=== PATIENT | female | born 1975 | race Caucasian/White ===

== ENCOUNTER 2018-11-30 12:54 | Emergency (ER) | payer OTHER, SELFPAY ==
[2018-11-30 13:09] VITALS: BP 106/49; PULSE 93; RESP 16; TEMP 36.5; O2SAT 96
--- NOTE | 2018-11-30 13:22 | DI.RAD_ITS ---
SYMPTOMS/DIAGNOSIS: LATERAL PAIN AND SWELLING S/P FALL RIGHT ANKLE: Soft tissue swelling is demonstrated over the lateral malleolus. There is no evidence of a fracture or dislocation.
--- NOTE | 2018-11-30 13:25 | ED.GENADUL_ITS ---
Discharge Plan Disposition Patient Disposition: HOME Condition: Improving Discharge Details Chief Complaint: Orthopedic Clinical Impression: Right ankle sprain Primary Care Provider: Geovanna Spencer V ED Provider: Ken Palacios Home Meds and New Rx's Prescriptions: No Action aspirin 325 MG tablet 325 mg PO DAILY RF: 0 eletriptan [Relpax] 20 MG tablet 20 mg PO ONCE RF: 0 cyclobenzaprine 5 MG tablet 5 mg PO TID RF: 0 ibuprofen 800 MG tablet 800 mg PO RF: 0 Discharge Instructions Instructions: Ankle Sprain (ED) Additional Instructions: Nonweightbearing with use of crutches 3 to 5 days time, then begin crutch walking, then walking with boot, then wean from boot entirely over approximately 2 weeks. Elevate, ice to reduce pain and swelling. Return for any other acute concerns. Tylenol and/or ibuprofen as needed for discomfort. Medical Decision Making 43-year-old female who slipped while climbing into a truck, falling backwards on her ankle and rolling it. She did not hurt her self in any other way. She arrives with a tender and swollen right lateral malleolus. Referred for x-ray which does not reveal underlying fracture. Consistent with acute right ankle sprain. She is significantly swollen and tender. Will place an equalizer walking boot with crutches. She understands outpatient plan to wean from crutch walking, subsequent wean from the boot. She will return for worsening or any other acute concern. HPI General Mode of arrival: ambulatory . Date/Time Provider Initiated Documentation: 11/30/18 13:12 . Limitations to Documentation: no limitations . Information obtained by: patient . History of Present Illness 43 year old F presents to the emergency department with the chief complaint of Right ankle pain after fall, described as mild and moderate, Quality is described as dull and constant, and is localized to the right and lower extremity. Patient reports no radiation. Patient started experiencing this hour(s) and it has been constant. No relieving factors improve symptom(s), No exacerbating factors reported . Patient notes other (No other injury, no numbness or to going). Patient did receive the following treatments prior to arrival, other (Tylenol) Related Data Home Medications Medication Instructions Recorded Confirmed aspirin 325 mg PO DAILY tab-cap 02/13/16 11/30/18 cyclobenzaprine 5 mg PO TID tab-cap 02/13/16 11/30/18 eletriptan [Relpax] 20 mg PO ONCE tab-cap 02/13/16 11/30/18 ibuprofen 800 mg PO 03/18/16 Allergies Allergy/AdvReac Type Severity Reaction Status Date / Time clarithromycin Allergy Unknown Unverified 11/30/18 13:12 promethazine Allergy Unknown Unverified 11/30/18 13:12 General Stated Complaint: Orthopedic MAC: 4 Review of Systems Review of Systems No head/neck/chest/back/abdominal injury. No numbness or tingling. 6 systems reviewed and otherwise no PFSH Social History Smoking/Tobacco Use Status: Current every day Tobacco Type: cigarettes Alcohol Intake: never Substance use type: does not use Exam Narrative Exam Narrative: GEN: awake, alert, oriented 3. Pleasant, well groomed, interactive. HEAD: Normocephalic, atraumatic ENT: Mucous membranes moist, oropharynx unremarkable, External ear exam unremarkable EYES: PERRL, EOMI NECK: Full ROM, no GODFREY, no menigismus CHEST/RESP: Nontender, clear to auscultation bilateral, no wheeze/rhonchi/rales CARDIOVASCULAR: RRR, no murmur, rub mary. 2+ Rad pulse bilateral ABDOMEN: Soft, nontender, no mass. +Bowel sounds EXT: Right lateral malleoli or tenderness, swelling. No significant tenderness or laxity of the knee. No significant tenderness or laxity of the hip. The right ankle motor is limited by pain. 2+ DP bilateral lower extremity. Sensation intact throughout Neuro: Grossly normal neurologic exam, conversant, interactive. Psych: Speech fluent, thoughts congruent, affect normal Course Vital Signs Temperature 36.5 C 11/30/18 13:09 Pulse 93 H 11/30/18 13:09 Respiratory Rate 16 11/30/18 13:09 Blood Pressure 106/49 L 11/30/18 13:09 Pulse Oximetry 96 11/30/18 13:09 Temperature 36.5 C 11/30/18 13:09 Temperature Source Skin 11/30/18 13:09 Pulse 93 H 11/30/18 13:09 Respiratory Rate 16 11/30/18 13:09 Respiratory Effort Non-Labored 11/30/18 13:09 Blood Pressure 106/49 L 11/30/18 13:09 Blood Pressure Position Sitting 11/30/18 13:09 Pulse Oximetry 96 11/30/18 13:09 Oxygen Delivery Method Room Air 11/30/18 13:09 Oxygen Flow Rate 0 11/30/18 13:09 Pain Level 10 11/30/18 13:09
[2018-11-30 14:37] VITALS: BP 106/49; PULSE 93; RESP 16; TEMP 36.5; O2SAT 96
[2018-11-30] MEDS: Ibuprofen 800 MG TAB (14:38)
== END 2018-11-30 14:39 | disposition home or self-care (01) ==
PROVIDERS: Emergency Provider Emergency Medicine; PCP Family Medicine
DX: S93.401A Sprain of unspecified ligament of right ankle, initial encounter (principal); V58.4XXA Person boarding or alighting a pick-up truck or van injured in noncollision transport accident, initial encounter; X50.9XXA Other and unspecified overexertion or strenuous movements or postures, initial encounter
CPT/HCPCS: 99283; 73610; E0114; L4361

== ENCOUNTER 2019-05-18 12:31 | Emergency (ER) | payer OTHER, SELFPAY ==
[2019-05-18] VITALS (17 sets, daily range): BP systolic 96–119; BP diastolic 55–69; PULSE 68–96; RESP 10–21; TEMP 36.1–36.6; O2SAT 98–100
--- NOTE | 2019-05-18 13:01 | ED.GENADUL_ITS ---
Discharge Plan Discharge Details Chief Complaint: Chest Pain Primary Care Provider: Geovanna Spencer V ED Provider: Jarod Thomas Home Meds and New Rx's Prescriptions: No Action eletriptan [Relpax] 20 MG tablet 20 mg PO ONCE RF: 0 Medical Decision Making 43-year-old female with an episode of chest pain tachypnea and carpopedal spasms differential diagnosis anxiety reaction versus acute coronary syndrome versus pulmonary embolus patient is low risk by Wells PERC negative. some increased stress through the holidays. Patient smoker down to 1 pack every 3 days discussed a quit date patient still pre-contemplative will follow-up with primary care. Due to smoking age and acuity of chest pain chest pain work-up troponin x2 chest x-ray basic labs EKG monitoring in emergency department observation. HPI 43-year-old female past medical history of tubal ligation and ulcerative colitis not currently on any treatment no hospitalizations for her colitis presents with an acute episode of sharp midsternal chest pain with shortness of breath tachypnea anxiety and clenched tingling hands. No loss of consciousness no recent illness fever chills nausea vomiting or diarrhea.. Patient given aspirin and nitroglycerin by EMS patient symptom-free on arrival in emergency department. Chest pain was sharp midsternal nonradiating. Improved after aspirin nitroglycerin and time. General Date/Time Provider Initiated Documentation: 05/18/19 12:44 . Related Data Home Medications Medication Instructions Recorded Confirmed eletriptan [Relpax] 20 mg PO ONCE tab-cap 02/13/16 05/18/19 Allergies Allergy/AdvReac Type Severity Reaction Status Date / Time clarithromycin AdvReac Intermediate rash / Unverified 05/18/19 12:40 puffiness in face promethazine AdvReac Intermediate rash / Unverified 05/18/19 12:41 puffiness in face General Stated Complaint: Chest Pain MAC: 2 Review of Systems All systems reviewed & are unremarkable except as noted in HPI and below PFSH Social History Smoking/Tobacco Use Status: Current every day Tobacco Type: cigarettes Alcohol Intake: current Alcohol Intake frequency: holidays/special occasions only Drug use: Never Substance use type: does not use Details: smokes 1 pack per 3 days Do you feel safe at home: Yes Do you feel safe in your relationship?: Yes Exam Narrative Exam Narrative: Pulse oximetry reviewed by me and is normal [] Constitutional: Pt is in no acute distress. pt is well appearing. oriented to person, place, and time. Eyes: conjunctivae are normal. Pupils are equal, round, and reactive to light. No scleral icterus. extraocular muscles are intact Ears/Nose/Mouth/Throat: mucus membranes are moist. Musculoskeletal: neck is supple. normal range of motion in all extremities. Cardiovascular: Normal rate and rhythm. No lower extremity edema [] Respiratory: effort is normal . pt exhibits no stridor or respiratory distress. [Regular rate and rhythm lungs clear to auscultation bilaterally] GastrointestinaI: abdomen soft, +BS, nontender, -rebound, -guarding. Neurological: alert and oriented to person, place, and time. he has normal strength, no tremor. Skin: Skin is warm and dry. he is not diaphoretic. Distal perfusion in tact, warm extremities, cap refill ? 2 seconds. Hem/Lymph/Imm: No cervical LAD, no goiter, no conjunctival pallor Psych: normal mood and affect. behavior is normal Triage and nurse notes reviewed.[] Course Vital Signs Vital signs: Vital Signs Temperature 36.1 C L 05/18/19 12:27 Pulse 78 05/18/19 12:27 Respiratory Rate 10 L 05/18/19 12:27 Blood Pressure 113/64 05/18/19 12:27 Pulse Oximetry 100 05/18/19 12:27 Temperature 36.1 C L 05/18/19 12:27 Temperature Source Skin 05/18/19 12:27 Pulse 78 05/18/19 12:27 Respiratory Rate 18 05/18/19 12:46 Respiratory Effort 05/18/19 12:46 Respiratory Depth Normal 05/18/19 12:46 Respiratory Pattern Normal 05/18/19 12:46 Blood Pressure 113/64 05/18/19 12:27 Pulse Oximetry 100 05/18/19 12:27 Oxygen Delivery Method Room Air 05/18/19 12:27 Oxygen Flow Rate 0 05/18/19 12:27 Pain Level 0 05/18/19 12:27
[2019-05-18 13:16] LABS: Abs Immature Grans 0.01 k/cumm (0.0-0.09); Absolute Basophil Count 0.03 k/cumm (0.0-0.2); Absolute Eosinophil Count 0.03 k/cumm (0.0-0.7); Absolute Lymphocyte Count 1.29 k/cumm (1.2-3.4); Absolute Monocyte Count 0.29 k/cumm (0.11-0.7); Absolute Neutrophil Count 3.26 k/cumm (1.2-6.7); Basophils % 0.6; Eosinophils % 0.6; HCT 38.1 % (36.0-46.0); Immature Grans % 0.2; Lymphocytes % 26.3; Mean Corp. HGB Concentration 31.5 g/dL (32.0-36.0); Mean Corpuscular Hemoglobin 25.4 pg (27.0-33.0); Mean Corpuscular Volume 80.5 fL (80-95); Mean Platelet Volume 10.9 fL (8.0-11.0); Monocytes % 5.9; Neutrophils % 66.4; Platelet Count 214 x1000/uL (130-400); RBC 4.73 m/cumm (4.00-5.20); RBC Distribution Width 16.3 % (11.7-14.6); White Blood Cell Count 4.91 k/cumm (4.4-10.8)
--- NOTE | 2019-05-18 13:25 | DI.RAD_ITS ---
EXAM: XR CHEST 2V PA LATERAL XR CHEST 2V PA LATERAL CLINICAL HISTORY: CP CP TECHNIQUE: 2D digital imaging was performed. COMPARISON: No exams were available for comparison FINDINGS: The heart is not enlarged. The lungs are clear and well expanded. No pleural effusion seen. Mediastin al contours appear intact. IMPRESSION: Normal chest
[2019-05-18 13:27] LABS: ALT 13 U/L (14-59); AST 16 U/L (15-37); Albumin 3.9 g/dL (3.4-5.0); Alkaline Phosphatase 63 U/L (46-116); Anion Gap 12.1 mmol/L (3-11); BUN 7 mg/dL (7-18); Bilirubin, Total 0.3 mg/dL (0.2-1.0); CO2 22.9 mmol/L (21.0-32.0); CREATININE 0.77 mg/dL (0.55-1.02); Calcium 8.9 mg/dL (8.5-10.1); Chloride 105 mmol/L (98-107); Glucose 92 mg/dL (74-106); Magnesium 1.6 mg/dL (1.8-2.4); Potassium 3.6 mmol/L (3.5-5.1); Sodium 140 mmol/L (136-145); Total Protein 7.3 g/dL (6.4-8.2)
[2019-05-18 13:34] LABS: Troponin I < 0.05 ng/Ml (<0.06)
--- NOTE | 2019-05-18 14:01 | W.ED.FU ---
4:02 PM Ms. Milian is resting comfortably no chest pain no shortness of breath troponin negative x2 EKG unremarkable regular rhythm at 83 normal axis normal intervals no STEMI no ST depressions no ischemia. Patient low side heart score and gestalt possible anxiety reaction no evidence of infection of the patient follow-up with her primary care doctor and discuss strict return instructions including a repeat chest pain shortness of breath loss consciousness or other concern..
[2019-05-18 15:50] LABS: Troponin I < 0.05 ng/Ml (<0.06)
== END 2019-05-18 16:10 | disposition home or self-care (01) ==
PROVIDERS: Emergency Provider Emergency Medicine; PCP Family Medicine
DX: R07.9 Chest pain, unspecified (principal); R06.02 Shortness of breath; F41.9 Anxiety disorder, unspecified; R06.82 Tachypnea, not elsewhere classified
CPT/HCPCS: 80053; 93005; 99284; 71046; 83735; 84484; 85025; 93010

== ENCOUNTER 2019-05-23 09:25 | Outpatient (REF) | payer OTHER, SELFPAY ==
[2019-05-23 15:44] LABS: Calculated LDL 157 mg/dL; Cholesterol 218 mg/dL (<200); HDL Cholesterol 45 mg/dL (40-60); Triglyceride 80 mg/dL (<150)
== END 2019-05-23 09:45 ==
LOC: NCHCN 09:25
PROVIDERS: PCP Family Medicine; Visit Provider Physician Assistant Medical
DX: Z00.00 Encounter for general adult medical examination without abnormal findings (principal); Z13.220 Encounter for screening for lipoid disorders
CPT/HCPCS: 80061

== ENCOUNTER 2019-06-01 01:01 | Outpatient (CLI) | payer OTHER, SELFPAY ==
--- NOTE | 2019-06-01 08:41 | ETT_ITS ---
APPROVED REPORT Exam: Exercise Treadmill Patient Location: Out-Patient Room/Bed: Stress Nurse: Delma Ray RN BMI: 22.46 Baseline Rhythm: Sinus Rhythm Indications: Patient reports for the past 6 weeks she has been experiencing brief (1-2 minutes) episo marcy of mid sternal and left lateral chest pain and heaviness, not associated with activity, that are getting more frequent over time. Patient presented to the ER on 05/18/19 with midsternal chest pressu re associated with SOB, dizziness, numbness of left hand and pain in left arm. This episode lasted lo nger and was stronger in intensity than any of the other episodes. Medical History Medical History: GERD Cardiac Medications: None, Allergies: larithromycin, Promethazine Cardiac Risk Factors: FHX of CAD, Smoking Previous Cardiac Procedures: None Pretest Chest Pain Characteristics: None Exercise History: Physically active Physical Disabilities: None Lung Sounds: Clear to auscultation Heart Sounds: Regular Stress Test Details Test: Exercise stress testing was performed using a Devyn protocol. Rest Stress HR Max Heart Rate (APMHR): 178 bpm Resting HR Supine: 87 bpm Target HR (85% APMHR): 151 bpm Resting HR Standin bpm Max HR Achieved: 156 bpm % of APMHR: 87 HR response to stress: Normal HR response to stress BP Resting BP Supine: 104/60 mmHg Resting BP Standin/64 mmHg Max BP: 144/60 mmHg BP response to stress: Normal blood pressure response to stress. ECG Resting ECG: Sinus Rhythm ST Change: Normal Ectopy: none Stress ECG: Sinus Tachycardia ST Change: Normal Arrhythmia: None Recovery ECG: Sinus Rhythm Recovery ST Change: Upsloping ST depression Lead(s): V5, V6 Recovery ST Deviation: 1 mm Recovery Arrhythmia: None Clinical Reason for Termination: Fatigue Stress Symptoms: Patient had brief episode of left chest sharpness at 7 minutes 10 seconds of exerc ise. Exercise duration: 9 min42 sec Highest Stage Achieved: Stage 3: 3.4 mph at 14% grade. Exercise capacity: 11.31 METs Functional Capacity: Average Capacity Stress ECG Conclusion 1. She exercised for 9 minutes and 42 seconds (11.3 METS) 2. The rate-pressure product was 22,000 which is below desired level for a maximal stress test. This is likely reflective of her lack of hypertension with exercise. 3. There were [address] depressions in the lateral leads during recovery which dissipated aft er 2 minutes. 4. The Evans Score (4) estimates an annual cardiovascular mortality of 1% and a five year survival of 94%. Using the Evans Score there is an intermediate probability of angiographic coronary disease. Protocol Used: Devyn Protocol Stress Test Summary STAGE Time (mins) Speed (mph) Grade (%) HR BP SYMPTOMS METS Supine 87 104/60 Standing 89 106/64 1 3 1.7 10 121 110/62 4.6 2 6 2.5 12 130 120/64 7 3 9 3.4 14 150 142/80 10.2 4 12 4.2 16 12.9 5 15 5.0 18 17.2 1 min recovery 140 144/60 3 min recovery 105 124/50 6 min recovery 95 102/60
== END 2019-06-01 01:21 ==
PROVIDERS: PCP Family Medicine; Visit Provider Physician Assistant Medical
DX: R07.9 Chest pain, unspecified (principal); R06.02 Shortness of breath; R42 Dizziness and giddiness; K21.9 Gastro-esophageal reflux disease without esophagitis; Z82.49 Family history of ischemic heart disease and other diseases of the circulatory system
CPT/HCPCS: 93017

== ENCOUNTER 2020-01-10 12:58 | Outpatient (REF) | payer OTHER, SELFPAY ==
[2020-01-10 21:49] LABS: Abs Immature Grans 0.02 10^3/uL (0.0-0.06); Absolute Basophil Count 0.04 10^3/uL (0.0-0.2); Absolute Eosinophil Count 0.04 10^3/uL (0.0-0.7); Absolute Lymphocyte Count 1.24 10^3/uL (1.2-3.4); Absolute Monocyte Count 0.32 10^3/uL (0.1-0.8); Absolute Neutrophil Count 3.89 10^3/uL (1.2-6.7); Basophils % 0.7; Eosinophils % 0.7; HCT 35.3 % (36.0-46.0); HGB 10.6 g/dL (11.2-15.7); Immature Grans % 0.4; Lymphocytes % 22.3; MCH 24.6 pg (27.0-33.0); MCV 81.9 fL (80-95); MPV 11.6 fL (8.0-11.0); Monocytes % 5.8; Neutrophils % 70.1; Nucleated RBC 0 %; Platelet Count 241 10^3/uL (130-400); RBC 4.31 10^6/uL (3.93-5.22); RDW 16.3 % (11.7-14.6); RDW-SD 49.4 fL; WBC 5.55 10^3/uL (4.4-10.8)
[2020-01-10 22:09] LABS: ALT 16 U/L (14-59); AST 17 U/L (15-37); Albumin 3.8 g/dL (3.4-5.0); Alkaline Phosphatase 65 U/L (46-116); BUN 7 mg/dL (7-18); Bilirubin, Total 0.2 mg/dL (0.2-1.0); CREATININE 0.69 mg/dL (0.55-1.02); Chloride 104 mmol/L (98-107); Glucose 81 mg/dL (74-106); Potassium 4.4 mmol/L (3.5-5.1); Sodium 139 mmol/L (136-145); Total Protein 6.8 g/dL (6.4-8.2)
[2020-01-10 22:27] LABS: ESR 15 mm/hr (0-20)
[2020-01-15 15:16] LABS: IgA 330 mg/dL (85-499); Interpretation (See Note); Tissue Transglutaminase IgA <1.2 U/mL (<4.0)
== END 2020-01-10 13:18 ==
LOC: NCHCN 12:58
PROVIDERS: PCP Family Medicine; Visit Provider Physician Assistant Medical
DX: R19.7 Diarrhea, unspecified (principal)
CPT/HCPCS: 80053; 82784; 83516; 85652; 84443; 85025

== ENCOUNTER 2020-01-11 15:13 | Outpatient (REF) | payer OTHER, SELFPAY ==
[2020-01-12 11:34] LABS: Campylobacter PCR Negative (Negative); Salmonella PCR Negative (Negative); Shiga Toxin PCR Negative (Negative); Shigella/Enteroinvasive Ecoli Negative (Negative)
[2020-01-16 14:57] LABS: Helicobacter pylori Ag, Feces Negative (Negative)
== END 2020-01-11 15:33 ==
LOC: NCHCN 15:13
PROVIDERS: PCP Family Medicine; Visit Provider Physician Assistant Medical
DX: R19.7 Diarrhea, unspecified (principal)
CPT/HCPCS: 87338; 87505; 83630

== ENCOUNTER 2020-06-12 19:02 | Outpatient (REF) | payer OTHER, SELFPAY ==
[2020-06-13 16:48] LABS: COVID-19 RT-PCR UVMMC Result Negative (Negative)
== END 2020-06-12 19:22 ==
LOC: NCHCN 19:02
PROVIDERS: PCP Family Medicine; Visit Provider Nurse Practitioner Family
DX: R05 Cough (principal)
CPT/HCPCS: U0003

== ENCOUNTER 2020-07-10 18:25 | Outpatient (REF) | payer OTHER, SELFPAY ==
--- NOTE | 2020-07-10 17:15 | PAPFT_PTH ---
PATIENT: Loyda Milian LOC: [facility]#:[id number] AGE/SX: 44/F ROOM: RE07/10/[address]: Tristen Briseno : 1975 BED: DIS: 07/10/2020 SPEC #: [id number] RECD: 07/11/20 12:48 STATUS: ASTON REQ #: [id number] JN: 07/10/20 17:[address]: Tristen Briseno DEPT: [facility] Cytology RECD BY: Fanny Foster ENTERED: 07/11/20 12:49 SP TYPE: PAPFT OTHR DR: Geovanna Spencer V Tissues: 1 - CX/ENDOCX FOR PAP SMEARS Procedures: PAP THIN PREP/UVM Screening HPV DNA PROBE Comments: [id number]
[2020-07-12 16:24] LABS: Chlamydia Result Negative (Negative); GC Result Negative (Negative)
== END 2020-07-10 18:26 | disposition home or self-care (01) ==
LOC: NCHCN 18:25
PROVIDERS: PCP Family Medicine; Visit Provider Physician Assistant Medical
DX: Z12.4 Encounter for screening for malignant neoplasm of cervix (principal); Z11.51 Encounter for screening for human papillomavirus (HPV)
CPT/HCPCS: 87491; 87591; 88142; 87480; 87510; 87624; 87660

== ENCOUNTER 2020-12-02 21:27 | Emergency (ER) | payer OTHER, SELFPAY ==
--- NOTE | 2020-12-02 21:50 | ED.GENADUL_ITS ---
Discharge Plan Disposition Patient Disposition: HOME Condition: Good Discharge Details Clinical Impression: Flap laceration of skin Primary Care Provider: Geovanna Spencer V ED Provider: Lyndsey Beyer Home Meds and New Rx's Prescriptions: Continued eletriptan [Relpax] 20 MG tablet 20 mg PO ONCE RF: 0 amitriptyline 10 mg tablet 10 mg DAILY RF: 0 pantoprazole 40 mg tablet,delayed release (DR/EC) 40 mg DAILY RF: 0 Discharge Instructions Instructions: Laceration (ED), Skin Adhesive Care (ED) Additional Instructions: Keep wound clean, dry, covered. Monitor for signs infection sitting redness warmth or drainage, increased pain, fever/chills. If you develop these or other new/worsening symptoms please seek care urgently once again. Otherwise, please keep a Band-Aid on the wound. Please allow the adhesive to come off naturally. Please do not put any ointment over this as it may cause a breakdown prematurely. As we discussed, the flap may not be viable and eventually may fall off. However, you should have good skin healing underneath this. Please follow-up with primary care in 1 week for reevaluation. If you develop any new or worsening symptoms please seek care urgently once again. Tetanus was updated today. Referrals: Geovanna Spencer MD [Primary Care Provider] - Discharge Data Discharge Date/Time-TO BE ENTERED AT DEPARTURE: 12/02/20 22:28 Medical Decision Making Patient is a pleasant [id number] female presenting today with chief complaint of right thumb injury. She reports that prior to arrival she was cutting vegetables and accidentally cut her finger. States that she has redressed the wound multiple times and continues to have some bleeding. Is concerned that this is been persistent. Unknown tetanus status. Denies other injuries from the incident. On exam, patient has a flap laceration appears quite superficial on the radial side of the thumb over the distal phalanx. No active bleeding. The flap is quite thin and likely not viable. I did discuss this with the patient and potential course associated with this. We discussed care of the wound. This will catch. Tissue is too thin for stitches. To protect and help with bleeding, we discussed risks/benefits and expected procedural steps associated with cleaning closure with adhesive. She voices understanding and wishes to proceed. Wound was irrigated. It was explored to base in a bloodless field with no FB or debris noted. Tourniquet was used for evaluation. Deep structures intact. Thin l hung of adhesive was applied, wound edges reapproximate well. Patient and I discussed wound care and care of adhesive in depth. Return precautions discussed, in particular signs of infection. All of her quesitons and concerns were addressed, she is in agreement with this plan. HPI General Mode of arrival: ambulatory . Date/Time Provider Initiated Documentation: 12/02/20 21:50 . Limitations to Documentation: no limitations . Information obtained by: patient and RN notes reviewed . History of Present Illness 45 year old F presents to the emergency department with the chief comp laint of right thumb laceration, described as mild, with intensity rated at 2. Quality is described as burning, and is localized to the right and upper extremity. Patient reports no radiation. Patient started experiencing this hour(s) and it has been constant. No relieving factors improve symptom(s), No exacerbating factors reported . Patient notes no other symptoms.. Patient did receive the following treatments prior to arrival, none Related Data Home Medications Medication Instructions Recorded Confirmed eletriptan [Relpax] 20 mg PO ONCE tab-cap 02/13/16 12/02/20 amitriptyline 10 mg DAILY 12/02/20 12/02/20 pantoprazole 40 mg DAILY 12/02/20 12/02/20 Allergies Allergy/AdvReac Type Severity Reaction Status Date / Time clarithromycin AdvReac Intermediate rash / Unverified 12/02/20 22:25 puffiness in face promethazine AdvReac Intermediate rash / Unverified 12/02/20 22:25 puffiness in face General MAC: 2 Review of Systems Constitutional Constitutional: Reports as per HPI, Denies chills and Denies fever(s) Musculoskeletal Musculoskeletal: Reports as per HPI Integumentary/Breasts Skin/Breast: Reports as per HPI Neurologic Neurologic: Reports as per HPI, Denies sensory deficit and Denies paresthesias [facility] Social History Smoking/Tobacco Use Status: Current every day Tobacco Type: cigarettes Smoking risk assessment performed?: Yes Alcohol Intake: current Alcohol Intake frequency: holidays/special occasions only Drug use: Never Substance use type: does not use Details: smokes 1 pack per 3 days Do you feel safe at home: Yes Do you feel safe in your relationship?: Yes Exam Const General: cooperative, healthy appearing, comfortable, no acute distress and well developed Nutritional Appearance: average body habitus and well nourished Orientation: alert and awake Resp Effort & Inspection: normal respiratory effort, able to speak in complete sentences and no respiratory distress Cardio Rate: regular rate Rhythm: regular rhythm Skin Trauma: laceration Neuro General: patient alert and patient awake Cognition: normal cognition Speech: speech normal Gait: normal gait Sensory Exam: no sensory deficits noted Extrem Hand/finger images: 1. Patient has a superficial flap laceration approximately 1 cm in diameter. No active bleeding. The flap is able to be lifted up, base is clean with no foreign body or debris noted. Concerned for viability of the flap. Full ROM of finger, ligamentously intact. Psych Appearance: grossly normal and well kempt Mental Status: mental status grossly normal Speech and Movement: speech and movement normal
[2020-12-02 21:59] VITALS: BP 116/58; PULSE 84; RESP 16; TEMP 36.7; O2SAT 99
== END 2020-12-02 22:28 | disposition home or self-care (01) ==
PROVIDERS: Emergency Provider Physician Assistant; PCP Family Medicine
DX: S61.011A Laceration without foreign body of right thumb without damage to nail, initial encounter (principal); W26.0XXA Contact with knife, initial encounter
CPT/HCPCS: 12001

== ENCOUNTER 2021-01-08 16:46 | Outpatient (REF) | payer OTHER, SELFPAY ==
[2021-01-10 15:39] LABS: COVID-19 RT-PCR UVMMC Result Negative (Negative)
== END 2021-01-08 16:47 | disposition home or self-care (01) ==
LOC: LBN 16:46
PROVIDERS: PCP Family Medicine; Visit Provider Family Medicine
DX: Z20.822 Contact with and (suspected) exposure to COVID-19 (principal); J06.9 Acute upper respiratory infection, unspecified
CPT/HCPCS: U0003

== ENCOUNTER 2021-01-13 12:25 | Outpatient (REF) | payer OTHER, SELFPAY ==
[2021-01-15 13:57] LABS: COVID-19 RT-PCR UVMMC Result Negative (Negative)
== END 2021-01-13 12:26 | disposition home or self-care (01) ==
LOC: NCHCN 12:25
PROVIDERS: PCP Family Medicine; Visit Provider Nurse Practitioner Family
DX: Z20.822 Contact with and (suspected) exposure to COVID-19 (principal); R05 Cough
CPT/HCPCS: U0003

== ENCOUNTER 2021-02-19 14:02 | Outpatient (REF) | payer OTHER, SELFPAY | END 2021-02-19 14:03 | disposition home or self-care (01) | LOC: NCHCN 14:02 | PROVIDERS: PCP Family Medicine; Visit Provider Nurse Practitioner Family | DX: N39.0 Urinary tract infection, site not specified (principal) | CPT/HCPCS: 87086 ==

== ENCOUNTER 2021-03-03 15:45 | Outpatient (REF) | payer OTHER, SELFPAY ==
[2021-03-03 20:13] LABS: ESR 6 mm/hr (0-20)
[2021-03-03 20:14] LABS: Abs Immature Grans 0.01 10^3/uL (0.0-0.06); Absolute Basophil Count 0.07 10^3/uL (0.0-0.2); Absolute Eosinophil Count 0.11 10^3/uL (0.0-0.7); Absolute Monocyte Count 0.27 10^3/uL (0.1-0.8); Absolute Neutrophil Count 4.45 10^3/uL (1.2-6.7); Eosinophils % 1.6; HCT 45.5 % (36.0-46.0); HGB 15.2 g/dL (11.2-15.7); Immature Grans % 0.1; MCH 31.1 pg (27.0-33.0); MCHC 33.4 % (32.0-36.0); MCV 93.2 fL (80-95); MPV 11.6 fL (8.0-11.0); Monocytes % 3.9; Neutrophils % 63.4; Nucleated RBC 0 %; Platelet Count 179 10^3/uL (130-400); RBC 4.88 10^6/uL (3.93-5.22); RDW 12.3 % (11.7-14.6); RDW-SD 42.5 fL; WBC 7.01 10^3/uL (4.4-10.8)
[2021-03-03 20:33] LABS: ALT 17 U/L (14-59); AST 14 U/L (15-37); Alkaline Phosphatase 72 U/L (46-116); Anion Gap 5.5 mmol/L (3-11); BUN 7 mg/dL (7-18); Bilirubin, Total 0.3 mg/dL (0.2-1.0); C-Reactive Protein 0.07 mg/dL (0.0-0.3); CO2 30.5 mmol/L (21.0-32.0); CREATININE 0.8 mg/dL (0.55-1.02); Calcium 9.3 mg/dL (8.5-10.1); Chloride 106 mmol/L (98-107); Glucose 87 mg/dL (74-106); Potassium 4.5 mmol/L (3.5-5.1); Sodium 142 mmol/L (136-145); Total Protein 6.9 g/dL (6.4-8.2)
== END 2021-03-03 15:46 | disposition home or self-care (01) ==
LOC: NCHCN 15:45
PROVIDERS: PCP Family Medicine; Visit Provider Nurse Practitioner Family
DX: R19.7 Diarrhea, unspecified (principal)
CPT/HCPCS: 80053; 85652; 85025; 86140

== ENCOUNTER 2021-03-04 15:09 | Outpatient (REF) | payer OTHER, SELFPAY ==
[2021-03-04 20:28] LABS: C Diff PCR Negative (Negative)
[2021-03-05 23:42] LABS: Campylobacter PCR Negative (Negative); Salmonella PCR Negative (Negative); Shiga Toxin PCR Negative (Negative); Shigella/Enteroinvasive Ecoli Negative (Negative)
== END 2021-03-04 15:10 | disposition home or self-care (01) ==
LOC: NCHCN 15:09
PROVIDERS: PCP Family Medicine; Visit Provider Nurse Practitioner Family
DX: R19.7 Diarrhea, unspecified (principal)
CPT/HCPCS: 87329; 87493; 87505; 82272; 83630; 87177

== ENCOUNTER 2021-03-05 10:14 | Outpatient (CLI) | payer OTHER, SELFPAY ==
[2021-03-05] MEDS: Normal Saline - Diluent 50 ML VIAL IV (13:38)
[2021-03-05] MEDS: Omnipaque 350 MG/ML 100 ML BTL IJ (13:38)
[2021-03-05] MEDS: Normal Saline Flush 10 ML SYR IVP (13:39)
[2021-03-05] MEDS: Breeza Beverage 473 ML BTL PO (13:40)
[2021-03-05] MEDS: Omnipaque 350 MG/ML 50 ML BTL PO (13:41)
--- NOTE | 2021-03-05 13:41 | DI.CT_ITS ---
Exam(s) CT ABDOMEN PELVIS W EXAM: CT ABDOMEN PELVIS W CLINICAL HISTORY: ABD PAIN, R10.9 TECHNIQUE: Imaging Protocol: Axial computed tomography images with coronal and sagittal reformatted images were created and reviewed CONTRAST MATERIAL: Intravenous: Omnipaque 350 Contrast volume:84 mL Oral: Yes COMPARISON: CT ABD PELVIS WITH CONTRAST from 03/03/2012 FINDINGS: ABDOMEN: Lung Bases: Dependent atelectasis. Liver: Normal density. There are few tiny nonspecific hypodensities in the liver. They are too small for further characterization. Portal, Superior Mesenteric, and Splenic Veins: Unremarkable. Gallbladder and Biliary Tract: No radiodense calculus or dilation. Pancreas: Normal density, no abnormal calcifications or inflammatory process. Spleen: Normal. Adrenals: No masses seen. Kidneys: Normal size, contour and axis. No radiodense stones or obstructive uropathy. No masses seen. Abdominal Aorta: Abdominal portion non-dilated. Atherosclerosis. Bowel: No obstruction or bowel wall thickening. Appendix is unremarkable. Peritoneal Cavity: No ascites, collection or mesenteric inflammatory response. No free air. Lymph Nodes: Within normal limits. Bones: Within normal limits for the patient's age. Soft Tissues: Unremarkable. PELVIS: Bladder: Symmetric distention, no gross wall thickening. Reproductive Organs: There is a calcified uterine fibroid. Lymph Nodes: Within normal limits. Bones: Within normal limits for the patient's age. IMPRESSION: No acute abdominal or pelvic process. RADIATION DOSE DELIVERED: 791.26mGy.cm Total DLP DATA REPOSITORY: All CT scans at this facility are submitted to the National Radiology Data Registry (NRDR) Dose Index Registry (DIR) with the [employer] (ACR). RADIATION OPTIMIZATION: All CT scans at this facility use at least one of these dose optimization te chniques: automated exposure control; mA and/or kV adjustment per patient size (includes targeted exa ms where dose is matched to clinical indication); or iterative reconstruction.
== END 2021-03-05 10:34 ==
PROVIDERS: PCP Family Medicine; Visit Provider Nurse Practitioner Family
DX: R10.9 Unspecified abdominal pain (principal)
CPT/HCPCS: 74177; J3490; Q9967

== ENCOUNTER 2021-03-20 01:46 | Outpatient (CLI) | payer OTHER, SELFPAY ==
--- NOTE | 2021-03-20 | DI.MAMMO_ITS ---
Exam(s) MAMMO SCREENING EXAM: MAMMO SCREENING CLINICAL HISTORY: SCREENING, PREVENTATIVE CARE, Z00.00. TECHNIQUE: Bilateral full field digital CC and MLO mammographic images were obtained with 3D tomosyn thesis and utilizing computer aided detection (CAD). COMPARISON: Prior baseline mammogram of October 2016 Significant family history. Her mother was diagnosed with breast cancer in her 60s. FINDINGS: The fibroglandular tissue pattern is moderately dense, this decreasing the sensitivity of the mammogr am for finding in underlying lesions. In the left breast there is well-defined noncalcified 1.5 by 1.3 cm nodule located 5 cm in from the n ipple on the MLO and CC views, slightly lateral of center. No malignant-appearing microcalcification groups is region or elsewhere in either breast. No new sig nificant focal findings in the opposite-right breast. There is no significant architectural distortion nor skin thickening-retraction. IMPRESSION: There is a 15 x 13 millimeter noncalcified well-defined nodule in the left breast as described above. Ultrasound is recommended to determine if this is solid or cystic. BI-RADS Category 0 - Assessment Incomplete: Need additional imaging evaluation Breast Density - Category C - Heterogeneously dense Breast density Category C or D implies that the patient has dense breast tissue. Dense breast tissue can make it harder to find cancer on a mammogram. Dense breast tissue is also associated with an incr eased risk of breast cancer. This information about the result of the mammogram report was provided to the patient to raise their awareness. Use this report when you speak with the patient about their risks for breast cancer, which includes their family history. At that time, you may recommend additional screening tests (Ultrasoun d or MRI) as these tests may add significant information. A negative radiographic report should not delay biopsy if a dominant or clinically suspicious mass is present. Up to ten percent of cancers are not identified on mammography. A negative report may reinforce clinical impression. Adenosis and dense breasts may obscure an underlying neoplasm. False positive reports average 6 to 10%. Patient will receive a letter notifying them of these results.
== END 2021-03-20 02:06 ==
PROVIDERS: PCP Family Medicine; Visit Provider Physician Assistant Medical
DX: Z12.31 Encounter for screening mammogram for malignant neoplasm of breast (principal); N63.32 Unspecified lump in axillary tail of the left breast
CPT/HCPCS: 77063; 77067

== ENCOUNTER 2021-07-08 17:04 | Outpatient (REF) | payer OTHER, SELFPAY ==
[2021-07-08 19:34] LABS: COMMENT (LAB VIEW ONLY) 77.95 mg/dL; Microalb ug/mg Crea 28.5 ug/mg Cr
[2021-07-09 09:39] LABS: Bacteria Negative HPF (Negative); C & S Indicated? No; Casts Negative LPF (Negative); Crystals Negative HPF (Negative); Epithelial Cells Few HPF (Negative); Mucus Negative (Negative); RBC 0-2 HPF (0-2); WBC Negative HPF (0-5)
[2021-07-10 13:06] LABS: COVID-19 RT-PCR UVMMC Result Negative (Negative)
== END 2021-07-08 17:05 | disposition home or self-care (01) ==
LOC: NCHCN 17:04
PROVIDERS: Visit Provider Nurse Practitioner Family
DX: N39.0 Urinary tract infection, site not specified (principal); M79.18 Myalgia, other site; R39.89 Other symptoms and signs involving the genitourinary system; Z20.822 Contact with and (suspected) exposure to COVID-19
CPT/HCPCS: U0003; 81015; 82043; 82570; 87086

== ENCOUNTER 2021-07-10 18:36 | Outpatient (REF) | payer OTHER, SELFPAY ==
[2021-07-10 14:57] LABS: Abs Immature Grans 0.03 10^3/uL (0.0-0.06); Absolute Basophil Count 0.04 10^3/uL (0.0-0.2); Absolute Eosinophil Count 0.14 10^3/uL (0.0-0.7); Absolute Lymphocyte Count 1.53 10^3/uL (1.2-3.4); Absolute Monocyte Count 0.39 10^3/uL (0.1-0.8); Absolute Neutrophil Count 4.88 10^3/uL (1.2-6.7); Basophils % 0.6; HCT 44.6 % (36.0-46.0); HGB 14.4 g/dL (11.2-15.7); Immature Grans % 0.4; Lymphocytes % 21.8; MCH 30.5 pg (27.0-33.0); MCHC 32.3 % (32.0-36.0); MCV 94.5 fL (80-95); MPV 11.4 fL (8.0-11.0); Monocytes % 5.6; Neutrophils % 69.6; Nucleated RBC 0 %; Platelet Count 183 10^3/uL (130-400); RBC 4.72 10^6/uL (3.93-5.22); RDW 12.1 % (11.7-14.6); RDW-SD 42.6 fL; WBC 7.01 10^3/uL (4.4-10.8)
[2021-07-10 20:40] LABS: ALT 19 U/L (14-59); AST 17 U/L (15-37); Albumin 3.9 g/dL (3.4-5.0); Alkaline Phosphatase 65 U/L (46-116); Anion Gap 8.9 mmol/L (3-11); BUN 7 mg/dL (7-18); Bilirubin, Total 0.3 mg/dL (0.2-1.0); CO2 24.1 mmol/L (21.0-32.0); CREATININE 0.7 mg/dL (0.55-1.02); Chloride 103 mmol/L (98-107); Glucose 71 mg/dL (74-106); Potassium 3.9 mmol/L (3.5-5.1); Sodium 136 mmol/L (136-145); Total Protein 6.6 g/dL (6.4-8.2)
== END 2021-07-10 18:37 | disposition home or self-care (01) ==
LOC: NCHCN 18:36
PROVIDERS: PCP Nurse Practitioner Family; Visit Provider Nurse Practitioner Family
DX: M54.59 Other low back pain (principal)
CPT/HCPCS: 80053; 85025

== ENCOUNTER 2022-11-24 16:54 | Outpatient (REF) | payer OTHER, SELFPAY ==
--- NOTE | 2022-11-24 14:50 | ENDOMET_PTH ---
PATIENT: Loyda Milian LOC: [facility] U#:[id number] AGE/SX: 47/F ROOM: RE11/24/[address]: Nita Payne MD : 1975 BED: DIS: 11/24/2022 SPEC #: [id number] RECD: 11/24/22 17:36 STATUS: ASTON REAstrid #: [id number] JN: 11/24/22 14:[address]: Nita Payne DEPT: Surgical Specimen RECD BY: Fanny Foster ENTERED: 11/24/22 17:37 SP TYPE: Endomet OTHR DR: Gladys Villaseñor Tissues: 1 - ENDOMETRIUM BX/HERMAN Procedures: GROSS AND MICRO LEVEL 4 Comments: [id number]
== END 2022-11-24 16:55 | disposition home or self-care (01) ==
LOC: LBN 16:54
PROVIDERS: PCP Nurse Practitioner Family; Visit Provider Obstetrics & Gynecology
DX: N95.0 Postmenopausal bleeding (principal)
CPT/HCPCS: 88305

== ENCOUNTER 2022-12-11 15:28 | Outpatient (REF) | payer OTHER, SELFPAY ==
[2022-12-11 20:04] LABS: TSH (W/Ref FT4) 1.12 uIU/mL (0.36-3.74)
[2022-12-11 21:54] LABS: Hemoglobin A1C 5.1 % (<5.7)
== END 2022-12-11 15:29 | disposition home or self-care (01) ==
LOC: NCHCN 15:28
PROVIDERS: PCP Nurse Practitioner Family; Visit Provider Nurse Practitioner Family
DX: Z00.00 Encounter for general adult medical examination without abnormal findings (principal); Z13.1 Encounter for screening for diabetes mellitus; Z13.29 Encounter for screening for other suspected endocrine disorder
CPT/HCPCS: 83036; 84443

== ENCOUNTER 2022-12-16 07:40 | Day surgery (SDC) | payer OTHER, SELFPAY ==
[2022-12-16] VITALS (9 sets, daily range): BP systolic 111–133; BP diastolic 57–81; PULSE 65–102; RESP 13–18; TEMP 36.2–36.7; O2SAT 99–100; BMI 26.2
--- NOTE | 2022-12-16 08:07 | W.ANESPRE ---
General Info Date of Service Date Performed: 12/16/22 Height: 5 ft 5 in Weight: 71.3 kg Body Mass Index (BMI): 26.2 Surgical Procedure: Operation Date: 12/16/22 08:40 Proposed Procedure Side Surgeon p Dilation & Curettage with Hysteroscopy, Novasure Ablation Nita Payne MD Meds Allergies and Home Medications Allergies Allergy/AdvReac Type Severity Reaction Status Date / Time latex Allergy Skin Rash Verified 12/16/22 07:54 clarithromycin AdvReac Intermediate rash / Unverified 12/16/22 07:54 puffiness in face promethazine AdvReac Intermediate rash / Unverified 12/16/22 07:54 puffiness in face Home Medication Medication Instructions Recorded amitriptyline 10 mg tablet 25 mg PO HS 11/03/22 pantoprazole 40 mg tablet,delayed 40 mg PO HS 11/03/22 release medroxyprogesterone 10 mg tablet 20 mg PO TID #60 tabs 11/18/22 Current Visit Medications: Current Medications Generic Name Dose Route Start Last Admin Trade Name Markq PRN Reason Stop Dose Admin Ringer's Solution 1,000 mls @ 125 mls/hr 12/16/22 06:00 IV 01/14/23 23:59 INFUSION YOLI IV Miscellaneous Supplies 1 each 12/16/22 06:00 Iv Access IV 01/14/23 23:59 DIRECTED YOLI Sodium Chloride 0 ml 12/16/22 06:00 Normal Saline Flush 10 Ml Syr IV 01/14/23 23:59 PRN PRN Sodium Chloride 0 ml 12/16/22 06:00 Normal Saline 10 Ml Vial IJ 01/14/23 23:59 DIRECTED PRN Sterile Water 0 ml 12/16/22 06:00 Water,Injection,Sterile 10 Ml Vial IJ 01/14/23 23:59 DIRECTED PRN PFSH Active Problems Active Problems: Problem Status Onset Code Postmenopausal bleeding N95.0 Medical History Medical History Dysphonia Intermittent palpitations Laryngopharyngeal reflux (LPR) Surgical History Surgical History (Updated 12/16/22 @ 07:53 by Leatha Moore) H/O tubal ligation History of shoulder surgery Tobacco Smoking/Tobacco Use Status: Current every day Tobacco Type: cigarettes Alcohol Alcohol Intake: current Alcohol intake frequency: holidays/special occasions only Substance Use Substance use: Never Substance use type: does not use Prental History History 2 Para 2 Hx # Term Pregnancies 2 Multiple births Hx # Pregnancies Ectopic pregnancies AB induced Hx Number of Living Children 2 AB spontaneous Vital Signs and Lab Results Vital Signs Most Recent Vital Signs in EMR: Most Recent Vital Signs Temp Pulse Resp BP Pulse Ox 36.2 C L 102 H 18 111/58 L 100 12/16/22 07:45 12/16/22 07:45 12/16/22 07:45 12/16/22 07:45 12/16/22 07:45 Lab Results Blood Type / Crossmatch: No Data to Display Complete Blood Count: No Data to Display Complete Metabolic Panel: Hemoglobin A1c 5.1 % (<5.7) 12/11/22 15:00 Liver Function Panel: No Data to Display Coagulation Panel: No Data to Display Cardiac Panel: No Data to Display Arterial Blood Gas: No Data to Display Venous Blood Gas: No Data to Display Pancreas Panel: No Data to Display Thyroid Panel: Thyroid Stimulating Hormone (TSH) 1.12 uIU/mL (0.36-3.74) 12/11/22 15:00 Infectious Disease: No Data to Display Blood Cultures: No Data to Display Toxicology Panel: No Data to Display Panel: No Data to Display Imaging and Studies Imaging and Studies Study information below may be from another EMR and interpreted by another provider. Please see original notes in EMR for more complete details. EKG Summary: 12/20: sinus, LAE Stress Test Summary: 06/19: 11 METS, 1 mm upsloping depressions in the lateral leads during recovery which dissipated after 2 min. Evans score of 4, intermediate probability of angiographic CAD. Anesthesia Assessment and Plan Anesthesia History Personal History: No History of Anesthesia Complications Family History: No Family History of Anesthesia Complications Exercise Tolerance Exercise Tolerance: Metabolic Equivalents>4 Cardiac & Pulmonary Exam Cardiac Exam: Normal S1/S2 Heart Sounds Pulmonary Exam: Clear Bilateral Breath Sounds Implantable Cardiac Device Does patient have a Pacemaker or an ICD?: No Airway Exam Known Difficult Airway: No Mallampati Class: 3 Mouth Opening: Narrow (< 3cm) Thyromental Distance: Less than 3 cm Neck Range of Motion: Full ROM Neck Circumference: Normal Teeth Condition: Normal Dentition and Removable Dentures/Plates Upper ASA Classification ASA Score: ASA 2 Emergency Case?: No NPO Status NPO Status: NPO Clears >2 hours, Solids >8 hours Status Status: Not Relevant due to Medical History Anesthesia Plan Resuscitation Status: Full Code Anesthesia Technique: General Anesthesia Airway Planned: Endotracheal Tube Monitors Used: Standard Monitors Preoperative Comments:: 47 yo female for d/c, hysteroscopy. Sig PMHx: palpitations, Laryngopharyngeal reflux (pantoprazole, sleeps elevated), smoker, anemia, migraine, depression. Preop note from PCP due to heart palpitations was to reduce smoking as caffeine over the weekend and follow up on Wednesday. she did this with good effect and decrease in symptoms.
[2022-12-16] MEDS: Lactated Ringers 1,000 ML 125 ML IV (08:18)
--- NOTE | 2022-12-16 10:35 | ENDOMET_PTH ---
PATIENT: Loyda Milian LOC: [facility] U#:[id number] AGE/SX: 47/F ROOM: RE12/16/[address]: Nita Payne MD : [id number] BED: DIS: 12/16/2022 SPEC #: [id number] RECD: 12/16/22 12:57 STATUS: ASTON REQ #: [id number] JN: 12/16/22 10:[address]: Nita Payne DEPT: Surgical Specimen RECD BY: Skylar Gilmore ENTERED: 12/16/22 12:58 SP TYPE: Endomet OTHR DR: Gladys Villaseñor Tissues: 1 - ENDOMETRIUM BX/HERMAN Procedures: GROSS AND MICRO LEVEL 4 Comments: [id number]
[2022-12-16] MEDS: Silver Nitrate Stick 1 EACH (10:56)
--- NOTE | 2022-12-16 11:28 | ROE_ITS ---
Date of service: 12/16/22 Time of Service: 10:30 Operative Note Operative Note DATE OF PROCEDURE: 12/16/22 PRE-OP DIAGNOSIS: Abnormal Uterine bleeding POST-OP DIAGNOSIS: same PROCEDURE: Hysteroscopy, D&C, endometrial ablation with novasure SURGEON: Nita Payne Refer to Anesthesia Record PATHOLOGY: other (Endometrial curettings) COMPLICATIONS: None Patient was transported to: PACU Patient's condition: stable Indications: Daily bleeding for almost 2 months despite progesterone treatment. Benign endometrial biopsy. Findings: Normal appearing external genitalia, vagina and cervix. Endometrium denuded with a very small lump noted on the upper right side. Post-ablation the endometrial was fairly well charred with a small amount of pin k tissue in the right cornual area. Procedure Description: After informed consent was signed the patient was taken to the operating room and given General room air anesthesia.? SCDs were placed on her legs.? She was prepped and draped in the dorsal lithotomy position in the [facility].? A time out was performed. Her bladder was drained of urine if not done just prior to arrival to the room.? Exam under anesthesia revealed normal external genitalia, vagina normal for age and a normal sized uterus. A speculum was placed into the vagina to reveal the cervix.? The anterior lip of the cervix was grasped with a single tooth tenaculum.? The cervical length was measured with a large dilator. The cervix was then dilated until a uterine sound could be inserted to measure the total length. The?cavity length was then calculated at 6cm. The hysteroscope was assembled and the uterine cavity was visualized. No obvious abnormalities were noted. A sharp curettage was performed. The novasure device was opened and the cavity length set. It was inserted into the endometrial cavity and the width was measured at 4.7cm. First attempts at the cavity assessment repeatedly failed, though with no evidence of air escaping from around the cervical os. After checking connections and the seal a second Novasure device was opened. The cavity assessment was performed and passed. The device was then deployed for the appropriate amount of time. The device was removed and the wand inspected and appeared thoroughly charred. The hysteroscope was again inserted into the endometrial cavity and there was only a small area of pink in the right uterine cornua. The device was removed from the endometrial cavity. The tenaculum was removed from the cervix with good hemostasis with silver nitrate.? The speculum was removed from the vagina. The patient was placed back into the supine position.? She was moved to the stretcher and taken to the recovery room in stable condition.
--- NOTE | 2022-12-16 11:33 | W.ANESPOSTOP ---
Postoperative Evaluation Date, Time and Location Date Performed: 12/16/22 Time Performed: 11:33 Patient Location: PACU Vital Signs Most Recent Imported Vital Signs: Most Recent Vital Signs Temp Pulse Resp BP Pulse Ox 36.5 C 84 13 111/81 99 12/16/22 11:25 12/16/22 11:25 12/16/22 11:25 12/16/22 11:25 12/16/22 11:25 Pain Score Most Recent Pain Score: Most Recent Pain Score Pain Level 2 12/16/22 11:25 Assessment Mental Status: Arousable with meaningful communication Airway and Respiratory Function: Patent airway with normal (patient baseline) respiratory exam Cardiovascular Function: Hemodynamically Stable Hydration Status: Adequately Hydrated Nausea & Vomiting: No Nausea or Vomiting Pain: Pt. Denies Any Pain Peripheral Nerve Block: Patient did not receive a nerve block
[2022-12-16] MEDS: HYDROmorphone 2 MG/ML SYR IVP ×3 (11:39→11:59)
[2022-12-16] MEDS: Normal Saline 10 ML VIAL IJ (11:39)
--- NOTE | 2022-12-16 11:50 | W.PM.DSUDISC ---
Date of service: 12/16/22 Time of Service: 11:50 Discharge Plan Disposition Patient Disposition: Home Condition: Good Discharge Details Attending Provider: Nita Payne Primary Care Provider: Gladys Villaseñor Home Meds and New Rx's Prescriptions: No Action pantoprazole 40 mg tablet,delayed release (DR/EC) 40 mg PO HS medroxyprogesterone 10 mg tablet 20 mg PO TID Qty: 60 0RF Rx Instructions: Slowly decrease by one pill each day, waiting 2-3 days at the new dose and only decreasing further if no increased bleeding. amitriptyline 10 mg tablet 25 mg PO HS Discharge Instructions Activity:: Activity as Tolerated Diet:: As Tolerated Discharge Orders Discharge Orders: Discharge Order (Routine); Ordered 12/16/22 Ordered By: Nita Payne
== END 2022-12-16 13:30 | disposition home or self-care (01) ==
PROVIDERS: PCP Nurse Practitioner Family; Visit Provider Obstetrics & Gynecology
PROC: 0UDB8ZZ Extraction of Endometrium, Via Natural or Artificial Opening Endoscopic (ICD-10-PCS; CPT 58558; principal; 2022-12-16 08:30)
DX: N93.8 Other specified abnormal uterine and vaginal bleeding (principal)
CPT/HCPCS: 58563; 88305; J1100; J1170; J1885; J2001; J2405; J2704

== ENCOUNTER 2023-03-23 12:19 | Outpatient (REF) | payer OTHER, SELFPAY ==
[2023-03-23 16:08] LABS: Abs Immature Grans 0.02 10^3/uL (0.0-0.06); Absolute Basophil Count 0.04 10^3/uL (0.0-0.2); Absolute Eosinophil Count 0.07 10^3/uL (0.0-0.7); Absolute Lymphocyte Count 1.94 10^3/uL (1.2-3.4); Absolute Monocyte Count 0.42 10^3/uL (0.1-0.8); Absolute Neutrophil Count 5.44 10^3/uL (1.2-6.7); Basophils % 0.5; Eosinophils % 0.9; HCT 44.9 % (36.0-46.0); Immature Grans % 0.3; Lymphocytes % 24.5; MCH 30.2 pg (27.0-33.0); MCHC 33.4 % (32.0-36.0); MCV 90 fL (80-95); MPV 11.4 fL (8.0-11.0); Monocytes % 5.3; Neutrophils % 68.5; Platelet Count 211 10^3/uL (130-400); RBC 4.97 10^6/uL (3.93-5.22); RDW 13.3 % (11.7-14.6); RDW-SD 44.5 fL; WBC 7.93 10^3/uL (4.4-10.8)
[2023-03-23 16:13] LABS: Bilirubin Negative (Negative); Blood Trace-intact (Negative); Clarity Clear (Clear); Glucose Negative (Negative); Ketones Negative (Negative); Leukocyte Esterase Negative (Negative); Nitrite Negative (Negative); Urobilinogen 0.2 mg/dL (Up to 0.2)
[2023-03-23 16:21] LABS: RBC 0-2 HPF (0-2); WBC Negative HPF (0-5)
[2023-03-23 16:22] LABS: Bacteria Negative HPF (Negative); C & S Indicated? No; Crystals Negative HPF (Negative); Epithelial Cells Rare HPF (Negative); Mucus Trace (Negative)
[2023-03-23 16:31] LABS: ALT 18 U/L (14-59); AST 16 U/L (15-37); Albumin 3.9 g/dL (3.4-5.0); Alkaline Phosphatase 93 U/L (46-116); Anion Gap 8.7 mmol/L (3-11); BUN 10 mg/dL (7-18); Bilirubin, Total 0.2 mg/dL (0.2-1.0); CO2 26.3 mmol/L (21.0-32.0); CREATININE 0.7 mg/dL (0.55-1.02); Calcium 9.8 mg/dL (8.5-10.1); Chloride 105 mmol/L (98-107); Estimated GFR 107.95 (mL/min/1.73m2); Glucose 89 mg/dL (74-106); Potassium 4.1 mmol/L (3.5-5.1); Sodium 140 mmol/L (136-145); Total Protein 7.4 g/dL (6.4-8.2)
== END 2023-03-23 12:20 | disposition home or self-care (01) ==
LOC: NCHCN 12:19
PROVIDERS: PCP Nurse Practitioner Family; Visit Provider Physician Assistant Medical
DX: R10.9 Unspecified abdominal pain (principal)
CPT/HCPCS: 80053; 81003; 81015; 85025

== ENCOUNTER → 2023-06-04 14:57 | Outpatient (CLI) | payer OTHER, SELFPAY ==
--- NOTE | 2023-06-04 14:29 | DI.RAD_ITS ---
Exam(s) XR LUMBAR SPINE COMPLETE EXAM: XR LUMBAR SPINE COMPLETE CLINICAL HISTORY: Low back pain, M54.50. TECHNIQUE: 2D digital imaging was performed. Five views. COMPARISON: US US PELVIS TRANSVAGINAL from 11/02/2022 FINDINGS: BONES: No fracture or destructive lesion. Vertebral body heights are maintained. Minimal endplate os teophytes. Minimal facet hypertrophy identified. At L5-S1 DISKS: Intervertebral disc spaces are maintained. ALIGNMENT: Lumbar spinal alignment is within normal limits. No spondylolysis or spondylolisthesis. SOFT TISSUE: Calcified uterine fibroid. IMPRESSION: Minimal degenerative changes. DATA REPOSITORY: RADIATION DOSE DELIVERED:
== END ==
PROVIDERS: PCP Nurse Practitioner Family; Visit Provider Physician Assistant Medical
DX: M54.50 Low back pain, unspecified (principal)
CPT/HCPCS: 72110

== ENCOUNTER 2024-06-02 17:27 | Outpatient (REF) | payer OTHER, SELFPAY ==
--- OUTSIDE RECORDS SUMMARY | 2024-06-02 17:29 | XMS_ITS | Encounter Summary ---
Author Organization [facility] Address [address] [place] [address] Care Team Providers Care Payment Collector Name Role Phone Jeanette Reza NP Primary Care Provider [phone] Encounter Details Date Type Department Care Team (Late st Contact Info) Description 11/25/2022 Lab Requisition [facility] Pathology & Laboratory Medicine - [facility] [address] [place] [address] Nita Payne MD [address] [place] [id number] Encounter for other general examination Social History Tobacco Use Types Packs/Day Years Used Date Smoking Tobacco: Never Assessed Comments Unknown Sex and Gender Information Value Date Recorded Sex Assigned at Not on file Legal Sex Female 18:20 EST Gender Identity Not on file Sexual Orientation Not on file documented as of this encounter Plan of Treatment Not on file documented as of this encounter Procedures Procedure Name Priority Date/Time Associated Diagnosis Comments SURGICAL PATHOLOGY Today 11/24/2022 14 :50 EDT Encounter for other general examination documented in this encounter Results * SURGICAL PATHOLOGY (11/24/2022 14:50 EDT) Note to Patient The following pathology results have been interpreted by your pathologist and may be available to you before your health provider has had the opportunity to review them. Please allow time for your provider to receive these results and explore management options, if applicable. 11/27/2022 16:11 EDT [facility] Final Diagnosis A. ENDOMETRIUM, BIOPSY: - Inactive endometrium with pseudodecidualized stroma consistent with exogenous hormone effect. - Focal stromal breakdown. 11/27/2022 16:11 [facility] Attestation By the signature below, the attending physician certifies that they have 1) personally conducted a gross and/or microscopic examination of the described specimen(s), and/or personally interpreted the results of laboratory testing of the described specimen(s), and 2) personally rendered or confirmed the above diagnosis. 11/27/2022 16:11 [facility] at 1611 Clinical History Postmenopausal bleeding 11/27/2022 16:11 [facility] Gross Description A. Received in formalin labelled with proper patient identification (initials G, K) and endometrial is an aggregate of brown soft to rubbery tissues and admixed blood clot (1.6 x 1.1 x 0.2 cm). Entirely submitted in A1. Maria Ines Walker 11/25/2022 10:38 11/27/2022 16:11 T [facility] Performing Lab [facility] 11/27/2022 16:11 [facility] Scanned Images 11/27/2022 16:11 [facility] Tissue ENTIRE ENDOMETRIUM / Unknown 11/24/2022 14:50 EDT 11/25/2022 8:27 EDT us Nita Payne MD PATHOLOGY ORDERABLES Final R esult [facility] [address] [place] [address] documented in this encounter Visit Diagnoses Diagnosis Encounter for other general examination documented in this encounter Care Teams Payment Collector Relationship Specialty Start Date End Date Jeanette Reza NP [facility] [address] [place], [place] [address] PCP - General 02/13/16 documented as of this encounter
--- OUTSIDE RECORDS SUMMARY | 2024-06-02 17:29 | XMS_ITS | Encounter Summary ---
Author Organization [facility] Address [address] [place] [address] Care Team Providers Care Case Repairer Name Role Phone Jeanette Reza NP Primary Care Provider [phone] Encounter Details Date Type Department Care Team (Late st Contact Info) Description 01/14/2021 Lab Requisition [facility] Pathology & Laboratory Medicine - [address] [id number] Outr Resulting Lab, Provider Social History Tobacco Use Types Packs/Day Years [...] Procedure Name Priority Date/Time Associated Diagnosis Comments ZZCOVID-19 TEST [facility] PCR Today 01/13/2021 11:30 EDT COVID-19 TESTING Routine 01/13/2021 11:3 0 EDT documented in this encounter Results * COVID-19 TEST [facility] PCR (01/13/2021 11:30 EDT) Swab ENTIRE NASOPHARYNX / Unknown 01/13/2021 11:30 EDT 01/14/2021 15:41 EDT us Provider Outr Resulting Lab MICROBIOLOGY - GENER AL ORDERABLES Final Result [facility] [address] [place] [address] * COVID-19 TESTING (01/13/2021 11:30 EDT) COVID-19 rt-PCR Result Negative Negative 01/15/2021 13:51 EDT [facility] Comment: This test has not been FDA cleared or approved. This test has been authorized by FDA under an EUA for use by authorized laboratories. This test has been authorized only for detection of nucleic acid from 2019-nCoV, not for any other viruses or pathogens. This test is only authorized for the duration of the declaration that circumstances exist justifying the authorization of emergency use of in vitro diagnostic tests for detection and/or diagnosis of 2019-nCoV under section 564(b)(1) of Act, 21 U.S.C ?? 360bbb-3(b) (1), unless the authorization is terminated or revoked sooner. Negative results do not preclude 2019-nCoV infection and should not be used as the sole basis for treatment or other patient management decisions. Negative results must be combined with clinical observations, patient history, and epidemiological information. This test was developed and its performance characteristics determined by [facility]. It has not been cleared or approved by the US Food and Drug Administration. FDA does not require this test to go through premarket FDA review. This test is used for clinical purposes. It should not be regarded as investigational or for research. This laboratory is certified under the Clinical Laboratory Improvement Amendments (CLIA) as qualified to perform high complexity clinical laboratory testing. This test is based on the [facility] COVID-19 Emergency Use Authorization (EUA) assay, with minor modification as defined by the FDA Performed on the [employer] 7 Pro RT-PCR System. Performing Lab [facility] 01/15/2021 13:51 EDT [facility] Swab 01/13/2021 11:3 0 EDT 01/14/2021 15:41 EDT us Provider Outr Resulting Lab MICROBIOLOGY - GENER AL ORDERABLES Final Result [facility] [address] [place] [address] documented in this encounter Visit Diagnoses Not on filedocumented in this encounter Care Teams Case Repairer Relationship Specialty Start Date End Date Jeanette Reza, BENEFITS ADMINISTRATOR [facility] [address] [place] [address] PCP - General 02/13/16 documented as of this encounter
--- OUTSIDE RECORDS SUMMARY | 2024-06-02 17:29 | XMS_ITS | Encounter Summary ---
Author Organization [facility] Address [address] [place] [address] Care Team Providers Care Windsmith Name Role Phone Jeanette Reza NP Primary Care Provider [phone] Encounter Details Date Type Department Care Team (Late st Contact Info) Description 01/11/2020 Lab Requisition [facility] Pathology & Laboratory Medicine - [address] [address] Outr Resulting Lab, Provider Social History Tobacco [...] Procedure Name Priority Date/Time Associated Diagnosis Comments FECAL BACTERIAL PATHOGENS BY PCR Routine 01/11/2020 9:00 EDT documented in this encounter Results * FECAL BACTERIAL PATHOGENS BY PCR (01/11/2020 9:00 EDT) Salmonella PCR Negative Negative 01/12/2020 11:27 EDT [facility] Shigella/Enteroin vasive E. coli Negative Negative 01/12/2020 11:27 EDT [facility] HN LAB CAMPYLOBACTER PCR Negative Negative 01/12/2020 11:27 EDT [facility] Shiga Toxin PCR Negative Negative 0 11:27 EDT [facility] Feces SPECIMEN FROM RECTUM / Unknown 01/11/2020 9:00 EDT 01/11/2020 16:38 EDT us Provider Outr Resulting Lab MICROBIOLOGY - GENER AL ORDERABLES Final Result [facility] [address] [place] [address] documented in this encounter Visit Diagnoses Not on filedocumented in this encounter Care Teams Windsmith Relationship Specialty Start Date End Date Jeanette Reza NP [facility] [address] [place] [id number] PCP - General 02/13/16 documented as of this encounter
--- OUTSIDE RECORDS SUMMARY | 2024-06-02 17:29 | XMS_ITS | Encounter Summary ---
Author Organization [facility] Address [address] [place] [address] Care Team Providers Care Mechanical Striper Name Role Phone Jeanette Reza NP Primary Care Provider [phone] Encounter Details Date Type Department Care Team (Late st Contact Info) Description 01/09/2021 Lab Requisition [facility] Pathology & Laboratory Medicine - [address] [id number] Outr Resulting Lab, Provider Social History Tobacco [...] Comments ZZCOVID-19 TEST [facility] PCR Today 01/08/2021 16:30 EDT COVID-19 TESTING Routine 01/08/2021 16:3 0 EDT documented in this encounter Results * COVID-19 TEST [facility] PCR (01/08/2021 16:30 EDT) Swab ENTIRE NASOPHARYNX / Unknown 01/08/2021 16:30 EDT 01/09/2021 15:55 EDT us Provider Outr Resulting Lab MICROBIOLOGY - GENER AL ORDERABLES Final Result [facility] [address] [place] [address] * COVID-19 TESTING (01/08/2021 16:30 EDT) COVID-19 rt-PCR Result Negative Negative 01/10/2021 15:34 EDT [facility] Comment: This test has not [...] clinical observations, patient history, and epidemiological information. Testing was performed using the ann marie SARS-CoV-2 assay ([employer] on the [place] 6800 System Performing Lab [place] [address] [facility] 01/10/2021 15:34 EDT [facility] Swab 01/08/2021 16:3 0 EDT 01/09/2021 15:55 EDT us Provider Outr Resulting Lab MICROBIOLOGY - GENER AL ORDERABLES Final Result [facility] [address] [place] [address] documented in this encounter Visit Diagnoses Not on filedocumented in this encounter Care Teams Mechanical Striper Relationship Specialty Start Date End Date Jeanette Reza NP [facility] [address] [place] [address] PCP - General 02/13/16 documented as of this encounter
--- OUTSIDE RECORDS SUMMARY | 2024-06-02 17:29 | XMS_ITS | Encounter Summary ---
Author Organization [facility] Address [address] [place] [address] Care Team Providers Care Hand Braille Transcriber Name Role Phone Jeanette Reza NP Primary Care Provider [phone] Encounter Details Date Type Department Care Team (Late st Contact Info) Description 07/11/2020 Lab Requisition [facility] [place] Pathology & Laboratory Medicine - [address] [address] Outr Resulting Lab, Provider Social History Tobacco [...] Procedure Name Priority Date/Time Associated Diagnosis Comments CHLAMYDIA/N. GONORRHOEAE AMPLIFIED NUCLEIC ACID Routine 07/10/2020 17:30 EST documented in this encounter Results * CHLAMYDIA/N. GONORRHOEAE AMPLIFIED RNA (07/10/2020 17:30 EST) Neisseria gonorrhoeae Result Negative Negative 07/12/2020 16:19 EST [facility] Chlamydia trachomatis Result Negative Negative 07/12/2020 16:19 EST [facility] Swab ENTIRE WALL OF CERVIX / Unknown 07/10/2020 17:30 EST 07/11/2020 17:18 EST us Provider Outr Resulting Lab MICROBIOLOGY - GENER AL ORDERABLES Final Result [facility] [address] [place] [address] documented in this encounter Visit Diagnoses Not on filedocumented in this encounter Care Teams Hand Braille Transcriber Relationship Specialty Start Date End Date Jeanette Reza, [facility] [address] [place], [place] [id number] PCP - General 02/13/16 documented as of this encounter
--- OUTSIDE RECORDS SUMMARY | 2024-06-02 17:29 | XMS_ITS | Encounter Summary ---
Author Organization [facility] Address [address] [place] [address] Care Team Providers Care Car Mechanic Name Role Phone Jeanette Reza NP Primary Care Provider [phone] Encounter Details Date Type Department Care Team (Late st Contact Info) Description 10/10/2021 Lab Requisition [facility] Pathology & Laboratory Medicine - [facility] [address], [place] [address] Outr Resulting Lab, Provider Social History Tobacco [...] Procedure Name Priority Date/Time Associated Diagnosis Comments MEASLES IGG AB Routine 10/10/2021 14:40 EDT RUBELLA IGG ANTIBODY Routine 10/10/2021 14:40 EDT HEPATITIS B SURFACE ANTIBODY Routine 10/10/2021 14:40 EDT VARICELLA IGG ANTIBODY Routine 10/10/2021 14:40 EDT MUMPS ANTIBODY IGG Routine 10/10/2021 14 :40 EDT documented in this encounter Results * HEPATITIS B SURFACE ANTIBODY (10/10/2021 14:40 EDT) Hep B Surface Ab, Quantitative <3.1 See Note mIU/mL 10/13/2021 11:25 EDT [facility] Comment: Reference Range for Hep B Surface Ab, Quant: Positive: >= 10.0 mIU/mL Negative: ??< 10.0 mIU/mL Patient is presumed to not be immune to infection with Hepatitis B Virus. Hep B Surface Ab, Qualitative Negative See Note 10/13/2021 11:25 EDT [facility] Comment: Reference Range for Hep B Surface Ab, Qual: Unvaccinated: ??Negative Vaccinated: ??Positive Blood VENOUS BLOOD / Unknown 10/10/2021 14:40 EDT 10/10/2021 20:56 EDT us Provider Outr Resulting Lab CHEMISTRY & BLOOD GA S ORDERABLES Final Result Performing Organization Address [facility] Co de Phone Number [facility] [address] [place] [address] * MEASLES IGG AB (10/10/2021 14:40 EDT) Measles IgG Ab Positive See Note 10/13/2021 10:59 EDT [facility] Comment:Presence of detectab le measles virus IgG antibodies. Blood VENOUS BLOOD / Unknown 10/10/2021 14:40 EDT 10/10/2021 20:56 EDT us Provider Outr Resulting Lab IMMUNOLOGY AND SEROL OGY ORDERABLES Final Result [facility] [address] [place] [address] * VARICELLA IGG ANTIBODY (10/10/2021 14:40 EDT) Varicella IgG Ab Positive See Note 10/13/2021 10:57 EDT [facility] Comment:Presence of detectab le Varicella Zoster virus IgG antibodies. Blood VENOUS BLOOD / Unknown 10/10/2021 14:40 EDT 10/10/2021 20:56 EDT us Provider Outr Resulting Lab IMMUNOLOGY AND SEROL OGY ORDERABLES Final Result Performing Organization Address City/[facility]/ZIP Co de Phone Number [facility] [address] [place] [address] * MUMPS ANTIBODY IGG (10/10/2021 14:40 EDT) Mumps Antibody IgG Positive See Note 10/13/2021 11:03 EDT [facility] Comment:Presence of detectab le mumps virus IgG antibodies. Blood VENOUS BLOOD / Unknown 10/10/2021 14:40 EDT 10/10/2021 20:56 EDT us Provider Outr Resulting Lab IMMUNOLOGY AND SEROL OGY ORDERABLES Final Result Performing Organization Address [facility] Co de Phone Number [facility] [address] [place] [address] * RUBELLA IGG ANTIBODY (10/10/2021 14:40 EDT) Rubella IgG Ab Negative See Note 10/13/2021 11:04 EDT [facility] Comment:Sample is considered negative for IgG antibodies to Rubella virus. A negative result presumes that immunity has not been acquired. If exposure to Rubella virus is suspected despite a negative finding, a second specimen should be collected and tested for Rubella IgG Ab one or two weeks later. Blood VENOUS BLOOD / Unknown 10/10/2021 14:40 EDT 10/10/2021 20:56 EDT us Provider Outr Resulting Lab CHEMISTRY & BLOOD GA S ORDERABLES Final Result Performing Organization Address City/[facility]/ZIP Co de Phone Number [facility] [address] [place] [address] documented in this encounter Visit Diagnoses Not on filedocumented in this encounter Care Teams Car Mechanic Relationship Specialty Start Date End Date Jeanette Reza NP [facility] [address] [place] [address] PCP - General 02/13/16 documented as of this encounter
--- OUTSIDE RECORDS SUMMARY | 2024-06-02 17:29 | XMS_ITS | Encounter Summary ---
Author Organization [facility] Address [address] [place] [address] Care Team Providers Care House Nurse Name Role Phone Jeanette Reza NP Primary Care Provider [phone] Encounter Details Date Type Department Care Team (Late st Contact Info) Description 10/11/2021 Lab Requisition [facility] Pathology & Laboratory Medicine - [facility] [address], [place] [address] Outr Resulting Lab, Provider Social History Tobacco [...] Procedure Name Priority Date/Time Associated Diagnosis Comments QUANTIFERON MITOGEN (PERFORMABLE) Today 10/10/2021 14:40 EDT QUANTIFERON TB2 (PERFORMABLE) Today 10/10/2021 14:40 EDT QUANTIFERON TB1 (PERFORMABLE) Today 10/10/2021 14:40 EDT QUANTIFERON NIL (PERFORMABLE) Today 10/10/2021 14:40 EDT QUANTIFERON INTERPRETATION (PERFORMABLE) Today 10/10/2021 14:40 EDT QUANTIFERON TB GOLD PLUS Routine 10/10/2021 14:40 EDT documented in this encounter Results * QUANTIFERON INTERPRETATION (PERFORMABLE) (10/10/2021 14:40 EDT) Quantiferon Interpretation Negative Negative 10/13/2021 13:37 EDT [facility] Comment:No interferon-gamma response to M. tuberculosis antigens was detected. ??Infection with M. tuberculosis is unlikely. A single negative result does not exclude infection with M. tuberculosis. ??In patients at high risk for M. tuberculosis infection, a second test should be considered. TB1 Ag minus Nil 0.00 IU/ml 10/14/19 13:37 EDT [facility] TB2 Ag minus Nil 0.01 IU/mL 10/14/19 13:37 EDT [facility] Blood VENOUS BLOOD / Unknown 10/10/2021 14:40 EDT 10/13/2021 13:07 EDT Narrative [facility] - 10/13/2021 13:37 EDT Results were obtained with the [employer] QuantiFERON-TB Gold Plus CLIA. New platform in use 02/05/2021 us Provider Outr Resulting Lab IMMUNOLOGY AND SEROL OGY ORDERABLES Final Result Performing Organization Address [facility] Co de Phone Number [facility] [address] [place] [address] * QUANTIFERON MITOGEN (PERFORMABLE) (10/10/2021 14:40 EDT) Blood VENOUS BLOOD / Unknown 10/10/2021 14:40 EDT 10/11/2021 21:59 EDT us Provider Outr Resulting Lab IMMUNOLOGY AND SEROL OGY ORDERABLES Final Result Performing Organization Address City/[facility]/ZIP Co de Phone Number [facility] [address] [place] [address] * QUANTIFERON TB2 (PERFORMABLE) (10/10/2021 14:40 EDT) Blood VENOUS BLOOD / Unknown 10/10/2021 14:40 EDT 10/11/2021 21:59 EDT us Provider Outr Resulting Lab IMMUNOLOGY AND SEROL OGY ORDERABLES Final Result Performing Organization Address City/[facility] Co de Phone Number [facility] [address] [place] [address] * QUANTIFERON TB1 (PERFORMABLE) (10/10/2021 14:40 EDT) Blood VENOUS BLOOD / Unknown 10/10/2021 14:40 EDT 10/11/2021 21:59 EDT us Provider Outr Resulting Lab IMMUNOLOGY AND SEROL OGY ORDERABLES Final Result Performing Organization Address [facility] Co de Phone Number [facility] [address] [place] [address] * QUANTIFERON NIL (PERFORMABLE) (10/10/2021 14:40 EDT) Blood VENOUS BLOOD / Unknown 10/10/2021 14:40 EDT 10/11/2021 21:59 EDT us Provider Outr Resulting Lab IMMUNOLOGY AND SEROL OGY ORDERABLES Final Result Performing Organization Address [facility] Co de Phone Number [facility] [address] [place] [address] documented in this encounter Visit Diagnoses Not on filedocumented in this encounter Care Teams House Nurse Relationship Specialty Start Date End Date Jeanette Reza NP [facility] [address] [place] [address] PCP - General 02/13/16 documented as of this encounter
--- OUTSIDE RECORDS SUMMARY | 2024-06-02 17:29 | XMS_ITS | Encounter Summary ---
Author Organization [facility] Address [address] [place] [address] Care Team Providers Care Proposal Manager Name Role Phone Jeanette Reza NP Primary Care Provider [phone] Encounter Details Date Type Department Care Team (Late st Contact Info) Description 12/16/2022 Lab Requisition [facility] Pathology & Laboratory Medicine - [facility] [address] [place] [address] Nita Payne MD [address] [place] [phone] Encounter for other general examination Social [...] Date/Time Associated Diagnosis Comments SURGICAL PATHOLOGY Today 12/16/2022 10 :35 EDT Encounter for other general examination documented in this encounter Results * SURGICAL PATHOLOGY (12/16/2022 10:35 EDT) Note to Patient The following pathology results have been interpreted by your pathologist and may be available to you before your health provider has had the opportunity to review them. Please allow time for your provider to receive these results and explore management options, if applicable. 12/21/2022 15:07 EDT [facility] Final Diagnosis A. ENDOMETRIUM, CURETTAGE: - Features suggestive of endometrial polyp. - Fragments and strips of inactive endometrium. 12/21/2022 15:07 [facility] Attestation By the signature below, the attending physician certifies that they have 1) personally conducted a gross and/or microscopic examination of the described specimen(s), and/or personally interpreted the results of laboratory testing of the described specimen(s), and 2) personally rendered or confirmed the above diagnosis. 12/21/2022 15:07 [facility] at 1507 Clinical History Abnormal uterine bleeding 12/21/2022 15:07 [facility] Gross Description A. Received in formalin labelled with proper patient identification (initials G, K) and endometrial curettings is an aggregate of mucus, clotted blood in almaguer-pink soft tissue fragments which measure 0.4 x 0.4 x 0.3 cm and is submitted in toto in A1. CINDY FRITZ(ASCP) 12/17/2022 12:11 12/21/2022 15:07 [facility] Performing Lab [facility] 12/21/2022 15:07 [facility] Scanned Images 12/21/2022 15:07 [facility] Tissue ENTIRE ENDOMETRIUM / Unknown 12/16/2022 10:35 EDT 12/16/2022 17:46 EDT us Nita Payne MD PATHOLOGY ORDERABLES Final R esult [facility] [address] [place] [address] documented in this encounter Visit Diagnoses Diagnosis Encounter for other general examination documented in this encounter Care Teams Proposal Manager Relationship Specialty Start Date End Date Jeanette Reza NP [facility] [address] [place] [address] PCP - General 02/13/16 documented as of this encounter
--- OUTSIDE RECORDS SUMMARY | 2024-06-02 17:29 | XMS_ITS | Encounter Summary ---
Author Organization [facility] Address [address] [place] [address] Care Team Providers Care Flight Operations Dispatch Clerk Name Role Phone Jeanette Reza NP Primary Care Provider [phone] Encounter Details Date Type Department Care Team (Late st Contact Info) Description 07/15/2020 Lab Requisition [facility] Pathology & Laboratory Medicine - [facility] [address] [place] [address] Tristen Briseno, MIKE [address] [place] [address] Encounter for other general examination Social History [...] Procedure Name Priority Date/Time Associated Diagnosis Comments PAP TEST Today 07/10/2020 17:15 EST Encounter for other general examination HPV DNA DETECTION WITH GENOTYPING, PCR Today 07/10/2020 17:15 EST Encounter for other general examination documented in this encounter Results * HUMAN PAPILLOMAVIRUS (HPV) DETECTION-HIGH RISK TYPES (07/10/2020 17:15 EST) HPV other High Risk types, PCR Negative Negative 07/25/2020 7:45 EST [facility] Comment:No E6 or E7 mRNA is detected from HPV types 16,18,31,33,35,39,45,51,52,56,58,59,66, and 68 by pitch worker mediated amplification. Papanicolaou smear specimen (specimen) CERVIX UTERI STRUCTURE / Unknown 07/10/2020 17:15 EST 07/19/2020 13:04 EST us Tristen Briseno PA-C MICROBIOLOGY - GENERAL O RDERABLES Final Result [facility] [address] [place] [address] * PAP TEST (07/10/2020 17:15 EST) Specimens A. Cervix and/or Endocervix , ThinPrep Imaging System with Manual Evaluation 07/25/2020 7:45 [facility] Specimen Adequacy Satisfactory for Evaluation - transformation zone component present 07/25/2020 7:45 [facility] General Categorization Negative for intraepithelial lesion or malignancy 07/25/2020 7:45 [facility] Attestation . 07/25/2020 7:45 [facility] at 0745 Clinical History See below 07/25/19 7:45 [facility] HPV The result for the Human Papillomavirus (HPV) Detection-High Risk Types is Negative. No E6 or E7 mRNA is detected from HPV types 16,18,31,33,35,39 ,45,51,52,56,58,5 9,66, and 68 by pitch worker mediated amplification.Mariama ting was performed on specimen [id number] and was resulted on 07/25/2020 0710 EST by [place], LAB INSTRUMENT RESULTS IN 07/25/2020 7:45 [facility] Performing Lab [facility] 07/25/2020 7:45 [facility] Scanned Images 07/25/2020 7:45 [facility] Papanicolaou smear specimen (specimen) CERVIX UTERI STRUCTURE / Unknown 07/10/2020 17:15 EST 07/15/2020 15:11 EST us Tristen Briseno PA-C PATHOLOGY ORDERABLES Fin al Result [facility] [address] [place] [address] documented in this encounter Visit Diagnoses Diagnosis Encounter for other general examination documented in this encounter Care Teams Flight Operations Dispatch Clerk Relationship Specialty Start Date End Date Jeanette Reza NP [facility] [address] [place] [address] PCP - General 02/13/16 documented as of this encounter
--- OUTSIDE RECORDS SUMMARY | 2024-06-02 17:29 | XMS_ITS | Referral Summary ---
Author Organization [facility] Address [address] [place] [address] Care Team Providers Care Machine Sweeper Brush Maker Name Role Phone Jeanette Reza CELL REPAIRER Primary Care Provider [phone] Social History Tobacco Use Types Packs/Day Years Used Date Smoking Tobacco: Never Assessed Comments Unknown Sex and Gender Information Value Date Recorded Sex Assigned at Not on file Legal Sex Female 18:20 EST Gender Identity Not on file Sexual Orientation Not on file Plan of Treatment Not on file Insurance [employer] Care Teams Machine Sweeper Brush Maker Relationship Specialty Start Date End Date Jeanette Reza CELL REPAIRER [facility] [address] [place] [address] PCP - General 02/13/16
--- OUTSIDE RECORDS SUMMARY | 2024-06-02 17:29 | XMS_ITS | Encounter Summary ---
Author Organization [facility] Address [address] [place] [address] Care Team Providers Care Supervisor Plating And Point Assembly Name Role Phone Jeanette Reza NP Primary Care Provider [phone] Encounter Details Date Type Department Care Team (Late st Contact Info) Description 03/05/2021 Lab Requisition [facility] Pathology & Laboratory Medicine - [facility] [address] [place], [place] [address] Outr Resulting Lab, Provider Social History Tobacco [...] Procedure Name Priority Date/Time Associated Diagnosis Comments GIARDIA AND CRYPTOSPORIDIUM ANTIGENS Routine 03/04/2021 7:50 EDT OVA/PARASITE EXAM Routine 03/04/2021 7:5 0 EDT documented in this encounter Results * GIARDIA AND CRYPTOSPORIDIUM ANTIGENS (03/04/2021 7:50 EDT) Giardia and Cryptosporidium Cryptosporidium Antigen Neg and Giardia Antigen Neg Cryptosporidium Antigen Neg and Giardia Antigen Neg 9:30 EDT [facility] Feces SPECIMEN FROM RECTUM / Unknown Stool Collect / Unknown 03/04/2021 7:50 EDT 03/05/2021 18:26 EDT us Provider Outr Resulting Lab MICROBIOLOGY - GENER AL ORDERABLES Final Result Performing Organization Address [facility] Co de Phone Number [facility] [address] [place] [address] * OVA/PARASITE EXAM (03/04/2021 7:50 EDT) Parasite No ova and parasites seen. 03/06/2021 12:52 EDT [facility] Feces SPECIMEN FROM RECTUM / Unknown Stool Collect / Unknown 03/04/2021 7:50 EDT 03/05/2021 18:26 EDT Narrative [facility] - 03/06/2021 12:52 EDT (If Cryptosporidium, Cyclospora, or Microsporidium are suspected, specific tests must be requested.) Single negative specimen does not rule out the possibility of a parasitic infection. us Provider Outr Resulting Lab MICROBIOLOGY - GENER AL ORDERABLES Final Result Performing Organization Address [facility] Co de Phone Number [facility] [address] [place] [address] documented in this encounter Visit Diagnoses Not on filedocumented in this encounter Care Teams Supervisor Plating And Point Assembly Relationship Specialty Start Date End Date Jeanette Reza NP [facility] [address] [place] [address] PCP - General 02/13/16 documented as of this encounter
--- OUTSIDE RECORDS SUMMARY | 2024-06-02 17:29 | XMS_ITS | Encounter Summary ---
Author Organization [facility] Address [address] [place] [address] Care Team Providers Care Principal Network Engineer Name Role Phone Jeanette Reza NP Primary Care Provider [phone] Encounter Details Date Type Department Care Team (Late st Contact Info) Description 06/12/2020 Lab Requisition [facility] Pathology & Laboratory Medicine - [address] [address] Outr Resulting Lab, Provider Social History Tobacco [...] Comments ZZCOVID-19 TEST [facility] PCR Today 06/12/2020 13:45 EST COVID-19 TESTING Routine 06/12/2020 13:4 5 EST documented in this encounter Results * COVID-19 TEST [facility] PCR (06/12/2020 13:45 EST) Swab ENTIRE NASOPHARYNX / Unknown 06/12/2020 13:45 EST 06/12/2020 20:46 EST us Provider Outr Resulting Lab MICROBIOLOGY - GENER AL ORDERABLES Final Result [facility] [address] [place] [address] * COVID-19 TESTING (06/12/2020 13:45 EST) COVID-19 rt-PCR Result Negative Negative 06/13/2020 16:43 EST [facility] Comment: Negative results do not preclude 2019-nCoV infection and should not be used as the sole basis for treatment or other patient management decisions. Negative results must be combined with clinical observations, patient history, and epidemiological information. This test was developed and its performance characteristics determined by [facility]. It has not been cleared or approved [...] testing. This test is based on the [facility] COVID-19 Emergency Use Authorization (EUA) assay, with minor modification as defined by the FDA Performed on the [employer] Flex. Performing Lab [facility] 06/13/2020 16:43 EST [facility] Swab 06/12/2020 13:4 5 EST 06/12/2020 20:46 EST us Provider Outr Resulting Lab MICROBIOLOGY - GENER AL ORDERABLES Final Result [facility] [address] [place] [address] documented in this encounter Visit Diagnoses Not on filedocumented in this encounter Care Teams Principal Network Engineer Relationship Specialty Start Date End Date Jeanette Reza NP [facility] [address] [place] [address] PCP - General 02/13/16 documented as of this encounter
--- OUTSIDE RECORDS SUMMARY | 2024-06-02 17:29 | XMS_ITS | Encounter Summary ---
Author Organization [facility] Address [address] [place] [address] Care Team Providers Care Scientific Diver Name Role Phone Jeanette Reza NP Primary Care Provider [phone] Encounter Details Date Type Department Care Team (Late st Contact Info) Description 07/09/2021 Lab Requisition [facility] Pathology & Laboratory Medicine - [facility] [address] [place] [address] Outr Resulting Lab, Provider Social History Tobacco [...] Priority Date/Time Associated Diagnosis Comments ZZCOVID-19 TEST [facility] PCR Today 07/08/2021 16:30 EST COVID-19 TESTING Routine 07/08/2021 16:3 0 EST documented in this encounter Results * COVID-19 TEST [facility] PCR (07/08/2021 16:30 EST) Swab 07/08/2021 16:3 0 EST 07/09/2021 20:20 EST us Provider Outr Resulting Lab MICROBIOLOGY - GENER AL ORDERABLES Final Result [facility] [address] [place] [address] * COVID-19 TESTING (07/08/2021 16:30 EST) COVID-19 rt-PCR Result Negative Negative 07/10/2021 13:01 EST [facility] Comment: This test has not [...] using the ann marie SARS-CoV-2 assay ([employer] on the [place] 6800 System Performing Lab [place] [address] [facility] 07/10/2021 13:01 EST [facility] Swab 07/08/2021 16:3 0 EST 07/09/2021 20:20 EST us Provider Outr Resulting Lab MICROBIOLOGY - GENER AL ORDERABLES Final Result [facility] [address] [place] [address] documented in this encounter Visit Diagnoses Not on filedocumented in this encounter Care Teams Scientific Diver Relationship Specialty Start Date End Date Jeanette Reza NP [facility] [address] [place], [place] [address] PCP - General 02/13/16 documented as of this encounter
--- OUTSIDE RECORDS SUMMARY | 2024-06-02 17:29 | XMS_ITS | Encounter Summary ---
Author Organization [facility] Address [address] [place] [address] Care Team Providers Care Snowsport Instructor Name Role Phone Jeanette Reza NP Primary Care Provider [phone] Encounter Details Date Type Department Care Team (Late st Contact Info) Description 01/11/2020 Lab Requisition [facility] Pathology & Laboratory Medicine - [address] [address] Outr Resulting Lab, Provider Social History Tobacco [...] Procedure Name Priority Date/Time Associated Diagnosis Comments H. PYLORI ANTIGEN Routine 01/11/2020 9:00 EDT documented in this encounter Results * H. PYLORI ANTIGEN (01/11/2020 9:00 EDT) H. Pylori Negative Negative 01/16/2020 14:21 EDT [facility] Feces SPECIMEN FROM RECTUM / Unknown 01/11/2020 9:00 EDT 01/11/2020 17:18 EDT Narrative [facility] - 01/16/2020 14:21 EDT Results were obtained with the [employer] [place] HpSA Plus MAGDA. us Provider Outr Resulting Lab MICROBIOLOGY - GENER AL ORDERABLES Final Result [facility] [address] [place] [address] documented in this encounter Visit Diagnoses Not on filedocumented in this encounter Care Teams Snowsport Instructor Relationship Specialty Start Date End Date Jeanette Reza, ARASH [facility] [address] [place], [place] [id number] PCP - General 02/13/16 documented as of this encounter
--- OUTSIDE RECORDS SUMMARY | 2024-06-02 17:29 | XMS_ITS | Encounter Summary ---
Author Organization [facility] Address [address] [place] [address] Care Team Providers Care Mobile Home Mechanic Name Role Phone Jeanette Reza NP Primary Care Provider [phone] Encounter Details Date Type Department Care Team (Late st Contact Info) Description 03/05/2021 Lab Requisition [facility] Pathology & Laboratory Medicine - [address] [address] Outr Resulting Lab, Provider Social History Tobacco [...] Comments FECAL BACTERIAL PATHOGENS BY PCR Routine 03/04/2021 7:50 EDT documented in this encounter Results * FECAL BACTERIAL PATHOGENS BY PCR (03/04/2021 7:50 EDT) Salmonella PCR Negative Negative 03/05/2021 23:37 EDT [facility] Shigella/Enteroin vasive E. coli Negative Negative 03/05/2021 23:37 EDT [facility] HN LAB CAMPYLOBACTER PCR Negative Negative 03/05/2021 23:37 EDT [facility] Shiga Toxin PCR Negative Negative 23:37 EDT [facility] Feces SPECIMEN FROM RECTUM / Unknown Stool Collect / Unknown 03/04/2021 7:50 EDT 03/05/2021 18:26 EDT us Provider Outr Resulting Lab MICROBIOLOGY - GENER AL ORDERABLES Final Result [facility] [address] [place] [address] documented in this encounter Visit Diagnoses Not on filedocumented in this encounter Care Teams Mobile Home Mechanic Relationship Specialty Start Date End Date Jeanette Reza NP [facility] [address] [place] [address] PCP - General 02/13/16 documented as of this encounter
--- OUTSIDE RECORDS SUMMARY | 2024-06-02 17:29 | XMS_ITS | Clinical Summary ---
Author Organization [facility] Address [address] [place] [address] Care Team Providers Care Transmission Tester Name Role Phone Jeanette Reza ASSISTANCE SPECIALIST Primary Care Provider [phone] Social History Tobacco Use Types Packs/Day Years Used Date Smoking Tobacco: Never Assessed Comments Unknown Sex and Gender Information Value Date Recorded Sex Assigned at Not on file Legal Sex Female 18:20 EST Gender Identity Not on file Sexual Orientation Not on file Plan of Treatment Health Maintenance Due Date Last Done Comments Hepatitis C Screen 1975 Hepatitis B Vaccine (1 of 3 - 19+ 3-dose series) 10/19 COVID-19 Vaccine (2023- season) 2024 Insurance [employer] Care Teams Transmission Tester Relationship Specialty Start Date End Date Jeanette Reza NP [facility] [address] [place] [address] PCP - General 02/13/16
--- OUTSIDE RECORDS SUMMARY | 2024-06-02 17:30 | XMS_ITS | Encounter Summary ---
Author Organization [facility] [place] [address] Care Team Providers Care Power House Control Room Operator Name Role Phone Tristen Briseno Primary Care Provider [phone] Reason for Visit * (Routine) - Closed Specialty Diagnoses / Procedures Referred By Anthony le Referred To Contact Radiology Diagnoses Breast nodule Procedures Request for 2nd read Mammo Tristen Briseno PA [address] [place] [address] Referral ID Status Reason Start Date Expiration Date Visits Re quested Visits Authorized [id number] Closed 04/02/2021 04/02/2022 1 1 Encounter Details Date Type Department Care Team (Late st Contact Info) Description 04/02/2021 2:05 PM EDT Ancillary Procedure Radiology Library at [facility] [place] [address] Tristen Briseno PA [address] [place], [place] [id number] Breast nodule Social History Tobacco Use Types Packs/Day Years Used Date Smoking Tobacco: Every Day Comments:smokes less than 1/ 2 pack Alcohol Use Standard Drinks/Week Comments No 0 (1 standard drink = 0.6 oz pur e alcohol) Sex and Gender Information Value Date Recorded Sex Assigned at Female 04/08/2021 11:52 AM EST Gender Identity Not on file Sexual Orientation Not on file documented as of this encounter Plan of Treatment Upcoming Encounters Date Type Department Care Team (Late st Contact Info) Description 08/15/2024 1:30 PM EDT Appointment Mammography/[place] [address] Tristen Briseno PA [address] [place] [address] documented as of this encounter Procedures Procedure Name Priority Date/Time Associated Diagnosis Comments REQUEST FOR 2ND READ MAMMO Routine 04/02/2021 1:49 PM EDT Breast nodule documented in this encounter Results * Request for 2nd read Mammo (04/02/2021 1:49 PM EDT) Anatomical Region Laterality Modality SO Impressions 04/02/2021 3:13 PM EDT Right breast: No mammographic evidence of malignancy. Left breast: 1.3 cm well-circumscribed mass at the 2:00 radian, 5 cm from the nipple corresponding to a well-circumscribed homogeneous hypoechoic parallel oval mass with macrolobulation and posterior enhancement on ultrasound. This mass was likely present in 2017. Advise redirected ultrasound to confirm sonographically benign features. RECOMMENDATION: As ultrasound is back strip machine operator dependent, recommend repeat targeted ultrasound of the left breast prior to further intervention. Our facility will coordinate this follow-up with the patient. BI-RADS Category 0: Incomplete-Need Additional Imaging Evaluation and/or Prior Mammograms for Comparison Please note: The interpretation of the [facility] Breast Imaging Radiologist subspecialist may differ from the original radiologists interpretation. This is usually not due to a deficiency of the original interpreting radiologist, rather due to the greater skill level afforded by sub-specialization in the field and/or reasonable variations in interpretations. If you have a concern regarding the D-H interpretation you may contact the [facility] Breast Illuminator Office at . I have personally reviewed the image(s) and the resident's interpretation and agree with the findings, Maria Ines Mirza MD at 04/02/2021 3:13 PM Thank you for letting us participate in the care of this patient. ??If you are a health care provider and have any questions regarding this report, please contact the number below. ??For patients who have questions please contact the health assurance services manager health care that requested your imaging first. ? Electronically signed by: Maria Ines Mirza MD, [facility] ([phone]), at 04/02/2021 3:13 PM Narrative 04/02/2021 3:13 PM EDT INTERPRETATION OF OUTSIDE BREAST IMAGING I have been asked to consult on this patient by Dr. Briseno because he/she believes a review of this study may change or alter the care of this patient. STUDIES FROM: [facility] DATES: 03/20/2021 and 03/27/2021 TYPE OF EXAM: Mammogram and left ultrasound CLINICAL HISTORY: Left breast oval nodule 2 o'clock;CAT 4; Pt [place] [facility] Sending [facility]; Date of exam [id number]; I believe a reinterpretation of this exam may alter care of Patient. Yes; Left breast oval nodule 2 o'clock;CAT 4; Pt would like treatment at [facility]. ?? COMPARISONS: Mammogram and ultrasound 11/17/2016 TECHNIQUE: CC and MLO views were obtained of each breast. 2-D and 3- D tomosynthesis images were obtained. Computer aided detection was used. Targeted ultrasound at the 2:00 radian, 5 cm from the nipple of the left breast. Please note: Breast ultrasound is back strip machine operator dependent. Complete assessment of the breast tissue is not possible through static images or cine loops. Because breast ultrasound is a dynamic process the interpretive value of outside images is limited. FINDINGS: Right breast: There are no suspicious masses, suspicious microcalcifications, or areas of architectural distortion. Left breast: In the left deep central slightly lateral breast there is a 1.3 cm well-circumscribed round mass. No areas of suspicious architectural distortion or microcalcifications. This was present on the prior examination dated 11/17/2016 though may have slightly increased in superior to inferior dimension and this was more obscured on the study from this time. Targeted ultrasound of the left breast at the 2:00 radian, 5 cm from the nipple shows a well-circumscribed, homogeneous, parallel, oval mass with macrolobulation and posterior enhancement. Procedure Note Maria Ines Mirza MD - 04/02/2021 INTERPRETATION OF OUTSIDE BREAST IMAGING I have been asked to consult on this patient by Dr. Briseno becausehe/she believes a review of this study may change or alter the care of thispatient. STUDIES FROM: [facility] DATES: 03/20/2021 and 03/27/2021 TYPE OF EXAM: Mammogram and left ultrasound CLINICAL HISTORY: Left breast oval nodule 2 o'clock;CAT 4; Pt [place] [facility] Sending [facility]; Date of exam [id number]; Ibelieve a reinterpretation of this exam may alter care of Patient. Yes; Left breastoval nodule 2 o'clock;CAT 4; Pt would like treatment at [facility]. COMPARISONS: Mammogram and ultrasound 11/17/2016 TECHNIQUE: CC and MLO views were obtained of each breast. 2-D and 3- D tomosynthesisimages were obtained. Computer aided detection was used. Targeted ultrasound at the 2:00 radian, 5 cm from the nipple of the leftbreast. Please note: Breast ultrasound is back strip machine operator dependent. Complete assessmentof the breast tissue is not possible through static images or cine loops.Because breast ultrasound is a dynamic process the interpretive value of outsideimages is limited. FINDINGS: Right breast: There are no suspicious masses, suspiciousmicrocalcifications, or areas of architectural distortion. Left breast: In the left deep central slightly lateral breast there is a1.3 cm well-circumscribed round mass. No areas of suspicious architecturaldistortion or microcalcifications. This was present on the prior examination dated 11/17/2016 though may have slightly increased in superior to inferiordimension and this was more obscured on the study from this time. Targeted ultrasound of the left breast at the 2:00 radian, 5 cm from thenipple shows a well-circumscribed, homogeneous, parallel, oval mass with macrolobulation and posterior enhancement. IMPRESSION Right breast: No mammographic evidence of malignancy. Left breast: 1.3 cm well-circumscribed mass at the 2:00 radian, 5 cm fromthe nipple corresponding to a well-circumscribed homogeneous hypoechoicparallel oval mass with macrolobulation and posterior enhancement on ultrasound.This mass was likely present in 2017. Advise redirected ultrasound to confirm sonographically benign features. RECOMMENDATION: As ultrasound is back strip machine operator dependent, recommend repeat targeted ultrasoundof the left breast prior to further intervention. Our facility will coordinatethis follow-up with the patient. BI-RADS Category 0: Incomplete-Need Additional Imaging Evaluation and/orPrior Mammograms for Comparison Please note: The interpretation of the [facility] BreastImaging Radiologist subspecialist may differ from the original radiologists interpretation. This is usually not due to a deficiency of the original interpreting radiologist, rather due to the greater skill level affordedby sub-specialization in the field and/or reasonable variations ininterpretations. If you have a concern regarding the [facility] interpretation you may [facility] at . I have personally reviewed the image(s) and the resident's interpretationand agree with the findings, Maria Ines Mirza MD at 04/02/2021 3:13 PM Thank you for letting us participate in the care of this patient. If youare a health care provider and have any questions regarding this report,please contact the number below. For patients who have questions please contactthe health assurance services manager health care that requested your imaging first. Electronically signed by: Maria Ines Mirza MD, [facility]([phone]), at 04/02/2021 3:13 PM Tristen WHITE IMG OUTSIDE INTERP RETATION ORDERABLES documented in this encounter Visit Diagnoses Diagnosis Breast nodule Other (abnormal) findings on radiological examination of breast documented in this encounter Care Teams Power House Control Room Operator Relationship Specialty Start Date End Date Tristen Briseno [address] [place] [address] PCP - General Family Medicine 02/15/20 documented as of this encounter
--- OUTSIDE RECORDS SUMMARY | 2024-06-02 17:30 | XMS_ITS | Encounter Summary ---
Author Organization [facility] [place] [address] Care Team Providers Care Business Area Manager Name Role Phone Tristen Briseno Primary Care Provider [phone] Encounter Details Date Type Department Care Team (Late st Contact Info) Description 11/17/2016 Ancillary Procedure Radiology Library [place] [facility] [place] [address] Tristen Briseno PA [address] [place], [place] [id number] Social History Tobacco Use Types Packs/Day Years Used Date Smoking Tobacco: Every Day Alcohol Use Standard Drinks/Week Comments No 0 [...] 08/15/2024 1:30 PM EDT Appointment Mammography/DXA at [facility] [place] [id number] Tristen Briseno PA [address] [place], [place] [address] documented as of this encounter Procedures Procedure Name Priority Date/Time Associated Diagnosis Comments FILM LIBRARY-STORAGE ONLY US BREAST Routine 11/17/2016 12:00 AM EDT documented in this encounter Results * Film Library Storage Only US Breast (11/17/2016 12:00 AM EDT) Narrative RAD - 03/31/2021 2:49 PM EDT This exam is auto-finalizing. It's purpose is for storage only. Tristen WHITE IMG FILM LIBRARY O RDERABLES [place], [place] documented in this encounter Visit Diagnoses Not on filedocumented in this encounter Care Teams Business Area Manager Relationship Specialty Start Date End Date Tristen Briseno PA [address] [place] [address] PCP - General Family Medicine 01/21/16 01/16/20 documented as of this encounter
--- OUTSIDE RECORDS SUMMARY | 2024-06-02 17:30 | XMS_ITS | Encounter Summary ---
[place] [address] Care Team Providers Care Control Analyst Name Role Phone Tristen Briseno Primary Care Provider [phone]- [phone] Encounter Details Date Type Department Care Team (Late st Contact Info) Description 04/12/2020 Telephone [place] [address] Arcelia Richardson Social History Tobacco Use Types Packs/Day Years [...] on file documented as of this encounter Miscellaneous Notes * Telephone Encounter - Arcelia Richardson - 04/12/2020 11:05 AM EST Called pt to let her know that apt on the was going to have to be a video apt or a phone call or reschedule to later date documented in this encounter Plan of Treatment Upcoming Encounters Date Type Department Care Team (Late st Contact Info) Description 08/15/2024 1:30 PM EDT Appointment Mammography/[place] [address] Tristen Briseno PA [address] [place] [address] documented as of this encounter Visit Diagnoses Not on filedocumented in this encounter Care Teams Control Analyst Relationship Specialty Start Date End Date Tristen Briseno PA [address] [place] [address] PCP - General Family Medicine 02/15/20 documented as of this encounter
--- OUTSIDE RECORDS SUMMARY | 2024-06-02 17:30 | XMS_ITS | Encounter Summary ---
Author Organization [facility] [place] [address] Care Team Providers Care Linter Drier Operator Name Role Phone Tristen Briseno Primary Care Provider +1- [phone] Encounter Details Date Type Department Care Team (Latest Contact Info) Description 04/08/2021 1:11 PM EST - 04/08/2021 11:59 PM EST Hospital [place] [address] Maria Ines Mirza MD [facility] [place] [address] Abnormal finding on mammography Discharge Disposition: Home Social History Tobacco Use Types Packs/Day Years [...] on file documented as of this encounter Medications at Time of Discharge Medication Sig Dispensed Refills Start Date End Date pantoprazole EC (Protonix) 40 mg Tablet, Delayed Release (E.C.) 02/29/2020 sucralfate (Carafate) 1 gram Tablet 4 times daily. 02/20/2020 ferrous gluconate (Fergon) 324 mg (37.5 mg iron) Tablet Take 324 mg by mouth daily. dicyclomine (BENTYL) 10 mg capsule Take 10 mg by mouth 4 times daily (before meals and nightly). documented as of this encounter Plan of Treatment Upcoming Encounters Date Type Department Care Team (Late st Contact Info) Description 08/15/2024 1:30 PM EDT Appointment Mammography/[place] [address] Tristen Briseno PA [address] [place] [address] documented as of this encounter Procedures Procedure Name Priority Date/Time Associated Diagnosis Comments MAMMO BREAST US LIMITED LEFT Routine 04/08/2021 1:44 PM EST Abnormal finding on mammography documented in this encounter Results * US Breast Limited Left (04/08/2021 1:44 PM EST) Anatomical Region Laterality Modality Breast Left Mammography Impressions 04/08/2021 1:46 PM EST Personally performed ultrasound confirms sonographically benign appearing mass in the same location and the same size as the stable mammographic mass identified in 2017. Recommend resuming annual screening. BI-RADS Category 2: Benign Findings * ??Regular screening mammograms starting between age 40 and 50 reduces the risk of from breast cancer. * ??All screening tests have both risks and benefits. These risks and benefits should be assessed for each individual patient through discussion with their provider to determine their preferred breast cancer screening schedule. * ??Women should report any breast changes to a health care provider right away. * ??Some women, because of their family history, a genetic tendency, or other factors, should be screened with annual breast MRI as well as with mammograms. (The number of women who fall into this category is very small). Patients and health care providers should discuss each patients history to decide if earlier screening and/or breast MRI are appropriate. * ??Screening should continue as long as a woman is in good health and is expected to live 10 years or longer. * ??Screening mammography may not detect 10-15% of breast cancers. Thank you for letting us participate in the care of this patient. ??If you are a health care provider and have any questions regarding this report, please contact the number below. ??For patients who have questions please contact the health director of primary care that requested your imaging first. ? Electronically signed by: Maria Ines Mirza MD, [facility] ([phone]), at 04/08/2021 1:46 PM Narrative 04/08/2021 1:46 PM EST EXAMINATION: US ??BREAST LIMITED LEFT CLINICAL HISTORY: ABNORMAL FINDING, OUTSIDE INTERP TECHNIQUE: I personally performed high-resolution ultrasound of the left breast, correlating this finding with the mammographic finding. COMPARISON: This study was compared with prior images. FINDINGS: There is a sonographically benign appearing circumscribed parallel homogeneously hypoechoic mass at the left breast 2:00 radian middle third measuring 1.3 cm in maximal diameter. This corresponds to the stable mammographic finding. Maria Ines Mirza MD IMG MAMMO ORDERABL ES documented in this encounter Visit Diagnoses Diagnosis Abnormal finding on mammography Abnormal mammogram, unspecified documented in this encounter Care Teams Linter Drier Operator Relationship Specialty Start Date End Date Tristen Briseno PA [address] [place] [address] PCP - General Family Medicine 02/15/20 documented as of this encounter
--- OUTSIDE RECORDS SUMMARY | 2024-06-02 17:30 | XMS_ITS | Encounter Summary ---
[place] [address] Care Team Providers Care Pony Cylinder Press Operator Name Role Phone Tristen Briseno Primary Care Provider +1- [phone] Encounter Details Date Type Department Care Team (Late st Contact Info) Description 03/31/2021 Telephone [place] [address] Renetta Bruno Social History Tobacco Use Types Packs/Day Years [...] encounter Miscellaneous Notes * Telephone Encounter - Renetta Bruno - 03/31/2021 11:39 AM EDT Patient Name: Loyda Milian Patient : 1975 Attn: [facility] Image Library From: [facility] - [phone] Fed-Ex# [id number] - Please overnight [] Urgent [x] For Review [] Please Reply [] Please Recycle Pursuant to the Federal Mammography Quality Standards Act-Section 900.12(c), (4), (ii) Comments: Please send all Mammograms, Ultrasounds & Breast MRIs or any scan pertaining to breast cancer. (CD, Films, Electronic Transfer & Reports) to [facility], [place] [address] If Questions call [phone] Notice of Confidentiality: The documents accompanying this FAX transmission cover contain information from [facility] that is confidential and privileged. The information is intended for the use of the individual or entity named on this transmittal sheet. If you are not the intended recipient, be aware that any disclosure, copying, distribution or use of the contents is prohibited. If you have received the FAX in error, please notify us by telephone (collect) immediately to permit us to arrange for the retrieval of the documents at no cost to you. documented in this encounter Plan of Treatment Upcoming Encounters Date Type Department Care Team (Late st Contact Info) Description 08/15/2024 1:30 PM EDT Appointment Mammography/[place] [address] Tristen Briseno PA [address] [place] [address] documented as of this encounter Visit Diagnoses Not on filedocumented in this encounter Care Teams Pony Cylinder Press Operator Relationship Specialty Start Date End Date Tristen Briseno PA [address] [place] [address] PCP - General Family Medicine 02/15/20 documented as of this encounter
--- OUTSIDE RECORDS SUMMARY | 2024-06-02 17:30 | XMS_ITS | Encounter Summary ---
[place] [address] Care Team Providers Care Landscape Maintenance Internship Name Role Phone Tristen Briseno Primary Care Provider +1- [phone] Encounter Details Date Type Department Care Team (Latest Contact Info) Description 09/02/2023 Travel Social History Tobacco Use Types Packs/Day Years [...] 08/15/2024 1:30 PM EDT Appointment Mammography/[place] [address] Tristen Briseno PA [address] [place] [address] documented as of this encounter Visit Diagnoses Not on filedocumented in this encounter Care Teams Landscape Maintenance Internship Relationship Specialty Start Date End Date Tristen Briseno PA [address] [place] [address] PCP - General Family Medicine 02/15/20 documented as of this encounter
--- OUTSIDE RECORDS SUMMARY | 2024-06-02 17:30 | XMS_ITS | Encounter Summary ---
Author Organization [facility] Address [address] [place] [address] Care Team Providers Care Operational Intelligence Analyst Name Role Phone Md ALEJANDRO Dunaway Primary Care Provider Dez wood Encounter Details Date Type Department Care Team (Late st Contact Info) Description 02/07/2016 Results Only [facility] [phone] Roque Alvares, [address] [place] [address] Social History Tobacco Use Types Packs/Day Years [...] Priority Date/Time Associated Diagnosis Comments SURGICAL PATHOLOGY Routine 02/07/2016 10 :13 EDT documented in this encounter Results * SURGICAL PATHOLOGY (02/07/2016 10:13 EDT) Pathology Report: SURGICAL PATHOLOGY REPORT Reports generated via electronic interface contain original data; however they are lacking the format of the original report. Caution should be taken when reading/interpret ing unformatted reports. Name: ? DICKSON MILIAN ? Accession #: ? [id number] ? : ? 1975 (Age: 40) ??F ? Collect Date: ? 02/07/2016 ? Location: ? [facility] ? Receive Date: ? 02/10/2016 ? Provider: ROQUE ALVARES DO Copy to: TERESITA DUMAS REMELT PAN TANK OPERATOR ? Final Pathologic Diagnosis: SKIN OF NOSE, RIGHT, SHAVE BIOPSY: - Fibrous papule (angiofibroma). ?? Microscopic Description: Sections are of a dome-shaped papule. ??The epidermis has diminished rete architecture but is otherwise unremarkable. ??The collagen bundles within the superficial dermis are thick and associated with spindle and stellate fibrocytes. ??There are thin-walled dilated vessels. ??(Dr. Vee)/ljn Document reviewed and electronically signed by: HEATHER VEE MD Report ??Date: 02/13/2016 14:24 By the signature above, the attending physician certifies that he/she has personally conducted a gross and/or microscopic examination of the described specimens and rendered or confirmed the above diagnosis. Specimen(s) Received: Right nose Clinical History: Cutaneous horn, clinical diagnosis code: D49.2 Gross Description: ? Received in formalin labelled with proper patient identification (initials G, K) and right nose is a shave biopsy of a pink-almaguer pedunculated papule (0.5 x 0.3 x 0.3 cm). The margins are inked blue. The specimen is submitted intact as 1. Rios Devine 02/11/2016 11:32 AM End of Report [facility] 02/07/2016 10:1 3 EDT 02/10/2016 10:13 EDT us Roque Alvares DO PATHOLOGY ORDERABLES Fi nal Result [facility] [address] [place] [id number] documented in this encounter Visit Diagnoses Not on filedocumented in this encounter Care Teams Operational Intelligence Analyst Relationship Specialty Start Date End Date Md Dunaway MD PCP - General 04/23/14 02/12/16 documented as of this encounter
--- OUTSIDE RECORDS SUMMARY | 2024-06-02 17:30 | XMS_ITS | Encounter Summary ---
[place] [address] Care Team Providers Care Electrical Solderer Name Role Phone Tristen Briseno Primary Care Provider +1- [phone] Reason for Referral * Consultation (Routine) - Closed Specialty Diagnoses / Procedures Referred By Contac t Referred To Contact Gastroenterology Diagnoses Chronic diarrhea IBS Bogdan Mitchell [place] [facility] [place] [address] [facility] [address] [place] [phone] Referral ID Status Reason Start Date Expiration Date V isits Requested Visits Authorized [id number] Closed Consult, Test & Treat 03/04/2020 03/04/2021 1 1 Reason for Visit * Reason Comments Establish Care * Consultation (Routine) - Closed Specialty Diagnoses / Procedures Referred By Contrick t Referred To Contact General Surgery Diagnoses Bloody diarrhea Matthew Camilo MD [facility] [place] [address] [facility] [address] [place] [phone] Referral ID Status Reason Start Date Expiration Date V isits Requested Visits Authorized [id number] Closed Consult, Test & Treat 02/15/2020 02/14/2021 1 1 Encounter Details Date Type Department Care Team (Late st Contact Info) Description 03/04/2020 1:00 PM EDT Office [place] [phone] Bogdan Mitchell PA Chronic diarrhea (Primary Dx) Social History Tobacco Use Types Packs/Day Years [...] on file documented as of this encounter Last Filed Vital Signs Vital Sign Reading Time Taken Comments Blood Pressure 119/60 03/04/2020 12:53 PM EDT Pulse 79 03/04/2020 12:53 PM EDT Temperature - - Respiratory Rate 16 03/04/2020 12:53 PM EDT Oxygen Saturation 99% 03/04/2020 12:53 PM EDT Inhaled Oxygen Concentration - - Weight 67.6 kg (149 lb) 03/04/2020 12:53 PM EDT Height 165.1 cm (5' 5) 03/04/2020 12:53 PM EDT Body Mass Index 24.79 03/04/2020 12:53 PM EDT documented in this encounter Progress Notes * Bogdan Mitchell PA - 03/04/2020 1:00 PM EDT Anorectal Surgery Outpatient Consultation ~ Division of Colon and Rectal Surgery ~ [facility] CC: No chief complaint on file. Referring Provider: Matthew Camilo Primary Care Provider: CINDY Sepulveda HPI: Loyda Milian is a 44 y.o. female from [place], [place]. She recently underwent EGD and colonoscopy02/15/2020 [facility] [place] [facility] [place] chronic diarrhea 3 mm rectal polyp - hyperplastic polyp. Normal terminalileum. An area of congestion with nodular features was noted in the rectum. Biopsy of this was readas normal. She is referred here for additional exam. She is an active smoker and is interested in quitting Shehas not had an abnormal pap. Denies MARTIN. She makes multiple trips to the commode. She has thin pencil like stools as well as watery diarrhea. She has an incomplete emptying sensation with fragmentation. She describes years of issues with loose stools. Has tried limiting dietary factors, gluten, lactose, fibrous foods. No significant change. She is quite frustrated by this. Past Medical History: Diagnosis Date ??? Skull fracture with hemmorhage Past surgical history: Past Surgical History: Procedure Laterality Date ??? PRO COLONOSCOPY, DIAGNOSTIC 03/30/2012 COLONOSCOPY, DIAGNOSTIC performed by MIGUELINA DEXTER at [facility] ENDOSCOPY ??? PRO COLONOSCOPY, DIAGNOSTIC N/A 02/15/2020 COLONOSCOPY, DIAGNOSTIC performed by Matthew Camilo MD [facility] ??? PRO COLONOSCOPY, REMV LESN, SNARE 03/30/2012 COLONOSCOPY, POLYPECTOMY, REMOVAL LESION BY SNARE performed by MIGUELINA DEXTER at [facility] ENDOSCOPY ??? PRO UPPER GI ENDOSCOPY, DIAGNOSTIC N/A 02/15/2020 EGD, UPPER GI ENDOSCOPY performed by Matthew Camilo MD [facility] Allergies: Latex, Biaxin [clarithromycin], and Promethazine Medications: reviewed in the electronic medical record. Current Outpatient Medications on File Prior to Visit Medication Sig Dispense Refill ??? ferrous gluconate (Fergon) 324 mg (37.5 mg iron) Tablet Take 324 mg by mouth daily. ??? dicyclomine (BENTYL) 10 mg capsule Take 10 mg by mouth 4 times daily (before meals and nightly). No current facility-administered medications on file prior to visit. Social history: reports that she has been smoking. She does not have any smokeless tobacco history on file. She reports that she does not drink alcohol or use drugs. Family medical history: The patient denies a family history of colorectal cancer, colorectal polyps, diverticular disease and ulcerative colitis. Fhx + Crohns Review of Systems: Physical Exam: Blood pressure 119/60, pulse 79, resp. rate 16, height 165.1 cm (5' 5), weight 67.6kg (149 lb), last menstrual period 02/12/2020, SpO2 99 %. Body mass index is 24.79 kg/m??. General Appearance: Normal, pleasant appearing Female,no acute distress, anicteric well developed and well nourished. Respiratory: excellent chest expansion, symmetric chest rise, clear to auscultation bilaterally, nowheezes noted Cardiac: Regular rate and rhythm, no murmurs noted, normal S1, S2, Abdomen: soft, nontender, nondistended, bs+, no masses palpated. Artistic tattoos.B/L Digital Rectal Exam: The patient was examined in the hndbn-prah-rbngx position with Essence assisting. ?? Gentle eversion of the anoderm revealed normal appearing anoderm ?? Resting tone was adequate ?? Squeeze/augmentation was diminished ?? Puborectalis relaxation was delayed and reduced ?? Anoscopy: Four quadrant anoscopy revealed internal hemorrhoids in the normal anatomic locations.These are grade II. The site of the biopsy appears to to be just proximal to the dentate line and in the left posterior quadrant. There also appears to be a hyper trophic anal papilla here. COREFO: COREFO Responses 03/04/2020 Incontinence Scale 19.44 Social Impact Scale 77.77 Frequency Scale 25 Stool Releated Aspects 66.66 Medication Scale 75 Total COREFO Score 51.92 The COREFO questionnaire is a validated questionnaire with 27 questions to assess colorectal functional outcome. Patients are asked to consider the two week period prior before filling out the questionnaire. Category scores range from zero to 100. A total score is calculated from the categories above, also ranging from zero to 100. A higher score represents an increased level of functional disturbance. Impression: Loyda Milian is an 44 y.o. female with the followin. Chronic diarrhea 2. Internal hemorrhoids, grade II 3. Active tobaccoism She and I discussed that she could benefit from several changes in her diet, mainly increasing fiber intake to 35 g/day, stopping smoking, and adopting an exercise regimen striving for 90 min/week. She is upset that she has been negatively impacted for so long with GI upset and diarrhea. I would like her to start a fiber regimen, and return in 2 months for repeat assessment. We talked about benefiber which may be less likely to cause flatus and bloating, Also suggested erin seeds. Lastly I would like her to have a consult with our gastroenterology team here regarding her diarrhea. She is in agreement. Plan: We have discussed these issues and have come up with the following plan: Start fiber supplement benefiber, Stop smoking Referral to GI Resume a regular exercise program Bogdan Mitchell PA-C, [facility] 03/04/2020 11:53 AM Division of Colon and Rectal Surgery [facility] Pager [phone] w documented in this encounter Plan of Treatment Upcoming Encounters Date Type Department Care Team (Late st Contact Info) Description 08/15/2024 1:30 PM EDT Appointment Mammography/[place] [address] Tristen Briseno PA [address] [place] [address] Scheduled Referrals Name Type Priority Associated Diagnoses Order Schedule Referral to Gastroenterology Outpatient Referral Routine Chronic diarrhea Ordered: 03/04/2020 documented as of this encounter Visit Diagnoses Diagnosis Chronic diarrhea- Primary Diarrhea documented in this encounter Care Teams Electrical Solderer Relationship Specialty Start Date End Date Tristen Briseno PA [address] [place] [address] PCP - General Family Medicine 02/15/20 documented as of this encounter
--- OUTSIDE RECORDS SUMMARY | 2024-06-02 17:30 | XMS_ITS | Encounter Summary ---
Author Organization [facility] Address [address] [place] [address] Care Team Providers Care Edi Specialist Name Role Phone Unavailable Primary Care Provider Unavailabl e Encounter Details Date Type Department Care Team (Late st Contact Info) Description 11/23/2003 Results Only [facility] [address] [place] [address] Chloe Mckeon, [facility] [address] [place] [address] [place] [address] Social History Tobacco Use Types Packs/Day Years [...] Procedure Name Priority Date/Time Associated Diagnosis Comments CYTOPATHOLOGY Routine 11/23/2003 0:00 EDT documented in this encounter Results * CYTOPATHOLOGY (11/23/2003 0:00 EDT) Pathology Report: CYTOPATHOLOGY REPORT Reports generated via electronic interface contain original data; however they are lacking the format of the original report. Caution should be taken when reading/interpreti ng unformatted reports. Name: ? IDCKSON MILIAN ? Accession #: ? [id number] : ? 1975 (Age: 28) ??F ?Collect Date: ? 11/23/2003 Location: ? [facility] ? Receive Date: ? 11/27/2003 Provider: ?CHLOE MCKEON POULTRY GRADER Copy to: ? Specimen/Source: ?ThinPrep Pap Test, Cervix/Endocervix Last Menstrual Period: ? 10/05/03 Other: ? HPVA - HPV testing requested if ASC-US on the current ThinPrep Pap test. ? SPECIMEN ADEQUACY ? Satisfactory for Evaluation - transformation zone component present GENERAL CATEGORIZATION ? Negative for Intraepithelial Lesion or Malignancy ? Document reviewed and electronically signed by: ? Ned Knox, TRACY(ASCP) ? Report Date: ??12/04/2003 11:40 End of Report N[facility] MONSON 11/23/2003 11/27/2003 us Chloe Mckeon POULTRY GRADER PATHOLOGY ORDERABLES Final R esult NAVA MONSON [address] [place] [address] documented in this encounter Visit Diagnoses Not on filedocumented in this encounter
--- OUTSIDE RECORDS SUMMARY | 2024-06-02 17:30 | XMS_ITS | Encounter Summary ---
Author Organization [facility] [place] [address] Care Team Providers Care Head Grease Maker Name Role Phone Tristen Briseno Primary Care Provider +1- [phone] Encounter Details Date Type Department Care Team (Late st Contact Info) Description 03/27/2021 Ancillary Procedure Radiology Library [place] [facility] [place] [address] Tristen Briseno PA [address] [place] [address] Social History Tobacco Use Types Packs/Day Years [...] 08/15/2024 1:30 PM EDT Appointment Mammography/DXA at [facility] [place] [address] Tristen Briseno PA [address] [place] [address] documented as of this encounter Procedures Procedure Name Priority Date/Time Associated Diagnosis Comments FILM LIBRARY-STORAGE ONLY US BREAST Routine 03/27/2021 12:00 AM EDT documented in this encounter Results * Film Library Storage Only US Breast (03/27/2021 12:00 AM EDT) Narrative RAD - 03/31/2021 2:48 PM EDT This exam is auto-finalizing. It's purpose is for storage only. Trisetn WHITE IMKayce FILM LIBRARY O RDERABLES [place], [place] documented in this encounter Visit Diagnoses Not on filedocumented in this encounter Care Teams Head Grease Maker Relationship Specialty Start Date End Date Tristen Briseno PA [address] [place] [address] PCP - General Family Medicine 02/15/20 documented as of this encounter
--- OUTSIDE RECORDS SUMMARY | 2024-06-02 17:30 | XMS_ITS | Encounter Summary ---
[place] [address] Care Team Providers Care Ironworker Wire Fence Erector Name Role Phone Unknown Primary Care Provider Unavailabl e Encounter Details Date Type Department Care Team (Late st Contact Info) Description 01/23/2020 Telephone [place] [phone] Faraz Pereira Social History Tobacco Use Types Packs/Day Years [...] encounter Miscellaneous Notes * Telephone Encounter - Faraz Pereira - 01/23/2020 12:51 PM EDT Loyda Solis Milian [id number] Diagnosis/Indication: R19.7 (ICD-10-CM) - Diarrhea, unspecified K21.9 (ICD-10-CM) - Gastro-esophageal reflux disease without esophagitis 1. Have you ever had a/an Upper Endoscopy & Colonoscopy before? Yes: Date [place]ry 03/30/2012 If yes, did you have any problems with the procedure? No What type of sedation was used: General Anesthesia 2. Do you take any Blood Thinners? No 3. Do you have a Pacemaker or Defibrillator device? No 4. Are you a diabetic? No 5. Do you have any Allergies to Eggs, Latex or Medications? Yes: See chart + Latex 6. Do you take any Oral Iron Supplements (Including multi-vitamins)? Yes (Iron) 7. Do you have a history of three or more abdominal surgeries? No 8. Have you had a problem with sedation or anesthesia? No 9. Do you have a c-pap machine or oxygen tank? Neither 10. Do you take prescription narcotic pain medications, including suboxone or methodone? No 11. Do you have a preference regarding the gender of your provider? No Preference 12. Is there any other information you would like to give us to aid in scheduling? No 13. Say to patient: You must have a responsible democrat who will drive you to your procedure, stay oncampus for the entire duration of your procedure, and drive you home from your procedure? *Please Verify the height and weight, and adjust if height and/or weight have changed* There is no height or weight on file to calculate BMI. *Delete if not needed* Height: 5'5 Weight: 142 BMI: 23.6 Age:44 y.o. documented in this encounter Plan of Treatment Upcoming Encounters Date Type Department Care Team (Late st Contact Info) Description 08/15/2024 1:30 PM EDT Appointment Mammography/[place] [address] Tristen Briseno PA [address] [place] [address] documented as of this encounter Visit Diagnoses Not on filedocumented in this encounter Care Teams Ironworker Wire Fence Erector Relationship Specialty Start Date End Date Unknown None PCP - General 01/17/20 02/14/20 documented as of this encounter
--- OUTSIDE RECORDS SUMMARY | 2024-06-02 17:30 | XMS_ITS | Encounter Summary ---
[place] [address] Care Team Providers Care Integration Specialist Name Role Phone Tristen Briseno Primary Care Provider +1- [phone] Encounter Details Date Type Department Care Team (Latest Contact Info) Description 07/02/2022 Travel Social History Tobacco Use Types Packs/Day [...] 08/15/2024 1:30 PM EDT Appointment Mammography[place] [address] Tristen Briseno PA [address] [place], [place] [id number] documented as of this encounter Visit Diagnoses Not on filedocumented in this encounter Care Teams Integration Specialist Relationship Specialty Start Date End Date Tristen Briseno PA [address] [place] [address] PCP - General Family Medicine 02/15/20 documented as of this encounter
--- OUTSIDE RECORDS SUMMARY | 2024-06-02 17:30 | XMS_ITS | Clinical Summary ---
Author Organization [facility] [place] [address] Care Team Providers Care Dental Patient Coordinator Name Role Phone Tristen Briseno Primary Care Provider +1- [phone] Allergies Active Allergy Reactions Criticality Noted Date Comments Clarithromycin Nausea And Vomiting 03/30/2012 Latex 02/15/2020 Bandages Promethazine 03/30/2012 Medications Medication Sig Dispensed Refills Start Date End Date Status dicyclomine (BENTYL) 10 mg capsule Take 10 mg by mouth 4 times daily (before meals and nightly). Active ferrous gluconate (Fergon) 324 mg (37.5 mg iron) Tablet Take 324 mg by mouth daily. Active pantoprazole EC (Protonix) 40 mg Tablet, Delayed Release (E.C.) 02/29/2020 Active sucralfate (Carafate) 1 gram Tablet 4 times daily. 02/20/2020 Active Active Problems Problem Noted Date Diagnosed Date Smoker 03/29/2012 IBS (irritable bowel syndrome) 03/29/2012 Bloody diarrhea 03/29/2012 Social History Tobacco Use Types Packs/Day Years Used Date Smoking Tobacco: Every Day Comments:smokes less than 1/ 2 pack Alcohol Use Standard Drinks/Week Comments No 0 (1 standard drink = 0.6 oz pur e alcohol) Sex and Gender Information Value Date Recorded Sex Assigned at Female 04/08/2021 11:52 AM EST Gender Identity Not on file Sexual Orientation Not on file Last Filed Vital Signs Vital Sign Reading Time Taken Comments Blood Pressure 119/60 03/04/2020 12:53 PM EDT Pulse 79 03/04/2020 12:53 PM EDT Temperature 36.3 ??C (97.3 ??F) 02/15/2020 11:00 AM E DT Respiratory Rate 16 03/04/2020 12:53 PM EDT Oxygen Saturation 99% 03/04/2020 12:53 PM EDT Inhaled Oxygen Concentration - - Weight 67.6 kg (149 lb) 03/04/2020 12:53 PM EDT Height 165.1 cm (5' 5) 03/04/2020 12:53 PM EDT Body Mass Index 24.79 03/04/2020 12:53 PM EDT Plan of Treatment Upcoming Encounters Date Type Department Care Team (Late st Contact Info) Description 08/15/2024 1:30 PM EDT Appointment Mammography/[place] [address] Tristen Briseno PA [address] [place], [place] [id number] Health Maintenance Due Date Last Done Comments CT Colonography 1975 FIT DNA 1976 FIT 1975 Sigmoidoscopy 1975 HIV screen 1994 Hepatitis C Screening 1994 Lipid Screening 1994 Hepatitis B vaccine (0-59 yrs) (1) 10/20/1995 Pneumococcal Vaccine: At-Ris k 5-64yrs (1 of 2 - PCV) 10/20/1995 Tetanus/Diphtheria/Pertussis Vaccines (1 - Tdap) 10/20/1995 HPV test 2006 PAP Smear 2006 Breast Cancer Share Decision Needed 2016 Covid-19 Vaccine (1 - 2023-2 5 season) 2024 Influenza (Flu) vaccine (1 o f 1 - Influenza standard series) 01/30/2024 Breast Cancer screening 07/08/2024 07/08/2022 Colonoscopy 02/14/2030 02/15/2020, 01/29, 03/30/2012, Additional history exists Colorectal Cancer Screening 02/14/2030 Sigmoidoscopy (10 year) with FIT yearly 02/14/2030 02/15/2020, 02/15/2020, 03/30/2012, Additional history exists Procedures Procedure Name Priority Date/Time Associated Diagnosis Comments MAMMO SCREENING CAD AND JOSE F BILATERAL Routine 07/08/2022 9:27 AM EST Encounter for screening mammogram for breast cancer COLONOSCOPY Routine 02/15/2020 10:00 AM EDT from Last 3 Months or Most Recently Relevant to Health Maintenance Results * Mammo Screening Cad and Jose F Bilateral (07/08/2022 9:27 AM EST) Anatomical Region Laterality Modality Breast Bilateral Mammography Narrative 07/08/2022 9:49 AM EST BILATERAL MAMMOGRAPHY REASON FOR EXAM: Screening TECHNIQUE: CC and MLO views were obtained of each breast using standard 2-D mammography as well as 3-D tomosynthesis. Computer aided detection was used. This is compared with prior images. FINDINGS: There are scattered areas of fibroglandular density. There are no suspicious microcalcifications, masses, or areas of distortion. The pattern is stable. CONCLUSION: No mammographic evidence of malignancy. RECOMMENDATION: Regular screening mammograms starting between age 40 and 50 reduces the risk of from breast cancer. All screening tests have both risks and benefits. These risks and benefits should be assessed for each individual patient through discussion with their provider to determine their preferred breast cancer screening schedule. Women should report any breast changes to a health care provider right away. Some women, because of their family history, a genetic tendency, or other factors, should be screened with annual breast MRI as well as with mammograms. (The number of women who fall into this category is very small). Patients and health care providers should discuss each patient? s history to decide if earlier screening and/or breast MRI are appropriate. Screening should continue as long as a woman is in good health and is expected to live 10 years or longer. Screening mammography may not detect 10-15% of breast cancers. A result letter has been sent to this patient by the [facility]. BIRADS CATEGORY 1: NEGATIVE Electronically signed by: CHLOÉ STILL MD Tristen WHITE IMKayce MAMMO ORDERABL ES * COLONOSCOPY (02/15/2020 10:00 AM EDT) COLONOSCOPY [facility] Endoscopy Procedure Date: 02/15/2020 10:00 AM ? Patient Name: Loyda Milian ? Date of : 1975 ? Age: 44 ? Order #: [id number] ? Instrument Name: [id number] ? Procedure: ? Colonoscopy Indications: ? Chronic diarrhea Patient Profile: ? 44 yo F with diarrhea presents for ? colonoscopy. Providers: ? Matthew Camilo Referring : ?CINDY Francis Medicines: ? Monitored Anesthesia Care Complications: ? No immediate complications. Procedure: ? Pre-Anesthesia Assessment: ? - Prior to the procedure, a History ? and Physical was performed, and ? patient medications, allergies and ? sensitivities were reviewed. The ? patient's tolerance of previous ? anesthesia was reviewed. ? - The risks and benefits of the ? procedure and the sedation options ? and risks were discussed with the ? patient. All questions were answered ? and informed consent was obtained. ? - Patient identification and proposed ? procedure were verified prior to the ? procedure by the physician, the ? nurse, the anesthesiologist and the ? fx artist. The procedure was ? verified in the pre-procedure area in ? the procedure room. ? - Pre-procedure physical examination ? revealed no contraindications to ? sedation. ? - ASA Grade Assessment: II - A ? patient with mild systemic disease. ? - After reviewing the risks and ? benefits, the patient was deemed in ? satisfactory condition to undergo the ? procedure. ? - The anesthesia plan was to use ? monitored anesthesia care (MAC). ? - Immediately prior to administration ? of medications, the patient was ? re-assessed for adequacy to receive ? sedatives. ? - Sedation was administered by an ? anesthesia professional. Anesthesia. ? - The heart rate, respiratory rate, ? oxygen saturations, blood pressure, ? adequacy of pulmonary ventilation, ? and response to care were monitored ? throughout the procedure. ? - The physical status of the patient ? was re-assessed after the procedure. ? The procedure, indications, benefits, ? risks and alternatives were explained ? to the patient. Specifically ? discussed were potential ? complications including, but not ? limited to, bleeding, perforation, ? infection, missing a cancer, and ? adverse medication reactions. The ? patient was placed in the left ? lateral decubitus position, and a ? digital rectal exam was performed. ? The Colonoscope was inserted in the ? anus and under direct visualization, ? advanced to the terminal ileum, with ? identification of the appendiceal ? orifice and IC valve. Careful ? inspection was made as the ? colonoscope was withdrawn. The ? colonoscopy was performed without ? difficulty. The patient tolerated the ? procedure well. The quality of the ? bowel preparation was adequate. ? Findings: ? The perianal and digital rectal examinations were ? normal. ? The terminal ileum appeared normal. ? A 3 mm polyp was found in the rectum. The polyp was ? sessile. The polyp was removed with a cold snare. ? Resection and retrieval were complete. ? Remainder of colon mucosa was normal. Non-targeted ? left and right colon biopsies obtained for ? microscopic colitis. ? A localized area of congested and nodular mucosa was ? found in the rectum. Biopsies were taken with a cold ? forceps for histology. ? Non-bleeding internal hemorrhoids were found during ? retroflexion. The hemorrhoids were large. ? Moderate Sedation: ? MAC Impression: ?- One 3 mm polyp in the rectum, ? removed with a cold snare. Resected ? and retrieved. ? - The examined portion of the ileum ? was normal. ? - Remainder of colon mucosa normal. ? Biopsied for microscopic colitis. ? - Congested and nodular mucosa in the ? rectum. Biopsied. ? - Non-bleeding internal hemorrhoids. Recommendation: ?- Patient has a contact number ? available for emergencies. The signs ? and symptoms of potential delayed ? complications were discussed with the ? patient. Return to normal activities ? tomorrow. Written discharge ? instructions were provided to the ? patient. ? - Await pathology results. ? - Referral to colorectal surgery for ? further evaluation of thickening ? mucosa in the rectum adjacent to ? hemorrhoids. Also follow up pathology ? results of this targeted area. ? - Return to referring physician as ? previously scheduled. ? Procedure Code(s): ?? --- Professional --- ? 69795, Colonoscopy, flexible; with ? removal of tumor(s), polyp(s), or ? other lesion(s) by snare technique ? 11886, 59, Colonoscopy, flexible; ? with biopsy, single or multiple CPT copyright 2019 [employer]. All rights reserved. The codes documented in this report are preliminary and upon ball racker review may be revised to meet current compliance requirements. Matthew Camilo, 02/15/2020 11:10:54 AM Number of Addenda: 0 Note Initiated On: 02/15/2020 10:00 AM PROVATION 02/15/2020 10:0 0 AM EDT Matthew Camilo MD GENERAL SURGICAL ORD ERABLES PROVATION from Last 3 Months or Most Recently Relevant to Health Maintenance Care Teams Dental Patient Coordinator Relationship Specialty Start Date End Date Tristen Briseno PA [address] [place] [address] PCP - General Family Medicine 02/15/20
--- OUTSIDE RECORDS SUMMARY | 2024-06-02 17:30 | XMS_ITS | Encounter Summary ---
Author Organization [facility] Address [address] [place] [address] Care Team Providers Care Power Transformer Assembler Name Role Phone Jeanette Reza NP Primary Care Provider [phone] Encounter Details Date Type Department Care Team (Late st Contact Info) Description 01/11/2020 Lab Requisition [facility] Pathology & Laboratory Medicine - [address] [id number] Outr Resulting Lab, Provider Social History Tobacco [...] Procedure Name Priority Date/Time Associated Diagnosis Comments CELIAC DISEASE PANEL Routine 01/10/2020 12:30 EDT documented in this encounter Results * CELIAC DISEASE PANEL (01/10/2020 12:30 EDT) Tissue Transglutaminase Antibody IGA <1.2 <4.0 U/mL 01/15/2020 15:13 EDT [facility] Comment: A negative result may be due to IgA deficiency and does not rule out celiac disease. ? Negative: ??<4.0 U/mL ? Weak Positive: ??4.0 - 10.0 U/mL ? Positive: ??>10.0 U/mL Results were obtained with the [employer] QUANTA Lite R h-tTG IgA MAGDA assay on the DeRev DSX. IgA 330 85 - 499 mg/dL 01/15/2020 15:13 EDT [facility] Celiac Disease Interpretation Negative Serology. Celiac disease unlikely. Approximately 10% of patients with celiac disease are seronegative. Patients who are already adhering to a gluten-free diet may also be seronegative. If celiac disease is highly clinically suspected, referral to gastroenterology for additional evaluation is recommended. 01/15/2020 15:13 EDT [facility] Blood VENOUS BLOOD / Unknown 01/10/2020 12:30 EDT 01/11/2020 17:26 EDT us Provider Outr Resulting Lab IMMUNOLOGY AND SEROL OGY ORDERABLES Final Result [facility] [address] [place] [address] documented in this encounter Visit Diagnoses Not on filedocumented in this encounter Care Teams Power Transformer Assembler Relationship Specialty Start Date End Date Jeanette Reza NP [facility] [address] [place], [place] [id number] PCP - General 02/13/16 documented as of this encounter
--- OUTSIDE RECORDS SUMMARY | 2024-06-02 17:30 | XMS_ITS | Encounter Summary ---
Author Organization [facility] Address [address] [place] [address] Care Team Providers Care Inside Sales Advisor Name Role Phone Unavailable Primary Care Provider Unavailabl e Encounter Details Date Type Department Care Team (Late st Contact Info) Description 05/22/2002 Results Only [facility] - Maple conversion [address] [place] [address] Chloe Mckeon, [facility] [address] [place] [address] [place] [address] Social History Tobacco Use Types [...] Priority Date/Time Associated Diagnosis Comments CYTOPATHOLOGY Routine 05/22/2002 0:00 EST documented in this encounter Results * CYTOPATHOLOGY (05/22/2002 0:00 EST) Pathology Report: CYTOPATHOLOGY REPORT Reports generated via electronic interface contain original data; however they are lacking the format of the original report. Caution should be taken when reading/interpreti ng unformatted reports. Name: ? DICKSON MILIAN ? Accession #: ? [id number] : ? 1975 (Age: 26) ??F ?Collect Date: ? 05/22/2002 Location: ? [facility] ? Receive Date: ? 05/25/2002 Provider: ?CHLOE MCKEON FOUNDER AND CHIEF EXECUTIVE OFFICER Copy to: ? Specimen/Source: ?ThinPrep Pap Test, Cervix/Endocervix Last Menstrual Period: ? 05/18/02 Hormonal/Contracep tive Status: ? Tubal ligation ? SPECIMEN ADEQUACY ? Satisfactory for Evaluation - transformation zone component present GENERAL CATEGORIZATION ? Negative for Intraepithelial Lesion or Malignancy ? Document reviewed and electronically signed by: ? Jaclyn Bronson, ??SCT(ASCP) ? Report Date: ??05/30/2002 07:02 End of Report [facility] 05/22/2002 05/25/2002 us Chloe Mckeon FOUNDER AND CHIEF EXECUTIVE OFFICER PATHOLOGY ORDERABLES Final R esult N[facility] MONSON [address] [place] [address] documented in this encounter Visit Diagnoses Not on filedocumented in this encounter
--- OUTSIDE RECORDS SUMMARY | 2024-06-02 17:30 | XMS_ITS | Encounter Summary ---
Author Organization [facility] [place] [address] Care Team Providers Care Senior Field Service Engineer Name Role Phone Tristen Briseno Primary Care Provider [phone]- [phone] Encounter Details Date Type Department Care Team (Late st Contact Info) Description 02/15/2020 10:00 AM EDT Anesthesia Event Operating Room [facility] [address] [place] [address] Geovanna Herrera CRNA [address] [place] [address] Anesthesia Record Procedure Summary Procedure Name Responsible Anesthesiologist Anesthesia Start Time Anesthesia Stop Time EGD, UPPER GI ENDOSCOPY (WRVU 2.09) Geovanna Herrera CRNA 02/15/20 1000 02/15/20 1101 Events Date Time Event Comment 02/15/2020 1000 Start 1005 1009 AN Verify 1011 An Start Data 1015 An Induction 1017 Anesthesia Ready 1055 an stop data 1058 Recovery or ICU Handoff Rosita ent care was transferred to the destination unit staff after review of the patient's medical history, current anesthetic/surgical status and plan, according to the Provider Handoff Checklist. 1101 Stop Meds Name Total Propofol 130 mg Propofol INF 290.51 mg lactated ringers infusion 1,000 mL * Agents Name O2 Air N2O O2 Auxiliary Flowmeter 1 * Blood No blood administrations on file. Lines, Drains, and Airways Type Details Placement Removal (RETIRED) Peripheral IV Line - Single Lumen 02/15/20; 0811; median cubital vein (antecubital fossa), left; [id number] catheter system; 20 gauge; distraction; 1; metacarpal vein (top of hand), left; no longer indicated, removed per policy/procedure, site care per policy/procedure, catheter/device intact; 02/15/20; 1114 02/15/20 0811 by Penny Rankin RN 02/15/20 1114 by Rima Carl RN documented in this encounter Social History Tobacco Use Types Packs/Day Years Used Date Smoking Tobacco: Every Day Alcohol Use Standard Drinks/Week Comments No 0 (1 standard drink = 0.6 oz pur e alcohol) Sex and Gender Information Value Date Recorded Sex Assigned at Female 04/08/2021 11:52 AM EST Gender Identity Not on file Sexual Orientation Not on file documented as of this encounter OR Notes * Anesthesia Postprocedure Evaluation - Geovanna Herrera CRNA - 02/15/2020 11:02 AM EDT Department of Anesthesiology Post-procedure Note Patient: Loyda Milian Procedure Summary Date: 02/15/20 Room / Location: [facility] PROCEDURES / [facility] MAIN OR Anesthesia Start: 1000 Anesthesia Stop: 1101 Procedures: EGD, UPPER GI ENDOSCOPY (N/A ) COLONOSCOPY, DIAGNOSTIC (N/A Trunk) Diagnosis: (Diarrhea, unspecified, gastro- esophageal reflux disease without esophagitis) Surgeon: Matthew Camilo MD Responsible Provider: Geovanna Herrera CRNA Anesthesia Type: MAC ASA Status: 2 All Anesthesia Providers: GLADYS Independent: Geovanna Herrera CRNA Vitals Value Taken Time BP Temp Pulse Resp SpO2 Pain Level Patient Location: PACU Level of Consciousness: Conscious but Sleepy Pain Management: PONV: None Cardiovascular Status: At Baseline Respiratory Status: At Baseline Postoperative Fluid Status: Possible Anesthetic Complications: NONE apparent at time of evaluation Final Primary Anesthesia Type: MAC (The anesthetic type performed was the same as planned.) Comments: * Anesthesia Preprocedure Evaluation - Geovanna Herrera CRNA - 02/15/2020 10:04 AM EDT Pre-Anesthesia Evaluation for: Loyda Milian a 44 y.o. female. Procedure(s): EGD, UPPER GI ENDOSCOPY COLONOSCOPY, DIAGNOSTIC Patient Active Problem List Diagnosis ??? Smoker ??? IBS (irritable bowel syndrome) ??? Bloody diarrhea Past Medical History: Diagnosis Date ??? Skull fracture with hemmorhage Past Surgical History: Procedure Laterality Date ??? COLONOSCOPY, DIAGNOSTIC 03/30/2012 COLONOSCOPY, DIAGNOSTIC performed by MIGUELINA DEXTER at [facility] ENDOSCOPY ??? COLONOSCOPY, REMV LESN, SNARE 03/30/2012 COLONOSCOPY, POLYPECTOMY, REMOVAL LESION BY SNARE performed by MIGUELINA DEXTER at [facility] ENDOSCOPY Social History Tobacco Use ??? Smoking status: Current Every Day Smoker Substance Use Topics ??? Alcohol use: No Social History Substance and Sexual Activity Drug Use No Allergies Allergen Reactions ??? Latex Bandages ??? Biaxin [Clarithromycin] Nausea And Vomiting ??? Promethazine Medications: MAR and/or home medications have been reviewed. Physical Exam: Patient Vitals for the past 24 hrs: Temp Pulse Resp BP SpO2 O2 Device 02/15/20 0753 36.2 ??C (97.2 ??F) 79 16 141/70 99 % RA Body mass index is 23.3 kg/m??. Height: 165.1 cm (5' 5) Weight: 63.5 kg (140 lb) Airway Assessment: Mallampati: II TM distance: >3 FB Neck ROM: full Cardiovascular Assessment: Rhythm: regular Rate: normal cardiovascular exam normal Pulmonary Assessment: pulmonary exam normal Dental Assessment: (+) upper dentures Misc Assessment: Patient is wearing No contact(s). IV access: Peripheral line Anesthesia Plan: ASA 2 MAC, with a(n) intravenous induction Informed Consent: Anesthetic plan and risks discussed with patient. Plan discussed with GLADYS. PAT Clinic Note documented in this encounter Plan of Treatment Upcoming Encounters Date Type Department Care Team (Late st Contact Info) Description 08/15/2024 1:30 PM EDT Appointment Mammography/[place] [address] Tristen Briseno PA [address] [place] [address] documented as of this encounter Visit Diagnoses Not on filedocumented in this encounter Administered Medications Inactive Administered Medications - up to 3 most recent administrations Medication Order MAR Action Action Date Dose Rate Site lactated ringers infusion 1,000 mL, at 50 mL/hr, Intravenous, CONTINUOUS, Starting on Mara 02/15/20 at 1030, Until Mara 02/15/20 at 1124, Day of Surgery (Day of Procedure) New Bag 02/15/2020 10:00 AM EDT New Bag 02/15/2020 8:11 AM EDT 1,000 mLs 50 mL/hr propofoL (Diprivan) 10 mg/mL bolus injection (Anesthesia) PRN, Starting on Mara 02/15/20 at 1015, Until Mara 02/15/20 at 1102, Anesthesia Intra-op Given 02/15/2020 10:41 AM EDT 30 mg Given 02/15/2020 10:15 AM EDT 100 mg propofoL (Diprivan) infusion CONTINUOUS PRN, Starting on Mara 02/15/20 at 1015, Until Mara 02/15/20 at 1102, Anesthesia Intra-op, Routine Rate/Dose Change 02/15/2020 10:41 AM EDT 125 mcg/kg/min 47.6 mL/hr Rate/Dose Change 02/15/2020 10:32 AM EDT 100 mcg/kg/min 38 .1 mL/hr New Bag 02/15/2020 10:15 AM EDT 150 mcg/kg/min 57.2 mL/ hr documented in this encounter Care Teams Senior Field Service Engineer Relationship Specialty Start Date End Date Tristen Briseno PA [address] [place] [address] PCP - General Family Medicine 02/15/20 documented as of this encounter
--- OUTSIDE RECORDS SUMMARY | 2024-06-02 17:30 | XMS_ITS | Encounter Summary ---
[place] [address] Care Team Providers Care Open Hearth Furnace Operator Helper Name Role Phone Tristen Briseno Primary Care Provider [phone] Reason for Referral * Consultation (Routine) - Closed Specialty Diagnoses / Procedures Referred By Anthony le Referred To Contact General Surgery Diagnoses Bloody diarrhea Matthew Camilo MD [facility] [place] [address] [facility] Gen Surgery [address] [place] [address] Referral ID Status Reason Start Date Expiration Date V isits Requested Visits Authorized [id number] Closed Consult, Test & Treat 02/15/2020 02/14/2021 1 1 Encounter Details Date Type Department Care Team (Late st Contact Info) Description 02/15/2020 Orders [place] [address] Matthew Camilo MD [facility] [place] [address] Bloody diarrhea Social History Tobacco Use Types Packs/Day Years [...] 08/15/2024 1:30 PM EDT Appointment Mammography/[place] [address] Tristen Briseno PA [address] [place] [address] Scheduled Referrals Name Type Priority Associated Diagnoses Order Schedule Referral to Colorectal Surgery Outpatient Referral Routine Bloody diarrhea Ordered: 02/15/2020 documented as of this encounter Visit Diagnoses Diagnosis Bloody diarrhea Diarrhea documented in this encounter Care Teams Open Hearth Furnace Operator Helper Relationship Specialty Start Date End Date Tristen Briseno PA [address] [place] [address] PCP - General Family Medicine 02/15/20 documented as of this encounter
--- OUTSIDE RECORDS SUMMARY | 2024-06-02 17:30 | XMS_ITS | Encounter Summary ---
[place] [address] Care Team Providers Care Rubber Stamp Assembler Name Role Phone Unknown Primary Care Provider Unavailabl e Encounter Details Date Type Department Care Team (Late st Contact Info) Description 01/23/2020 Telephone [place] [phone] Chloe Knott, CCMA Social History Tobacco Use Types Packs/Day Years [...] 08/15/2024 1:30 PM EDT Appointment Mammography/[place] [address] Tristen Briseno PA [address] [place], [place] [address] documented as of this encounter Visit Diagnoses Not on filedocumented in this encounter Care Teams Rubber Stamp Assembler Relationship Specialty Start Date End Date Unknown None PCP - General 01/17/20 02/14/20 documented as of this encounter
--- OUTSIDE RECORDS SUMMARY | 2024-06-02 17:30 | XMS_ITS | Encounter Summary ---
Author Organization [place] [address] Care Team Providers Care Welding Equipment Repairer Name Role Phone Geovanna Spencer MD Primary Care Provider [phone] Encounter Details Date Type Department Care Team (Latest Contact Info) Description 03/30/2012 12:39 PM EDT - 03/30/2012 4:12 PM EDT Hospital Encounter [place] [address] Miguelina Thomas MD [facility] [address] GASTRO[place] [address] Discharge Disposition: Home Social History Tobacco Use [...] Sign Reading Time Taken Comments Blood Pressure 97/56 03/30/2012 2:08 PM EDT Pulse 64 03/30/2012 2:08 PM EDT Temperature 36.6 ??C (97.9 ??F) 03/30/2012 1:17 PM ED T Respiratory Rate 16 03/30/2012 2:08 PM EDT Oxygen Saturation 100% 03/30/2012 2:08 PM EDT Inhaled Oxygen Concentration - - Weight - - Height - - Body Mass Index - - documented in this encounter Discharge Instructions * Discharge Instructions* Belia Cantu RN - 03/30/2012 2:58 PM EDT You may have received medication before and/or during your procedure which effects judgement and reaction time. Do not drive, operate machinery, drink alcoholic beverages, or make important decisions for 24 hours. Be careful on stairs, as you may be unsteady on your feet. You may eat a regular diet as tolerated. Do not smoke if you are alone. IV site-- slight redness or tenderness is normal. You may use a warm compress. If tenderness and redness increases for foul drainage occurs please contact your M.D. Please call [phone] before 5pm with problems, questions or concerns. After 5pm call [phone] and ask to speak with the real estate manager eight section blower. Discharge instructions reviewed with patient who expresses's understanding. * Attachments The following attachments cannot be sent through Care Everywhere. * COLONOSCOPY: WHAT TO EXPECT AT HOME (YI) documented in this encounter Medications at Time of Discharge Medication Sig Dispensed Refills Start Date End Date dicyclomine (BENTYL) 10 mg capsule Take 10 mg by mouth 4 times daily (before meals and nightly). mesalamine (ASACOL) 400 mg EC tablet 09/05/2004 02/15/2020 documented as of this encounter H&P Notes * Miguelina Thomas MD - 03/30/2012 2:02 PM EDT Gastroenterology & Hepatology Pre-Procedure History and Physical Procedure: Colonoscopy Indication: Hematochezia History of Present Illness: Pleasant 36F with 4 weeks of loose stools - 4 loose brown stools mixed with red blood. Does have lower abdominal cramping as well. No weight loss, fevers Years ago was seen at a local ER for symptoms, prescribed Asacol which resolved the hematochezia. Has been off this for a few years PMH: GERD Medications: No current facility-administered medications on file prior to encounter. Current outpatient prescriptions ordered prior to encounter Medication Sig Dispense Refill ??? mesalamine (ASACOL) 400 mg EC tablet Allergies: Allergies Allergen Reactions ??? Promethazine ??? Biaxin (Clarithromycin) Nausea And Vomiting Social History: Lives in [place], [place]. Works at [employer]. Smokes 0.5ppd. No etoh Family History: Parent with ?IBD Exam: Patient Vitals in the past 24 hrs: BP Temp Pulse Resp SpO2 03/30/12 1317 119/72 mmHg 36.6 ??C (97.9 ??F) 98 16 100 % Airway examined Chest- clear Heart- RRR, nl s1, s2 Abdomen- normal bowel sounds, soft, non tender Assessment and Plan: Pleasant 36F with hematochezia and diarrhea for 4 weeks. Will proceed with colonoscopy. Anesthesia assistance Risks and benefits of the procedure were discussed with the patient. Consent has been signed. documented in this encounter Miscellaneous Notes * Miscellaneous - Provider, Scanning - 03/30/2012 9:49 PM EDT * Miscellaneous - Provider, Scanning - 03/30/2012 9:41 PM EDT * Op Note - Miguelina Thomas MD - 03/30/2012 4:42 PM EDT Full procedure note is documented under the Procedure section of eDH. * Miscellaneous - Provider, Scanning - 03/30/2012 1:07 PM EDT documented in this encounter Plan of Treatment Upcoming Encounters Date Type Department Care Team (Late st Contact Info) Description 08/15/2024 1:30 PM EDT Appointment Mammography/[place] [address] Tristen Briseno PA [address] [place] [address] documented as of this encounter Procedures Procedure Name Priority Date/Time Associated Diagnosis Comments SURGICAL PATHOLOGY REPORT Routine 03/30/2012 5:19 PM EDT SPECIMEN TO PATHOLOGY Routine 03/30/2012 3:00 PM EDT SPECIMEN TO PATHOLOGY Routine 03/30/2012 3:00 PM EDT SPECIMEN TO PATHOLOGY Routine 03/30/2012 3:00 PM EDT SPECIMEN TO PATHOLOGY Routine 03/30/2012 3:00 PM EDT COLONOSCOPY, POLYPECTOMY, REMOVAL LESION BY SNARE (WRVU 4.57) 03/30/2012 2:07 PM EDT bloody diarrhea, melena consult COLONOSCOPY, DIAGNOSTIC (WRVU 3.26) 03/30/2012 2:07 PM EDT bloody diarrhea, melena consult COLONOSCOPY Routine 03/30/2012 1:53 PM EDT documented in this encounter Results * SURGICAL PATHOLOGY REPORT (03/30/2012 5:19 PM EDT) Surgical Pathology Report ? [facility] ? Provider: ?? MIGUELINA THOMAS ?Pt. Name: ?? DICKSON MILIAN ? Acc #: ?[id number] ?Pt. ? Col Date: ?? 03/30/2012 ?/Sex: ?1975,(36 years),Female ? Rec Date: ?? 03/30/2012 ?LOC: ?4T ? SURGICAL PATHOLOGY ? ---Pathologic Diagnosis--- ? A - Transverse colon, polypectomy: ? Tubular adenoma. ? B - Ascending colon, polypectomy: ? Hyperplastic polyp. ? C - Rectum, polypectomy: ? Fragments of hyperplastic polyp. ? D - Random colon, biopsies: ? Colonic mucosa, negative for diagnostic abnormality. ?CR-0, CR-PX ? 03/31/12 ? BJM ? 03/31/12 Verified by: ? Davey Marsh MD ? Pathologist ? (Electronic Signature) ? The attending pathologist whose signature appears on this report has ? reviewed all diagnostic slides and has edited the gross and/or ? microscopic portion of the report in rendering the final pathologic ? diagnosis. ? ---Microscopic Description--- ? Slides reviewed, microscopic description not recorded. ? ---Gross Description--- ? A - Labeled/Fixative : Transverse polyp, formalin. ? Qty/Size/Weight: ?Single, 0.3 cm. ? Tissue Description: ?? Soft, almaguer tissue. ? Sections/Process ing: ??(T1) ? B - Labeled/Fixative : Ascending polyp, formalin. ? Qty/Size/Weight: ?Two, averaging 0.3 cm. ? Tissue Description: ?? Soft, almaguer and red tissues. ? Sections/Process ing: ??(T1) ? C - Labeled/Fixative : Three rectal polyps, formalin. ? Qty/Size/Weight: ?Two, averaging 0.2 cm. ? Tissue Description: ?? Soft, almaguer tissues. ? Sections/Process ing: ??(T1) ? [facility] ? Provider: ?? MIGUELINA THOMAS ?Pt. Name: ?? DICKSON MILIAN ? Acc #: ?[id number] ?Pt. ? Col Date: ?? 03/30/2012 ?/Sex: ?1975,(36 years),Female ? Rec Date: ?? 03/30/2012 ?LOC: ?4T ? SURGICAL PATHOLOGY ? D - Labeled/Fixative : Random colon, formalin. ? Qty/Size/Weight: ?Five, ranging from 0.1 cm to 0.4 cm in ? greatest dimension. ? Tissue Description: ?? Soft, almaguer tissues. ? Sections/Process ing: ??(T1) ??vms/SNS ? ---Clinical Information--- ? Specimen Submitted: ? A - Transverse polyp ? B - Ascending polyp ? C - Three rectal polyps ? D - Random colon ? Clinical History/Diagnosi s: ? Diarrhea CERNER MILLENNIUM 03/30/2012 5:19 PM EDT Miguelina Thomas MD PATHOLOGY/CYTOLOGY O SHEA Performing Organization Address [facility] de Phone Number NASRIN SOLISENNIUM * Specimen to Pathology (surgical or derm) (03/30/2012 3:00 PM EDT) AP Specimen 03/30/2012 3:00 PM EDT 03/30/2012 3:00 PM EDT Narrative NASRIN MILLENNIUM - 03/30/2012 3:00 PM EDT Specimen requisition ordered. ??Separate Pathology report to follow Miguelina Thomas MD PATHOLOGY/CYTOLOGY O SHEA Performing Organization Address [facility] de Phone Number NASRIN BUTT * Specimen to Pathology (surgical or derm) (03/30/2012 3:00 PM EDT) AP Specimen 03/30/2012 3:00 PM EDT 03/30/2012 3:00 PM EDT Narrative NASRIN BUTT - 03/30/2012 3:00 PM EDT Specimen requisition ordered. ??Separate Pathology report to follow Miguelina Thomas MD PATHOLOGY/CYTOLOGY O SHEA Performing Organization Address [facility] de Phone Number NASRIN BUTT * Specimen to Pathology (surgical or derm) (03/30/2012 3:00 PM EDT) AP Specimen 03/30/2012 3:00 PM EDT 03/30/2012 3:00 PM EDT Narrative NASRIN BUTT - 03/30/2012 3:00 PM EDT Specimen requisition ordered. ??Separate Pathology report to follow Miguelina Thomas MD PATHOLOGY/CYTOLOGY O SHEA Performing Organization Address [facility] de Phone Number NASRIN BUTT * Specimen to Pathology (surgical or derm) (03/30/2012 3:00 PM EDT) AP Specimen 03/30/2012 3:00 PM EDT 03/30/2012 3:00 PM EDT Narrative NASRIN BUTT - 03/30/2012 3:00 PM EDT Specimen requisition ordered. ??Separate Pathology report to follow Miguelina Thomas MD PATHOLOGY/CYTOLOGY Yocasta VALDIVIA Performing Organization Address [facility] Co de Phone Number NASRIN BUTT * COLONOSCOPY (03/30/2012 1:53 PM EDT) COLONOSCOPY [facility] Endoscopy Patient Name: Dickson Milian ? Procedure Date: 03/30/2012 1:53 PM ? Date of : 1975 ? Age: 36 ? Order #: [id number] ? Procedure: ? Colonoscopy Indications: ? Hematochezia Providers: ? Miguelina Thomas MD, Arielle Molina, ? RN, Ashley Logan, Garment Manufacturer Referring : ?Geovanna Spencer MD, Jeanette Reza, ? MD Medicines: ? Monitored Anesthesia Care Complications: ? No immediate complications. Procedure: ? Pre-Anesthesia Assessment: ? - Prior to the procedure, a History ? and Physical was performed, and ? patient medications and allergies ? were reviewed. The patient is ? competent. The risks and benefits of ? the procedure and the sedation ? options and risks were discussed with ? the patient. All questions were ? answered and informed consent was ? obtained. Patient identification and ? proposed procedure were verified by ? the physician and the nurse in the ? procedure room. Mental Status ? Examination: alert and oriented. ? Airway Examination: normal ? oropharyngeal airway and neck ? mobility. Respiratory Examination: ? clear to auscultation. CV ? Examination: normal. Prophylactic ? Antibiotics: The patient does not ? require prophylactic antibiotics. ? Prior Anticoagulants: The patient has ? taken no previous anticoagulant or ? antiplatelet agents. ASA Grade ? Assessment: II - A patient with mild ? systemic disease. After reviewing the ? risks and benefits, the patient was ? deemed in satisfactory condition to ? undergo the procedure. The anesthesia ? plan was to use monitored anesthesia ? care (MAC). Immediately prior to ? administration of medications, the ? patient was re-assessed for adequacy ? to receive sedatives. The heart rate, ? respiratory rate, oxygen saturations, ? blood pressure, adequacy of pulmonary ? ventilation, and response to care ? were monitored throughout the ? procedure. The physical status of the ? patient was re-assessed after the ? procedure. ? The procedure, indications, benefits, ? risks and alternatives were explained ? to the patient. Specifically ? discussed were potential ? complications including, but not ? limited to, bleeding, perforation, ? infection, missing a cancer, and ? adverse medication reactions. The ? patient was placed in the left ? lateral decubitus position, and a ? digital rectal exam was performed. ? The [place] 2011 was inserted in ? the anus and under direct ? visualization, advanced to 10 cm into ? the ileum. Careful inspection was ? made as the colonoscope was ? withdrawn. The colonoscopy was ? performed without difficulty. The ? patient tolerated the procedure well. ? The quality of the bowel preparation ? was good. ? Findings: ? The terminal ileum appeared normal. A sessile polyp ? was found in the transverse colon. The polyp was 2 mm ? in size. The polyp was removed with a cold biopsy ? forceps. Resection and retrieval were complete. A ? sessile polyp was found in the ascending colon. The ? polyp was 6 mm in size. The polyp was removed with a ? cold snare. Resection and retrieval were complete. ? Three benign appearing flat polyps were found in the ? rectum. The polyps were diminutive in size. These ? polyps were removed with a cold biopsy forceps. ? Resection and retrieval were complete. Internal ? hemorrhoids were found during retroflexion. Normal ? mucosa was found in the entire colon. Biopsies were ? taken with a cold forceps from the entire colon for ? evaluation of microscopic colitis. ? Impression: ?- The examined portion of the ileum ? was normal. ? - One 2 mm polyp in the transverse ? colon. Resected and retrieved. ? - One 6 mm polyp in the ascending ? colon. Resected and retrieved. ? - Three benign appearing diminutive ? polyps in the rectum. Resected and ? retrieved. ? - Internal hemorrhoids. ? - No endoscopic evidence of ? inflammatory bowel disease. Recommendation: ?- Await pathology results. ? - Imodium 2 tablets by mouth daily. ? Can take an extra tablet after ? diarrhea. ? - Discharge patient to home. ? _ Miguelina Thomas MD 03/30/2012 3:05 PM Number of Addenda: 0 Note Initiated On: 03/30/2012 1:53 PM PROVATION 03/30/2012 1:53 PM EDT Geovanna Spencer MD GENERAL SURGICAL ORD ERABLES PROVATION documented in this encounter Visit Diagnoses Not on filedocumented in this encounter Active and Recently Administered Medications Care Teams Welding Equipment Repairer Relationship Specialty Start Date End Date Geovanna Spencer MD [address] [place] [address] PCP - General 04/22/10 01/20/16 documented as of this encounter
--- OUTSIDE RECORDS SUMMARY | 2024-06-02 17:30 | XMS_ITS | Encounter Summary ---
Author Organization [facility] Address [address] [place] [address] Care Team Providers Care Golf Course Starter Name Role Phone Md ALEJANDRO Dunaway Primary Care Provider Dez wood Encounter Details Date Type Department Care Team (Late st Contact Info) Description 02/10/2016 Results Only [facility] [phone] Luis Plummer PA-C [address] [place] [id number] Social History Tobacco Use Types Packs/Day Years [...] Name Priority Date/Time Associated Diagnosis Comments PAP TEST- RESULT ONLY Routine 02/10/2016 0:00 EDT documented in this encounter Results * PAP TEST- RESULT ONLY (02/10/2016 0:00 EDT) Pathology Report: CYTOPATHOLOGY REPORT Reports generated via electronic interface contain original data; however they are lacking the format of the original report. Caution should be taken when reading/interpreti ng unformatted reports. Name: ? DICKSON MILIAN ? Accession #: ? [id number] : ? 1975 (Age: 40) ??F ?Collect Date: ? 02/10/2016 Location: ? [facility] ? Receive Date: ? 02/12/2016 Provider: ?LUIS PLUMMER PA-C Copy to: ? Specimen/Source: ?Pap Test, Cervix/Endocervix, ThinPrep Imaging System with manual evaluation Last Menstrual Period: ? 02/06/16 Hormonal/Contracep tive Status: ? None Previous Gynecologic Pathology: ? None: no hx abn PAP ? SPECIMEN ADEQUACY ? Satisfactory for Evaluation - transformation zone component present GENERAL CATEGORIZATION ? Negative for Intraepithelial Lesion or Malignancy INTERPRETATION ? Shift in cale present suggestive of bacterial vaginosis. ? Document reviewed and electronically signed by: ? TRACY Camargo(ASCP) ? Report Date: ??02/13/2016 14:21 End of Report [facility] 02/10/2016 02/12/2016 us Luis Plummer PA-C PATHOLOGY ORDERABLES Fin al Result [facility] [address] [place] [address] documented in this encounter Visit Diagnoses Not on filedocumented in this encounter Care Teams Golf Course Starter Relationship Specialty Start Date End Date Md Dunaway MD PCP - General 04/23/14 02/12/16 documented as of this encounter
--- OUTSIDE RECORDS SUMMARY | 2024-06-02 17:30 | XMS_ITS | Encounter Summary ---
Author Organization [facility] [place] [address] Care Team Providers Care Newspaper Or Periodical Editor Name Role Phone Tristen Briseno Primary Care Provider [phone] Encounter Details Date Type Department Care Team (Late st Contact Info) Description 11/17/2016 12:05 AM EDT Ancillary Procedure Radiology Library at [facility] [place] [address] Tristen Briseno PA [address] [place], [place] [id number] Social History Tobacco Use Types Packs/Day Years [...] 08/15/2024 1:30 PM EDT Appointment Mammography/DXA at [facility] [place] [address] Tristen Briseno PA [address] [place], [place] [address] documented as of this encounter Procedures Procedure Name Priority Date/Time Associated Diagnosis Comments FILM LIBRARY STORAGE ONLY MAMMO Routine 11/17/2016 12:05 AM EDT documented in this encounter Results * Film Library- Storage Only Mammo (11/17/2016 12:05 AM EDT) Narrative RAD - 03/31/2021 2:59 PM EDT This exam is auto-finalizing. It's purpose is for storage only. Tristen WHITE IMG FILM LIBRARY O RDERABLES [place], [place] documented in this encounter Visit Diagnoses Not on filedocumented in this encounter Care Teams Newspaper Or Periodical Editor Relationship Specialty Start Date End Date Tristen Briseno PA [address] [place] [address] PCP - General Family Medicine 01/21/16 01/16/20 documented as of this encounter
--- OUTSIDE RECORDS SUMMARY | 2024-06-02 17:30 | XMS_ITS | Encounter Summary ---
[place] [address] Care Team Providers Care Manager Social Media Name Role Phone Geovanna Spencer MD Primary Care Provider [phone] Encounter Details Date Type Department Care Team (Late st Contact Info) Description 03/30/2012 2:07 PM EDT Anesthesia Event [place] [address] Ken Vences MD Lagoy, Jacqueline S, MD Anesthesia Record Procedure Summary Procedure Name Responsible Anesthesiologist Anesthesia Start Time Anesthesia Stop Time COLONOSCOPY, DIAGNOSTIC (WRVU 3.26) (Trunk) Ken Vences MD 03/30/12 1407 03/30/12 1454 Events Date Time Event Comment 03/30/2012 1407 Start 1454 Stop 1630 Meds * Agents No agents on file. * Blood No blood administrations on file. Lines, Drains, and Airways Type Details Placement Removal (RETIRED) Peripheral IV Line - Single Lumen 03/30/12; 1323; 03/30/12; 1547 03/30/12 1323 by Renetta Patrick RN 03/30/12 1547 by Jeanette Jean RN documented in this encounter Social History [...] OR Notes * Anesthesia Postprocedure Evaluation - Isaac Layne MD - 03/30/2012 2:52 PM EDT Patient: Loyda Milian Procedure(s) Performed: Procedure(s): COLONOSCOPY, DIAGNOSTIC COLONOSCOPY, POLYPECTOMY, REMOVAL LESION BY SNARE Patient location: PACU Post-op pain: Adequate analgesia Post-op nausea: no nausea or vomiting Last Vitals: Filed Vitals: 03/30/12 1317 BP: 119/72 Pulse: 98 Temp: 36.6 ??C (97.9 ??F) Resp: 16 Post-op cardiovascular and respiratory status: is stable Level of consciousness: awake, alert and oriented Complications: no apparent complications and tolerated the procedure well Fluid Status: normal * Anesthesia Preprocedure Evaluation - Ken Vences MD - 03/30/2012 1:40 PM EDT Today I evaluated Loyda Milian a 36 y.o. female. Procedure(s): COLONOSCOPY, DIAGNOSTIC Patient Active Problem List Diagnoses ??? Smoker ??? IBS (irritable bowel syndrome) ??? Bloody diarrhea Past Medical History Diagnosis Date ??? Skull fracture with hemmorhage No past surgical history on file. History Substance Use Topics ??? Smoking status: Current Everyday Smoker ??? Smokeless tobacco: Not on file ??? Alcohol Use: No Allergies Allergen Reactions ??? Promethazine ??? Biaxin (Clarithromycin) Nausea And Vomiting Medications: MAR and/or home medications have been reviewed. Physical Exam: There were no vitals filed for this visit. There is no height or weight on file to calculate BMI. Airway Assessment: Mallampati: I TM distance: >3 FB Neck ROM: full Cardiovascular Assessment: Rhythm: regular Rate: normal cardiovascular exam normal Pulmonary Assessment: pulmonary exam normal Dental Assessment: - normal exam Misc Assessment: Patient is wearing No contact(s). IV access: Peripheral line Anesthesia Plan: ASA 2 MAC with intravenous induction 36y/o thin F smoker with bloody diarrhea for colonoscopy. +GERD, poorly controlled. Plan: Bicitra PO +IV zofran preop. Mac-propofol infusion Informed Consent: Anesthetic plan and risks discussed with patient. Plan discussed with REGISTRATION SCHEDULING SPECIALIST, resident and attending. [facility] Assessment: documented in this encounter Miscellaneous Notes * Addendum Note - Renetta Olivo - 03/31/2012 11:08 AM EDT Addendum created 03/31/12 1108 by Renetta Olivo Modules edited:Anesthesia Events, Anesthesia Responsible Staff documented in this encounter Plan of Treatment Upcoming Encounters Date Type Department Care Team (Late st Contact Info) Description 08/15/2024 1:30 PM EDT Appointment Mammography/[place] [address] Tristen Briseno PA [address] [place] [address] documented as of this encounter Visit Diagnoses Not on filedocumented in this encounter Care Teams Manager Social Media Relationship Specialty Start Date End Date Geovanna Spencer MD [address] [place] [address] PCP - General 04/22/10 01/20/16 documented as of this encounter
--- OUTSIDE RECORDS SUMMARY | 2024-06-02 17:30 | XMS_ITS | Encounter Summary ---
[place] [address] Care Team Providers Care Insurance Sales Professional Name Role Phone Tristen Briseno Primary Care Provider [phone] Encounter Details Date Type Department Care Team (Latest Contact Info) Description 08/30/2023 Travel Social History Tobacco Use Types Packs/Day [...] 08/15/2024 1:30 PM EDT Appointment Mammography/[place] [address] Tristen Briseno PA [address] [place] [address] documented as of this encounter Visit Diagnoses Not on filedocumented in this encounter Care Teams Insurance Sales Professional Relationship Specialty Start Date End Date Tristen Briseno PA [address] [place] [address] PCP - General Family Medicine 02/15/20 documented as of this encounter
--- OUTSIDE RECORDS SUMMARY | 2024-06-02 17:30 | XMS_ITS | Encounter Summary ---
[place] [address] Care Team Providers Care Printed Circuit Boards Laminator Name Role Phone Tristen Briseno Primary Care Provider [phone] Encounter Details Date Type Department Care Team (Latest Contact Info) Description 07/08/2022 9:08 AM EST - 07/08/2022 11:59 PM EST Hospital Encounter Mammography/[place] [address] Tristen Briseno PA [address] [place] [address] Encounter for screening mammogram for breast cancer Discharge Disposition: Home Social History Tobacco Use [...] 08/15/2024 1:30 PM EDT Appointment Mammography/[place] [address] Tristen Briseno PA [address] [place] [address] documented as of this encounter Procedures Procedure Name Priority Date/Time Associated Diagnosis Comments MAMMO SCREENING CAD AND JOSE F BILATERAL Routine 07/08/2022 9:27 AM EST Encounter for screening mammogram for breast cancer documented in this encounter Results * Mammo Screening Cad and Jose [...] signed by: CHLOÉ STILL MD Tristen WHITE IMG MAMMO ORDERABL ES documented in this encounter Visit Diagnoses Diagnosis Encounter for screening mammogram for breast cancer documented in this encounter Care Teams Printed Circuit Boards Laminator Relationship Specialty Start Date End Date Tristen Briseno PA [address] [place] [address] PCP - General Family Medicine 02/15/20 documented as of this encounter
--- OUTSIDE RECORDS SUMMARY | 2024-06-02 17:30 | XMS_ITS | Encounter Summary ---
Author Organization [facility] Address [address] [place] [address] Care Team Providers Care Licensed Physical Therapist Name Role Phone Unavailable Primary Care Provider Unavailabl e Encounter Details Date Type Department Care Team (Late st Contact Info) Description 07/22/2009 Results Only [facility] ([facility]) [address] [place] [address] Chloe Mckeon, [facility] [address] [place] [address] Social History Tobacco Use Types [...] Priority Date/Time Associated Diagnosis Comments CYTOPATHOLOGY Routine 07/22/2009 0:00 EST documented in this encounter Results * CYTOPATHOLOGY (07/22/2009 0:00 EST) Pathology Report: CYTOPATHOLOGY REPORT ? Reports generated via electronic interface contain original data; ? however they are lacking the format of the original report. ? Caution should be taken when reading/interpreti ng unformatted reports. ? Name: ? DICKSON MILIAN ? Accession #: ? [id number] ? : ? 1975 (Age: 33) ??F ?Collect Date: ? 07/22/2009 ? Location: ? [facility] ? Receive Date: ? 07/23/2009 ? Provider: ?CHLOE ADOLFO MICROFILM TECHNICIAN ? Copy to: ? Specimen/Source: ?Pap Test, Cervix/Endocervix, ThinPrep Imaging System ? with manual evaluation ? Last Menstrual Period: ? 02/15/10 ? Other: ? HPVA - HPV testing requested if ASC-US on the current ThinPrep Pap test. ? SPECIMEN ADEQUACY ? Satisfactory for Evaluation ? - transformation zone component present ? GENERAL CATEGORIZATION ? Negative for Intraepithelial Lesion or Malignancy ? Document reviewed and electronically signed by: ? Sue Andreas, [place](ASCP) ? Report Date: ??07/24/2009 10:00 ? End of Report ? NAVA MONSON 07/22/2009 07/23/2009 us Chloe Mckeon MICROFILM TECHNICIAN PATHOLOGY ORDERABLES Final R esult NAVA MONSON [address] [place] [address] documented in this encounter Visit Diagnoses Not on filedocumented in this encounter
--- OUTSIDE RECORDS SUMMARY | 2024-06-02 17:30 | XMS_ITS | Encounter Summary ---
[place] [address] Care Team Providers Care Specialist Wound Care Name Role Phone Tristen Briseno Primary Care Provider +1- [phone] Encounter Details Date Type Department Care Team (Latest Contact Info) Description 07/08/2022 Travel Social History Tobacco Use Types Packs/Day [...] 08/15/2024 1:30 PM EDT Appointment Mammography/[place] [address] Tristen Briseno PA [address] [place], [place] [id number] documented as of this encounter Visit Diagnoses Not on filedocumented in this encounter Care Teams Specialist Wound Care Relationship Specialty Start Date End Date Tristen Briseno PA [address] [place] [address] PCP - General Family Medicine 02/15/20 documented as of this encounter
--- OUTSIDE RECORDS SUMMARY | 2024-06-02 17:30 | XMS_ITS | Encounter Summary ---
Author Organization [facility] [place] [address] Care Team Providers Care Bracer Name Role Phone Tristen Briseno Primary Care Provider +1- [phone] Encounter Details Date Type Department Care Team (Late st Contact Info) Description 03/20/2021 Ancillary Procedure Radiology Library [place] [address] Tristen Briseno PA [address] [place] [address] Social History Tobacco Use Types [...] 08/15/2024 1:30 PM EDT Appointment Mammography/DXA [place] [address] Tristen Briseno PA [address] [place] [address] documented as of this encounter Procedures Procedure Name Priority Date/Time Associated Diagnosis Comments FILM LIBRARY STORAGE ONLY MAMMO Routine 03/20/2021 12:00 AM EDT documented in this encounter Results * Film Library- Storage Only Mammo (03/20/2021 12:00 AM EDT) Narrative RAD - 03/31/2021 2:47 PM EDT This exam is auto-finalizing. It's purpose is for storage only. Tristen WHITE IMKayce FILM LIBRARY O RDERABLES [place], [place] documented in this encounter Visit Diagnoses Not on filedocumented in this encounter Care Teams Bracer Relationship Specialty Start Date End Date Tristen Briseno PA [address] [place] [address] PCP - General Family Medicine 02/15/20 documented as of this encounter
--- OUTSIDE RECORDS SUMMARY | 2024-06-02 17:30 | XMS_ITS | Encounter Summary ---
[place] [address] Care Team Providers Care Pile Driver Operator Helper Name Role Phone Tristen Briseno Primary Care Provider +1- [phone] Encounter Details Date Type Department Care Team (Late st Contact Info) Description 03/31/2021 Telephone [place] [phone] Renetta Bruno Social History Tobacco Use Types [...] Telephone Encounter - Renetta Bruno - 03/31/2021 11:42 AM EDT Loyda Solis Maicol 1975 [id number] Referring provider: CINDY Augustine Date of Referral: 03.28.2021 Please review outside breast imaging dated: 03.27.2021 Reason for exam and clinical history: Left breast oval nodule 2 o'clock Category: 4 Questions to be answered: ? More imaging, ? BX Sending Institution: [facility] Patient would like treatment at: [facility] Call pt at: documented in this encounter Plan of Treatment Upcoming Encounters Date Type Department Care Team (Late st Contact Info) Description 08/15/2024 1:30 PM EDT Appointment Mammography/[place] [address] Tristen Briseno PA [address] [facility] [place] [address] documented as of this encounter Visit Diagnoses Not on filedocumented in this encounter Care Teams Pile Driver Operator Helper Relationship Specialty Start Date End Date Tristen Briseno PA [address] [place] [address] PCP - General Family Medicine 02/15/20 documented as of this encounter
--- OUTSIDE RECORDS SUMMARY | 2024-06-02 17:30 | XMS_ITS | Encounter Summary ---
[place] [address] Care Team Providers Care Manager Rn Case Name Role Phone Tristen Briseno Primary Care Provider +1- [phone] Reason for Visit * Reason Onset Date Comments Appointment 06/09/2019 Cancellation Encounter Details Date Type Department Care Team (Late st Contact Info) Description 06/09/2019 Telephone Cardiology at [address] [phone] Medina Jessica Appointment (Cancellation) Social History Tobacco Use Types Packs/Day Years [...] encounter Miscellaneous Notes * Telephone Encounter - Medina Jessica - 06/09/2019 10:53 AM EST Caller and relationship to patient (if other than patient): Elin from Dr. Briseno's office Message or Reason for Call: Elin called to cancel the referral and cancel any subsequent appointments. Patient is going elsewhere. Appt Needed and Reason: n/a Provider: Dr. Barry documented in this encounter Plan of Treatment Upcoming Encounters Date Type Department Care Team (Late st Contact Info) Description 08/15/2024 1:30 PM EDT Appointment Mammography/[place] [address] Tristen Briseno PA [address] [place] [address] documented as of this encounter Visit Diagnoses Not on filedocumented in this encounter Care Teams Manager Rn Case Relationship Specialty Start Date End Date Tristen Briseno PA [address] [place] [address] PCP - General Family Medicine 01/21/16 01/16/20 documented as of this encounter
--- OUTSIDE RECORDS SUMMARY | 2024-06-02 17:30 | XMS_ITS | Encounter Summary ---
Author Organization [facility] Address [address] [place] [address] Care Team Providers Care Pattern Generator Operator Name Role Phone Unavailable Primary Care Provider Unavailabl e Encounter Details Date Type Department Care Team (Latest Contact Info) Description 04/19/2014 7:47 EST - 04/19/2014 23:59 EST Hospital Encounter [address] [address] Unknown, Provider, MD Discharge Disposition: Home or Self Care Social History Tobacco Use Types Packs/Day Years Used Date Smoking Tobacco: Never Assessed Comments Unknown Sex and Gender Information Value Date Recorded Sex Assigned at Not on file Legal Sex Female 18:20 EST Gender Identity Not on file Sexual Orientation Not on file documented as of this encounter Discharge Disposition Disposition Code Departure Means Destination Home or Self Assisted documented in this encounter Plan of Treatment Not on file documented as of this encounter Visit Diagnoses Not on filedocumented in this encounter
--- OUTSIDE RECORDS SUMMARY | 2024-06-02 17:30 | XMS_ITS | Encounter Summary ---
Author Organization [facility] Address [address] [place] [address] Care Team Providers Care Production Expert Name Role Phone Unavailable Primary Care Provider Unavailabl e Encounter Details Date Type Department Care Team (Late st Contact Info) Description 04/19/2014 Results Only [facility] [phone] Roque Alvares, [address] [place], [place] [id number] Social History Tobacco Use Types Packs/Day Years [...] Date/Time Associated Diagnosis Comments SURGICAL PATHOLOGY Routine 04/19/2014 19 :29 EST documented in this encounter Results * SURGICAL PATHOLOGY (04/19/2014 19:29 EST) Pathology Report: SURGICAL PATHOLOGY REPORT Reports generated via electronic interface contain original data; however they are lacking the format of the original report. Caution should be taken when reading/interpret ing unformatted reports. Name: ? DICKSON MILIAN ? Accession #: ? [id number] ? : ? 1975 (Age: 38) ??F ? Collect Date: ? 04/19/2014 ? Location: ? [facility] ? Receive Date: ? 04/19/2014 ? Provider: ROQUE ALVARES DO Copy to: CORRINA CHAVIS MD ? Final Pathologic Diagnosis: A. TONSIL, RIGHT, TONSILLECTOMY: - Tonsil with reactive lymphoid hyperplasia. 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 B. TONSIL, LEFT, TONSILLECTOMY: - Tonsil with reactive lymphoid hyperplasia. 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 Document reviewed and electronically signed by: AIDEN MEYER MD Report ??Date: 04/23/2014 16:53 By the signature above, the attending physician certifies that he/she has personally conducted a gross and/or microscopic examination of the described specimens and rendered or confirmed the above diagnosis. Specimen(s) Received: A. ??Right tonsil B. ??Left tonsil Clinical History: Chronic tonsillar/pharyng itis, lesion L tonsil; clinical diagnosis code: ??472.1, 305.1, 289.3 Gross Description: A. ?Received in formalin labelled with proper patient identification (initials G, K) and right tonsil is a palatine tonsil (2.4 x 1.5 x 0.6 cm). The mucosa is smooth and glistening with prominent crypts. ?? Serial sections reveal almaguer and homogeneous tissue without crypts or definitive nodules. ??Two apprenticeship training representative sections are submitted as A1. B. ?Received in formalin labelled with proper patient identification (initials G, K) and left tonsil is a palatine tonsil (2.3 x 1.6 x 1.0 cm). The mucosa is smooth and glistening with prominent crypts. ?? Serial sections reveal lobular homogeneous tissue without abnormality. ??Two apprenticeship training representative sections are submitted as B1. Yola Mckenzie 04/20/2014 08:28 AM End of Report [facility] 04/19/2014 19:2 9 EST 04/19/2014 19:29 EST us Roque Alvares DO PATHOLOGY ORDERABLES Fi nal Result [facility] [address] [place] [address] documented in this encounter Visit Diagnoses Not on filedocumented in this encounter
--- OUTSIDE RECORDS SUMMARY | 2024-06-02 17:30 | XMS_ITS | Encounter Summary ---
Author Organization [facility] Address [address] [place] [address] Care Team Providers Care Wheel Buffer Name Role Phone Md ALEJANDRO Dunaway Primary Care Provider Dez wood Encounter Details Date Type Department Care Team (Latest Contact Info) Description 02/07/2016 10:50 EDT - 02/07/2016 23:59 EDT Hospital Encounter [address] [address] Unknown, Provider, Discharge Disposition: Home or Self Care Social [...] Code Departure Means Destination Home or Self Retirement documented in this encounter Plan of Treatment Not on file documented as of this encounter Visit Diagnoses Not on filedocumented in this encounter Care Teams Wheel Buffer Relationship Specialty Start Date End Date Md Dunaway MD PCP - General 04/23/14 02/12/16 documented as of this encounter
--- OUTSIDE RECORDS SUMMARY | 2024-06-02 17:30 | XMS_ITS | Encounter Summary ---
Author Organization [facility] [place] [address] Care Team Providers Care Adjustment Supervisor Name Role Phone Tristen Briseno Primary Care Provider [phone] Encounter Details Date Type Department Care Team (Late st Contact Info) Description 02/15/2020 9:15 AM EDT - 02/15/2020 10:45 AM EDT Surgery Operating Room [facility] [place] [id number] Matthew Camilo MD [facility] [place] [address] EGD, UPPER GI ENDOSCOPY (WRVU 2.09) Social History Tobacco Use Types Packs/Day Years [...] Sign Reading Time Taken Comments Blood Pressure 141/70 02/15/2020 7:53 AM EDT Pulse 79 02/15/2020 7:53 AM EDT Temperature 36.2 ??C (97.2 ??F) 02/15/2020 7:53 AM ED T Respiratory Rate 16 02/15/2020 7:53 AM EDT Oxygen Saturation 99% 02/15/2020 7:53 AM EDT Inhaled Oxygen Concentration - - Weight 63.5 kg (140 lb) 02/15/2020 7:53 AM EDT Height 165.1 cm (5' 5) 02/15/2020 7:53 AM EDT Body Mass Index 23.3 02/15/2020 7:53 AM EDT documented in this encounter Discharge Instructions * Discharge Instructions* Rima Carl RN - 02/15/2020 7:47 AM EDT You have just undergone surgery and the following instructions are given to help you have an uneventful recovery: DIET: ??? Avoid alcohol for the next 24 hours, otherwise eat and drink as usual. ACTIVITY ??? On the day of the procedure please have a friend drive you home and escort you into your house.Plan to relax for the next few hours. ??? Do not drive or operate machinery until the day after the procedure. ??? DO NOT make any important personal or business decisions for 24 hours. ??? On the day after your procedure, you may return to your usual activities, unless otherwise instructed. DRIVING RESTRICTIONS: ??? You should not drive until you are pain free and off narcotic pain medication. TREATMENT FOR COMMON AFTER EFFECTS ENDOSCOPY/ERCP ??? Sore throat: this will pass in a day or two. Throat lozenges, cold liquids, or gargling with warm salt water may help to ease the discomfort. ??? Mild abdominal pain and bloating: rest and take only liquids. COLONOSCOPY ??? Mild abdominal pain, bloating or excessive gas: rest and eat lightly. ??? Loose bowel movements: these may occur for the next few days, but should return to normal on their own. ??? Please drink plenty of fluids today, preferably water, to keep yourself well hydrated. DURING REGULAR BUSINESS HOURS CALL YOUR PHYSICIAN AT : (FOR AFTER HOURS CALL [phone] AND ASK FOR PHYSICIAN COVERING FOR YOUR DOCTOR TO BE PAGED) ENDOSCOPY/ERCP ??? Fever or chills ??? Severe abdominal pain or bloating ??? Vomiting blood ??? Difficulty breathing or swallowing ??? Pain in chest ??? Any questions or problems COLONOSCOPY ??? Fever or chills ??? Severe abdominal pain or bloating ??? Heavy rectal bleeding ??? Any questions or problems SMOKING CESSATION INFORMATION: ??? [place] QUITLINE: ??? [place] QUITLINE: ??? [email or web address] If you smoke, stop now! MAKE SURE YOU: ??? Understand these instructions. ??? Will seek medical care if you are feeling poor, or get worse. ??? Will call the office with any questions or concerns at . Nursing information only: ??? Original document to medical records ??? Copy given to patient at discharge ??? Belongings/Valuables returned to patient ??? All questions answered ??? IV and hospital equipment removed from patient as appropriate The above information has been presented or demonstrated. I/we have had the opportunity to ask questions. I/we fully understand the instructions given. I/we have received a copy of this form. documented in this encounter Medications at Time of Discharge Medication Sig Dispensed Refills Start Date End Date ferrous gluconate (Fergon) 324 mg (37.5 mg iron) Tablet Take 324 mg by mouth daily. dicyclomine (BENTYL) 10 mg capsule Take 10 mg by mouth 4 times daily (before meals and nightly). documented as of this encounter Progress Notes * Rima Carl RN - 02/15/2020 11:23 AM EDT Pt had an uneventful recovery. Discharge requirements met. * Penny Rankin RN - 02/15/2020 8:12 AM EDT Pt prepped for colonoscopy, pt states bowel prep went well, pt reporting able to ingest all the required solution, and bowel discharge is completely liquid. Post colonoscopy discharge instructions reviewed with patient who stated understanding. All questions addressed. documented in this encounter H&P Notes * Matthew Camilo MD - 02/15/2020 9:59 AM EDT Patient Name: Loyda Milian Patient Age: 44 y.o. Birthdate: 1975 Admit date: 02/15/2020 Attending Physician: Matthew Camilo MD Gastroenterology and Hepatology Pre-Procedure History and Physical Exam Procedure: EGD: Colonoscopy: Indication: diarrhea Patient Active Problem List Diagnosis Code ??? Smoker F17.200 ??? IBS (irritable bowel syndrome) K58.9 ??? Bloody diarrhea R19.7 EXAM: HEENT: Airway examined, oropharynx clear Mallampati Score: I (soft palate, uvula, fauces, tonsillar pillars visible) LUNGS: Clear to auscultation HEART: Regular rate and rhythm, normal S1, S2 ABDOMEN: Normal bowel sounds, soft, non tender, non distended, A/P Proceed with the planned endoscopic procedure. ASA 1 - Normal health patient Sedation Plan: anesthesia Risks and benefits of the procedure explained to the patient. Consent signed. documented in this encounter Miscellaneous Notes * Op Note - Matthew Camilo MD - 02/15/2020 11:[address] [facility] Operative Note Patient Name: Loyda Milian : [id number] MR#: [id number] Case Date: 02/15/2020 Surgeon: Surgeon(s) and Role: * Matthew Camilo MD - Primary Preoperative diagnosis: Diarrhea, unspecified, gastro-esophageal reflux disease without esophagitis Postoperative diagnosis: Diarrhea, unspecified, gastro-esophageal reflux disease without esophagitis Procedure(s): EGD, UPPER GI ENDOSCOPY COLONOSCOPY, DIAGNOSTIC Please see Provation report for details. documented in this encounter Plan of Treatment Upcoming Encounters Date Type Department Care Team (Late st Contact Info) Description 08/15/2024 1:30 PM EDT Appointment Mammography/[place] [address] Tristen Briseno PA [address] [place] [address] documented as of this encounter Procedures Procedure Name Priority Date/Time Associated Diagnosis Comments SPECIMEN TO PATHOLOGY Routine 02/15/2020 10:57 AM EDT SPECIMEN TO PATHOLOGY Routine 02/15/2020 10:57 AM EDT SPECIMEN TO PATHOLOGY Routine 02/15/2020 10:57 AM EDT SPECIMEN TO PATHOLOGY Routine 02/15/2020 10:57 AM EDT SPECIMEN TO PATHOLOGY Routine 02/15/2020 10:57 AM EDT SURGICAL PATHOLOGY REPORT Routine 02/15/2020 10:29 AM EDT Colonoscopy, Diagnostic (50905) 02/15/2020 10:12 AM EDT Diarrhea, unspecified, gastro-esophageal reflux disease without esophagitis Upper GI Endoscopy, Diagnostic (80649) 02/15/2020 10:12 AM EDT Diarrhea, unspecified, gastro-esophageal reflux disease without esophagitis COLONOSCOPY Routine 02/15/2020 10:00 AM EDT UPPER GI ENDOSCOPY Routine 02/15/2020 9: 59 AM EDT documented in this encounter Results * Specimen to Pathology (02/15/2020 10:57 AM EDT) AP Specimen 02/15/2020 10:5 7 AM EDT 02/15/2020 4:20 PM EDT Narrative [facility] - 02/15/2020 4:20 PM EDT Specimen requisition ordered. ??Separate Pathology report to follow Resulting Agency Comment Spec In Lab / APD Matthew Camilo MD PATHOLOGY/CYTOLOGY O RDERABLES [facility] [place] [address] * Specimen to Pathology (02/15/2020 10:57 AM EDT) AP Specimen 02/15/2020 10:5 7 AM EDT 02/15/2020 4:20 PM EDT Narrative [facility] - 02/15/2020 4:20 PM EDT Specimen requisition ordered. ??Separate Pathology report to follow Resulting Agency Comment Spec In Lab / APD Matthew Camilo MD PATHOLOGY/CYTOLOGY O SHEA Performing Organization Address [facility]/[place] [address] * Specimen to Pathology (02/15/2020 10:57 AM EDT) AP Specimen 02/15/2020 10:5 7 AM EDT 02/15/2020 4:20 PM EDT Narrative [facility] - 02/15/2020 4:20 PM EDT Specimen requisition ordered. ??Separate Pathology report to follow Resulting Agency Comment Spec In Lab / APD Matthew Camilo MD PATHOLOGY/CYTOLOGY O SHEA Performing Organization Address [facility]/[place] [address] * Specimen to Pathology (02/15/2020 10:57 AM EDT) AP Specimen 02/15/2020 10:5 7 AM EDT 02/15/2020 4:20 PM EDT Narrative [facility] - 02/15/2020 4:20 PM EDT Specimen requisition ordered. ??Separate Pathology report to follow Resulting Agency Comment Spec In Lab / APD Matthew Camilo MD PATHOLOGY/CYTOLOGY O SHEA Performing Organization Address [facility] [place] [place] [address] * Specimen to Pathology (02/15/2020 10:57 AM EDT) AP Specimen 02/15/2020 10:5 7 AM EDT 02/15/2020 4:20 PM EDT Narrative [facility] - 02/15/2020 4:20 PM EDT Specimen requisition ordered. ??Separate Pathology report to follow Resulting Agency Comment Spec In Lab / APD Matthew Camilo MD PATHOLOGY/CYTOLOGY O SHEA [facility] [place] [address] * Surgical Pathology Report (02/15/2020 10:29 AM EDT) Final Diagnosis [id number] ? Location: [facility]; [facility]; The signing pathologist has (i) examined the relevant preparation(s) for the specimen(s) and (ii) rendered or confirmed the diagnosis(es). . ?Surgical Pathology DIAGNOSIS A - Rectum, biopsy: Rectal mucosa within normal limits. B - Colon, biopsy: Colonic mucosa within normal limits. C - Colon, biopsy: Colonic mucosa within normal limits. D - Duodenum, biopsy: Duodenal mucosa within normal limits, including preserved villous architecture. E - Rectum, polypectomy: Hyperplastic polyp. CR-PX Electronically signed by: ??Leeroy Lama MD Verified: ??02/20/2020 ?Pathologist Performed at: ??-[facility] Dept. of Pathology, [place], [place] SPECIMEN(S) SUBMITTED A - rectum, biopsy (1) B - colon, biopsy (Multiple) C - colon, biopsy (Multiple) D - duodenum, biopsy (2) E - rectum, excision (1) CLINICAL INFORMATION Diarrhea, GERD SPECIMEN PROCESSING A - Labeled/Fixativ e: Rectum, formalin. Quantity/Size: Five, averaging 0.3 cm. Tissue Description: Soft, almaguer-pink tissues. Sections/Proces sing: Submitted en toto ??in 1 cassette labeled A1. B - Labeled/Fixativ e: Colon, formalin. Quantity/Size: Five, averaging 0.3 cm. Tissue Description: Soft, yellow-almaguer tissues. Sections/Proces sing: Submitted en toto ??in 1 cassette labeled B1. C - Labeled/Fixativ e: Left colon, formalin. Quantity/Size: Five, averaging 0.3 cm. Tissue Description: Soft, yellow tissues. Sections/Proces sing: Submitted en toto ??in 1 cassette labeled C1. D - Labeled/Fixativ e: Duodenum, formalin. Quantity/Size: Four, averaging 0.3 cm. Tissue Description: Soft, red-almaguer tissues. Sections/Proces sing: Submitted en toto ??in 1 cassette labeled D1. E - Labeled/Fixativ e: Rectum, formalin. . SPECIMEN PROCESSING Quantity/Size: Single, 0.3 x 0.3 x 0.2 cm. Tissue Description: Soft, almaguer, polypoid retention tissue. Sections/Proces sing: Submitted en toto ??in 1 cassette labeled E1. ??shb 02/20/2020 3:47 PM EDT [facility] GI Biopsy 02/15/2020 10:2 9 AM EDT 02/15/2020 10:29 AM EDT GI Biopsy 02/15/2020 10:2 9 AM EDT 02/15/2020 10:29 AM EDT GI Biopsy 02/15/2020 10:2 9 AM EDT 02/15/2020 10:29 AM EDT GI Biopsy 02/15/2020 10:2 9 AM EDT 02/15/2020 10:29 AM EDT GI Biopsy 02/15/2020 10:2 9 AM EDT 02/15/2020 10:29 AM EDT Narrative Resulting Agency Comment Spec In Lab / APD Matthew Camilo MD PATHOLOGY/CYTOLOGY O SHEA [facility] [place] [address] * COLONOSCOPY (02/15/2020 10:00 AM EDT) COLONOSCOPY [facility] Endoscopy Procedure Date: 02/15/2020 10:00 AM ? Patient Name: Loyda Milian ? Date of : 1975 ? Age: 44 ? Order #: [id number] ? Instrument Name: [id number] ? Procedure: ? Colonoscopy Indications: ? Chronic [...] ? nurse, the anesthesiologist and the ? oracle dba. The procedure was ? verified in the [...] Procedure Code(s): ?? --- Professional --- ? 22434, Colonoscopy, flexible; with ? removal of tumor(s), polyp(s), or ? other lesion(s) by snare technique ? 73118, 59, Colonoscopy, flexible; ? with biopsy, single or multiple CPT copyright 2019 [employer]. All rights reserved. The codes documented in this report are preliminary and upon talent management manager review may be revised to meet current compliance requirements. Matthew Camilo, 02/15/2020 11:10:54 AM Number of Addenda: 0 Note Initiated On: 02/15/2020 10:00 AM PROVATION 02/15/2020 10:0 0 AM EDT Matthew Camilo MD GENERAL SURGICAL ORD ERABLES [facility]OVATION * UPPER GI ENDOSCOPY (02/15/2020 9:59 AM EDT) UPPER GI ENDOSCOPY [facility] Endoscopy Procedure Date: 02/15/2020 9:59 AM ? Patient Name: Loyda Milian ? N: [id number] ? Date of : 1975 ? Age: 44 ? Order #: [id number] ? Instrument Name: [id number] ? Procedure: ? Upper GI endoscopy Indications: ? Diarrhea Patient Profile: ? 44 yo F with diarrhea presents for EGD Providers: ? Matthew Camilo Referring MD: ?CINDY Francis Medicines: ? Monitored Anesthesia Care [...] ? nurse, the anesthesiologist and the ? oracle dba. The procedure was ? verified in the [...] and ? adverse medication reactions. The ? Endoscope was introduced through the ? mouth, and advanced to the second ? part of duodenum. The patient ? tolerated the procedure well. The ? upper GI endoscopy was accomplished ? without difficulty. The patient ? tolerated the procedure well. ? Findings: ? A 2 cm hiatal hernia was present. Otherwise normal ? esophagus. ? The entire examined stomach was normal. ? The examined duodenum was normal. Biopsies were taken ? with a cold forceps for histology. ? Moderate Sedation: ? MAC Impression: ?- 2 cm hiatal hernia. Otherwise ? normal esophagus. ? - Normal stomach. ? - Normal examined duodenum. Biopsied. Recommendation: ?- Await pathology results. ? - Patient has a contact number ? available for emergencies. The signs ? and symptoms of potential delayed ? complications were discussed with the ? patient. Return to normal activities ? tomorrow. Written discharge ? instructions were provided to the ? patient. ? - Return to referring physician as ? previously scheduled. ? Procedure Code(s): ?? --- Professional --- ? 85709, Esophagogastroduoden oscopy, ? flexible, transoral; with biopsy, ? single or multiple Diagnosis Code(s): ?? --- Professional --- ? R19.7, Diarrhea, unspecified ? K44.9, Diaphragmatic hernia without ? obstruction or gangrene ? --- Technical --- ? R19.7, Diarrhea, unspecified ? K44.9, Diaphragmatic hernia without ? obstruction or gangrene CPT copyright 2019 [employer]. All rights reserved. The codes documented in this report are preliminary and upon talent management manager review may be revised to meet current compliance requirements. Matthew Camilo, 02/15/2020 11:05:07 AM Number of Addenda: 0 Note Initiated On: 02/15/2020 9:59 AM PROVATION 02/15/2020 9:59 AM EDT Matthew Camilo MD GENERAL SURGICAL ORD ERABLES PROVATION documented [...] 8:11 AM EDT 1,000 mLs 50 mL/hr documented in this encounter Active and Recently Administered Medications Times are shown in EDT. Continuous Medication Order 02/13/2020 02/14/2020 02/15/2020 lactated ringers infusion (CANCELED) 1,000 mL, at 50 mL/hr, Intravenous, CONTINUOUS, Starting on Mara 02/15/20 at 1030, Until Mara 02/15/20 at 1124, Day of Surgery (Day of Procedure) 0811 (New Bag - Prov ider: Penny Rankin RN)1000 (New Bag - Provider: Geovanna Herrera CRNA)1054 (Stopped - Provider: Geovanna Herrera CRNA) documented in this encounter Care Teams Adjustment Supervisor Relationship Specialty Start Date End Date Tristen Briseno PA [address] [place] [address] PCP - General Family Medicine 02/15/20 documented as of this encounter
--- OUTSIDE RECORDS SUMMARY | 2024-06-02 17:30 | XMS_ITS | Encounter Summary ---
Author Organization [facility] [place] [address] Care Team Providers Care Automated Logistics Specialist Name Role Phone Geovanna Spencer MD Primary Care Provider [phone] Encounter Details Date Type Department Care Team (Late st Contact Info) Description 03/30/2012 2:00 PM EDT - 03/30/2012 3:00 PM EDT [place] [address] Miguelina Thomas MD [facility] [place] [address] COLONOSCOPY, DIAGNOSTIC (WRVU 3.26) Social History Tobacco Use Types Packs/Day Years [...] occurs please contact your M.D. Please call [phone] before 5pm with problems, questions or concerns. After 5pm call [phone] and ask to speak with the printing and stamping supervisor dock operations supervisor. Discharge instructions reviewed with patient who expresses's understanding. * Attachments The following attachments cannot be sent through Care Everywhere. * COLONOSCOPY: WHAT TO EXPECT AT HOME ([place]ESE) documented in this encounter Medications at Time [...] Nausea And Vomiting Social History: Lives in [place], [place]. Works at [employer]. Smokes 0.5ppd. No etoh Family History: Parent [...] 08/15/2024 1:30 PM EDT Appointment Mammography/[place] [address] Tristen Briseno PA [address] [place] [address] documented as of this encounter Procedures Procedure [...] 5:19 PM EDT) Surgical Pathology Report ? [facility] ? Provider: ?? MIGUELINA THOMAS ?Pt. Name: ?? DICKSNO MILIAN ? Acc #: ?[id number] ?Pt. ? Col Date: ?? 03/30/2012 ?/Sex: [...] almaguer tissues. ? Sections/Process ing: ??(T1) ? [facility] ? Provider: ?? MIGUELINA THOMAS ?Pt. Name: ?? DICKSON MILIAN ? Acc #: ?[id number] ?Pt. ? Col Date: ?? 03/30/2012 ?/Sex: [...] EDT Miguelina Thomas MD PATHOLOGY/CYTOLOGY O SHEA [facility] * Specimen to Pathology (surgical or derm) (03/30/2012 3:00 PM EDT) AP Specimen 03/30/2012 3:00 PM EDT 03/30/2012 3:00 PM EDT Narrative [facility] SOLISENNIUM - 03/30/2012 3:00 PM EDT Specimen requisition ordered. ??Separate Pathology report to follow Miguelina Thomas MD PATHOLOGY/CYTOLOGY O RDERABLES Performing Organization Address [facility] Co de Phone Number [facility] * Specimen to Pathology (surgical or derm) (03/30/2012 3:00 PM EDT) AP Specimen 03/30/2012 3:00 PM EDT 03/30/2012 3:00 PM EDT Narrative [facility] - 03/30/2012 3:00 PM EDT Specimen requisition ordered. ??Separate Pathology report to follow Miguelina Thomas MD PATHOLOGY/CYTOLOGY O SHEA Performing Organization Address [facility] Co de Phone Number [facility] * Specimen to Pathology (surgical or derm) (03/30/2012 3:00 PM EDT) AP Specimen 03/30/2012 3:00 PM EDT 03/30/2012 3:00 PM EDT Narrative [facility] - 03/30/2012 3:00 PM EDT Specimen requisition ordered. ??Separate Pathology report to follow Miguelina Thomas MD PATHOLOGY/CYTOLOGY O SHEA Performing Organization Address [facility] de Phone Number [facility] * Specimen to Pathology (surgical or derm) (03/30/2012 3:00 PM EDT) AP Specimen 03/30/2012 3:00 PM EDT 03/30/2012 3:00 PM EDT Narrative [facility] - 03/30/2012 3:00 PM EDT Specimen requisition ordered. ??Separate Pathology report to follow Miguelina Thomas MD PATHOLOGY/CYTOLOGY O SHEA Performing Organization Address [facility] Co de Phone Number [facility] * COLONOSCOPY (03/30/2012 1:53 PM EDT) COLONOSCOPY [facility] Endoscopy Patient Name: Dickson Milian ? Procedure Date: 03/30/2012 1:53 PM ? Date of : 1975 ? Age: 36 ? Order #: [id number] ? Procedure: ? Colonoscopy Indications: ? Hematochezia Providers: ? Miguelina Thomas MD, Arielle Molina, ? RN, Ashley Logan, Weld Lay Out Worker Referring : ?Geovanna Spencer MD, Jeanette Reza, [...] exam was performed. ? The New Lease 2012 was inserted in ? the anus and [...] Active and Recently Administered Medications Care Teams Automated Logistics Specialist Relationship Specialty Start Date End Date Geovanna Spencer MD [address] [place] [address] PCP - General 04/22/10 01/20/16 documented as of this encounter
--- OUTSIDE RECORDS SUMMARY | 2024-06-02 17:30 | XMS_ITS | Encounter Summary ---
Author Organization Formerly [facility], [facility] Address [facility] [place] [address] Care Team Providers Care Counselor Dormitory Name Role Phone Tristen Briseno Primary Care Provider [phone] Encounter Details Date Type Department Care Team (Latest Contact Info) Description 02/15/2020 7:32 AM EDT - 02/15/2020 11:25 AM EDT Hospital Encounter Same Day at [facility] [address] [place] [id number] Matthew Camilo MD [facility] [place] [address] Discharge Disposition: Home Social History Tobacco Use [...] Sign Reading Time Taken Comments Blood Pressure 100/58 02/15/2020 11:13 AM EDT Pulse 69 02/15/2020 11:13 AM EDT Temperature 36.3 ??C (97.3 ??F) 02/15/2020 11:00 AM E DT Respiratory Rate 15 02/15/2020 11:13 AM EDT Oxygen Saturation 100% 02/15/2020 11:13 AM EDT Inhaled Oxygen Concentration - - [...] PHYSICIAN AT : (FOR AFTER HOURS CALL [phone] AND ASK FOR PHYSICIAN COVERING FOR YOUR [...] ??? [place] QUITLINE: ??? [place] QUITLINE: ??? [email or web address] If you smoke, stop now! MAKE SURE [...] Camilo MD - 02/15/2020 11:04 AM EDT [facility] Operative Note Patient Name: Loyda Milian : [id number] MR#: [id number] Case Date: 02/15/2020 Surgeon: Surgeon(s) and Role: [...] 08/15/2024 1:30 PM EDT Appointment Mammography/[place] [address] Tristen Briseno PA [address] [place] [address] documented as of this encounter Procedures Procedure Name Priority Date/Time Associated Diagnosis Comments SPECIMEN TO PATHOLOGY Routine 02/15/2020 10:57 AM EDT SPECIMEN TO PATHOLOGY Routine 02/15/2020 10:57 AM EDT SPECIMEN TO PATHOLOGY Routine 02/15/2020 10:57 AM EDT SPECIMEN TO PATHOLOGY Routine 02/15/2020 10:57 AM EDT SPECIMEN TO PATHOLOGY Routine 02/15/2020 10:57 AM EDT SURGICAL PATHOLOGY REPORT Routine 02/15/2020 10:29 AM EDT Colonoscopy, Diagnostic (12462) 02/15/2020 10:12 AM EDT Diarrhea, unspecified, gastro-esophageal reflux disease without esophagitis Upper GI Endoscopy, Diagnostic (25700) 02/15/2020 10:12 AM EDT Diarrhea, unspecified, gastro-esophageal reflux disease without esophagitis COLONOSCOPY Routine 02/15/2020 10:00 AM EDT UPPER GI ENDOSCOPY Routine 02/15/2020 9: 59 AM EDT documented in this encounter Results * Specimen to Pathology (02/15/2020 10:57 AM EDT) AP Specimen 02/15/2020 10:5 7 AM EDT 02/15/2020 4:[address] [facility] - 02/15/2020 4:20 PM EDT Specimen requisition ordered. ??Separate Pathology report to follow Resulting Agency Comment Spec In Lab / APD Matthew Camilo MD PATHOLOGY/CYTOLOGY O RDERACOTY [facility] [place] [address] * Specimen to Pathology (02/15/2020 10:57 AM EDT) AP Specimen 02/15/2020 10:5 7 AM EDT 02/15/2020 4:[address] [facility] - 02/15/2020 4:20 PM EDT Specimen requisition ordered. ??Separate Pathology report to follow Resulting Agency Comment Spec In Lab / APD Matthew Camilo MD PATHOLOGY/CYTOLOGY O SHEA Performing Organization Address [facility]/[place] [address] * Specimen to Pathology (02/15/2020 10:57 AM EDT) AP Specimen 02/15/2020 10:5 7 AM EDT 02/15/2020 4:[address] [facility] - 02/15/2020 4:20 PM EDT Specimen requisition ordered. ??Separate Pathology report to follow Resulting Agency Comment Spec In Lab / APD Matthew Camilo MD PATHOLOGY/CYTOLOGY O SHEA Performing Organization Address [facility]/[place] [address] * Specimen to Pathology (02/15/2020 10:57 AM EDT) AP Specimen 02/15/2020 10:5 7 AM EDT 02/15/2020 4:[address] [facility] - 02/15/2020 4:20 PM EDT Specimen requisition ordered. ??Separate Pathology report to follow Resulting Agency Comment Spec In Lab / APD Matthew Camilo MD PATHOLOGY/CYTOLOGY O SHEA Performing Organization Address [facility] [place] [address] * Specimen to Pathology (02/15/2020 10:57 AM EDT) AP Specimen 02/15/2020 10:5 7 AM EDT 02/15/2020 4:[address] [facility] - 02/15/2020 4:20 PM EDT Specimen requisition ordered. ??Separate Pathology report to follow Resulting Agency Comment Spec In Lab / APD Matthew Camilo MD PATHOLOGY/CYTOLOGY O [facility] [place] [address] * Surgical Pathology Report (02/15/2020 10:29 AM EDT) Final Diagnosis [id number] ? Location: [facility]; [facility]; A The signing pathologist has (i) examined the [...] Lama MD Verified: ??02/20/2020 ?Pathologist Performed at: ??-[facility] Dept. of Pathology, [place], [place] SPECIMEN(S) SUBMITTED A - rectum, biopsy [...] labeled E1. ??shb 02/20/2020 3:[address] [facility] GI Biopsy 02/15/2020 10:2 9 AM [...] APD Matthew Camilo MD PATHOLOGY/CYTOLOGY O SHEA [facility] [place] [address] * COLONOSCOPY (02/15/2020 10:00 AM EDT) COLONOSCOPY [facility] Endoscopy Procedure Date: 02/15/2020 10:00 AM ? Patient Name: Loyda Milian ? Date of : 1975 ? Age: 44 ? Order #: [id number] ? Instrument Name: [id number] ? Procedure: ? Colonoscopy Indications: ? Chronic [...] ? nurse, the anesthesiologist and the ? marketing program coordinator. The procedure was ? verified in the [...] Procedure Code(s): ?? --- Professional --- ? 58561, Colonoscopy, flexible; with ? removal of tumor(s), polyp(s), or ? other lesion(s) by snare technique ? 04005, 59, Colonoscopy, flexible; ? with biopsy, single or multiple CPT copyright 2019 [employer]. All rights reserved. The codes documented in this report are preliminary and upon larriman review may be revised to meet current compliance requirements. Matthew Camilo, 02/15/2020 11:10:54 AM Number of Addenda: 0 Note Initiated On: 02/15/2020 10:00 AM PROVATION 02/15/2020 10:0 0 AM EDT Matthew Camilo MD GENERAL SURGICAL ORD ERABLES PROVATION * UPPER GI ENDOSCOPY (02/15/2020 9:59 AM EDT) UPPER GI ENDOSCOPY [facility] Endoscopy Procedure Date: 02/15/2020 9:59 AM ? Patient Name: Loyda Milian ? Date of : 1975 ? Age: 44 ? Order #: [id number] ? Instrument Name: [id number] ? Procedure: ? Upper GI endoscopy Indications: ? Diarrhea Patient Profile: ? 44 yo F with diarrhea presents for EGD Providers: ? Matthew Camilo Referring : ?CINDY [...] ? nurse, the anesthesiologist and the ? marketing program coordinator. The procedure was ? verified in the [...] Procedure Code(s): ?? --- Professional --- ? 70527, Esophagogastroduoden oscopy, ? flexible, transoral; with biopsy, ? single or multiple Diagnosis Code(s): ?? --- Professional --- ? R19.7, Diarrhea, unspecified ? K44.9, Diaphragmatic hernia without ? obstruction or gangrene ? --- Technical --- ? R19.7, Diarrhea, unspecified ? K44.9, Diaphragmatic hernia without ? obstruction or gangrene CPT copyright 2019 [employer]. All rights reserved. The codes documented in this report are preliminary and upon larriman review may be revised to meet current [...] CRNA) documented in this encounter Care Teams Counselor Dormitory Relationship Specialty Start Date End Date Tristen Briseno PA [address] [place] [address] PCP - General Family Medicine 02/15/20 documented as of this encounter
--- OUTSIDE RECORDS SUMMARY | 2024-06-02 17:30 | XMS_ITS | Encounter Summary ---
Author Organization [facility] Address [address] [place] [address] Care Team Providers Care Gallery Host Name Role Phone Unavailable Primary Care Provider Unavailabl e Encounter Details Date Type Department Care Team (Late st Contact Info) Description 04/20/2005 Results Only [facility] [address] [place] [address] Chloe Mckeon, [facility] [address] [place] [address] [place] [address] Social History Tobacco Use Types [...] Priority Date/Time Associated Diagnosis Comments CYTOPATHOLOGY Routine 04/20/2005 0:00 EST documented in this encounter Results * CYTOPATHOLOGY (04/20/2005 0:00 EST) Pathology Report: CYTOPATHOLOGY REPORT Reports generated via electronic interface contain original data; however they are lacking the format of the original report. Caution should be taken when reading/interpreti ng unformatted reports. Name: ? DICKSON MILIAN ? Accession #: ? [id number] : ? 1975 (Age: 29) ??F ?Collect Date: ? 04/20/2005 Location: ? [facility] ? Receive Date: ? 04/21/2005 Provider: ?CHLOE MCKEON COLOR PRINTER OPERATOR Copy to: ? Specimen/Source: ?ThinPrep Pap Test, Cervix/Endocervix, processed on [employer] ThinPrep Imaging System, with manual evaluation Last Menstrual Period: ? Other: ? HPVA - HPV testing requested if ASC-US on the current ThinPrep Pap test. ? SPECIMEN ADEQUACY ? Satisfactory for Evaluation - transformation zone component present GENERAL CATEGORIZATION ? Negative for Intraepithelial Lesion or Malignancy ? Document reviewed and electronically signed by: ? Ned Knox, TRACY(ASCP) ? Report Date: ??04/27/2005 07:11 End of Report [facility] 04/20/2005 04/21/2005 us Chloe SALMERONP PATHOLOGY ORDERABLES Final R esult [facility] [address] [place] [address] documented in this encounter Visit Diagnoses Not on filedocumented in this encounter
[2024-06-02 19:09] LABS: ESR 14 mm/hr (0-20)
[2024-06-02 19:44] LABS: Vitamin B12 195 pg/mL (193-986); Vitamin D 25 Total 21.7 ng/mL (30-100)
[2024-06-02 19:55] LABS: C-Reactive Protein < 0.50 mg/dL (<or=0.5)
[2024-06-03 22:23] LABS: Rheumatoid Factor <8.6 IU/mL (<12.0)
[2024-06-05 14:43] LABS: ANA Interpretation Negative (Negative)
== END 2024-06-02 17:28 | disposition home or self-care (01) ==
LOC: NCHCN 17:27
PROVIDERS: PCP Nurse Practitioner Family; Visit Provider Nurse Practitioner Family
DX: M79.641 Pain in right hand (principal); M79.642 Pain in left hand
CPT/HCPCS: 82306; 85652; 82607; 86038; 86140; 86431

== ENCOUNTER 2024-09-12 12:30 | Outpatient (REF) | payer OTHER, SELFPAY ==
[2024-09-12 17:18] LABS: Hemoglobin A1C 5.4 % (<5.7)
[2024-09-12 17:26] LABS: Calculated LDL 193 mg/dL (<100); Cholesterol 272 mg/dL (<200); HDL Cholesterol 55 mg/dL (>or=50); TSH (W/Ref FT4) 2.95 uIU/mL (0.36-3.74); Triglyceride 122 mg/dL (<150); Vitamin D 25 Total 33 ng/mL (30-100)
== END 2024-09-12 12:31 | disposition home or self-care (01) ==
LOC: NCHCN 12:30
PROVIDERS: PCP Physician Assistant Medical; Visit Provider Physician Assistant Medical
DX: E66.3 Overweight (principal); E55.9 Vitamin D deficiency, unspecified
CPT/HCPCS: 80061; 82306; 83036; 84443

== ENCOUNTER 2024-11-07 15:12 | Outpatient (REF) | payer OTHER, SELFPAY ==
[2024-11-08 10:26] LABS: Lyme Ab w Rflx to Lyme Confirm Negative (Negative)
[2024-11-10 14:52] LABS: Anaplasma phagocytophilum Negative (Negative); B. miyamotoi PCR Negative (Negative); Babesia divergens/MO-1 Negative (Negative); Babesia duncani Negative (Negative); Babesia microti Negative (Negative); Ehrlichia chaffeensis Negative (Negative); Ehrlichia ewingii/canis Negative (Negative); Ehrlichia muris eauclairensis Negative (Negative)
== END 2024-11-07 15:13 | disposition home or self-care (01) ==
LOC: NCHCN 15:12
PROVIDERS: PCP Physician Assistant Medical; Visit Provider Physician Assistant Medical
DX: S80.861A Insect bite (nonvenomous), right lower leg, initial encounter (principal); W57.XXXA Bitten or stung by nonvenomous insect and other nonvenomous arthropods, initial encounter
CPT/HCPCS: 87798; 86618

== ENCOUNTER 2025-01-04 08:10 | Emergency (ER) | payer OTHER, SELFPAY ==
[2025-01-04] VITALS (106 sets, daily range): BP systolic 85–130; BP diastolic 19–110; PULSE 60–122; RESP 9–31; TEMP 36.8–37.1; O2SAT 89–100
--- NOTE | 2025-01-04 08:15 | RT.EKG_ITS ---
APPROVED REPORT Exam: Resting ECG Reason for Exam: abdominal pain Patient Location: E HR:109 bpm ECG Measurements Heart Rate 109 AXIS HI 145 P 88 QRSd 84 QRS 86 QT 322 T 44 QTc 433 Conclusion Sinus tachycardia...rate> 99 No Occlusion PR
--- NOTE | 2025-01-04 08:20 | W.ED.GENAD ---
Discharge Plan Disposition Patient Disposition: Home Condition: Stable Discharge Details Clinical Impression: Abdominal pain of unknown cause Primary Care Provider: Tristen Briseno ED Provider: Kenny Medina Home Meds and New Rx's Prescriptions: Continued pantoprazole 40 mg tablet,delayed release (DR/EC) 40 mg PO HS 90 Days Qty: 90 1RF escitalopram oxalate 20 mg tablet 20 mg PO DAILY Patient Comments: TAKE ONE TABLET BY MOUTH EVERY DAY amitriptyline 50 mg tablet 50 mg PO DAILY Patient Comments: TAKE ONE TABLET BY MOUTH EVERY EVENING Discharge Instructions Instructions: Ondansetron, Oxycodone, Abdominal Pain, Adult ED Additional Instructions: You were seen in the emergency department for unknown cause. Your CT shows no acute abnormality, ultrasound of the right upper quadrant shows no gallstones, your labs show no signs of infection, no dysfunction of any abdominal organ, it is unclear what is causing/pain. At this time, given no fibroid which I do not suspect is causing this much pain, there is no other pathology seen on imaging today. 1 possibility is he could have a stomach ulcer with moderate GERD, we did give you Pepcid before you leave take this twice per day which is [id number] famotidine pills. I have sent you home with p.o. Zofran for nausea oxycodone for acute pain as needed, please have a low suspicion for threshold to return for any acute worsening especially with worsening fever or other emergent concerns. Referrals: Tristen Briseno PA [Primary Care Provider, Medicine] Discharge Data Discharge Date/Time-TO BE ENTERED AT DEPARTURE: 01/04/25 14:20 HPI General Date/Time Provider Initiated Documentation: 01/04/25 08:20. HPI Narrative: 49 year-old female presents to ED today by POV/ambulating with her family with a chief complaint of severe abdominal pain that started in R flank, and radiating to RLQ as well as RUQ after a bout of N/V/D yesterday with onset early this morning upon attempting to urinate with sudden onset. Quality described as severe stabbing abdominal pain, no radiation to active nausea/vomiting, denies chest pain, shortness of breath, does feel warm but no overt fever, denies vertigo, visual changes, black/tarry diarrhea. Severity is described as severe. Palliating factors include nothing specific attempted. Provoking factors include nothing specific. Events leading up to the incident/Associated Symptoms: Patient has history of EGD's, diarrhea. Patient not anticoagulated. Related Data Home Medications ?Medication ?Instructions ?Recorded ?Confirmed pantoprazole 40 mg tablet,delayed 40 mg PO HS 90 days #90 tabs 03/25/23 01/04/25 release amitriptyline 50 mg tablet 50 mg PO DAILY 01/04/25 01/04/25 escitalopram oxalate 20 mg tablet 20 mg PO DAILY 01/04/25 01/04/25 Previous Rx's ?Medication ?Instructions ?Recorded pantoprazole 40 mg tablet,delayed 40 mg PO HS 90 days #90 tabs 03/25/23 release Allergies Allergy/AdvReac Type Severity Reaction Status Date / Time latex Allergy Skin Rash Verified 01/04/25 08:22 clarithromycin AdvReac Intermediate rash / Unverified 01/04/25 08:22 puffiness in face promethazine AdvReac Intermediate rash / Unverified 01/04/25 08:22 puffiness in face General Stated Complaint: Abd Prob MAC: 3 Review of Systems All systems reviewed & are unremarkable except as noted in HPI and below Exam Narrative Exam Narrative: GENERAL APPEARANCE: Well-nourished, non-toxic, awake and alert, atraumatic, moderate acute distress. SKIN: Warm, pink, dry, intact, without rashes/lesions/ulcerations. HEAD: Normocephalic, atraumatic, normal hair distribution for gender/age. EYES: Normal conjunctiva, no exudates on lids/lashes. ENT: Nares patent, no circumoral cyanosis, no facial swelling NECK: Supple, trachea midline, painless cervical ROM. LUNGS/CHEST: Lungs CTA bilaterally- no rhonchi/rales/wheezes diffusely, non-labored respirations, normal A/P diameter, symmetrical expansion, no chest wall deformity HEART (CV/PV): Regular rate and rhythm without murmur, no peripheral edema, no JVD. ABDOMEN: Soft, non-distended, + guarding, RUQ tenderness, + Baker's, RLQ tenderness with rebound tenderness, exquisite R CVA tenderness to percussion. MSK: Normal ROM, no swelling/deformity to bilateral UEs or LEs, moving all extremities without weakness, no cyanosis, spine midline without tenderness, normal curvature. NEURO: Mental Status AAOx4 - alert to person, place, time, events No facial droop, no forehead involvement. Motor: No focal weakness - strength 5/5 in bilateral UEs and LEs, proximal and distal, symmetric. Sensory: sensation intact to light touch globally. Gait normal: patient ambulated without ataxia into ED room. PSYCH: euthymic, cooperative, pleasant, appropriate speech Medical Decision Making This dictation utilizes [id number] dictation software and may contain unedited grammatical errors. 49 year-old female presents to ED today by POV/ambulating with her family with a chief complaint of severe abdominal pain that started in R flank, and radiating to RLQ as well as RUQ after a bout of N/V/D yesterday with onset early this morning upon attempting to urinate with sudden onset. Quality described as severe stabbing abdominal pain, no radiation to active nausea/vomiting, denies chest pain, shortness of breath, does feel warm but no overt fever, denies vertigo, visual changes, black/tarry diarrhea. Severity is described as severe. Palliating factors include nothing specific attempted. Provoking factors include nothing specific. Events leading up to the incident/Associated Symptoms: Patient has history of EGD's, diarrhea. Patients' medical history: Intermittent palpitations, laryngeal pharyngeal reflux, history of tubal ligation. Family and social history: Denies heavy EtOH use, eats normal diet. Pertinent exam findings / vital signs include exquisite tenderness to any palpation, right upper quadrant, right lower quadrant and right CVA, tachycardic on arrival which resolved quickly with rest, benign pulmonary exam, neuro intact, nontoxic and afebrile. Differential / pathologies of concern include kidney stone, obstructive uropathy, biliary colic, renal colic, sepsis, appendicitis, SBO, volvulus, ovarian cyst. Diagnostic studies of: - CBC, CMP, D-dimer, lactate, serial troponins, CRP, lipase, UA, blood cultures, CT ABD/pelvis without/with contrast, ultrasound of the right upper quadrant. - CBC shows no acute or actionable abnormality - CMP is completely benign - Lactate negative - D-dimer negative - Lipase negative - Serial troponins negative - CT abdomen/pelvis without/with contrast shows no acute pathology whatsoever, does show slight dilation of the tip of the appendix without appendicitis - Ultrasound of the right upper quadrant shows no acute abnormality, no cholecystitis Interventions of: -1L IVF NS, 1g IV APAP, 15mg IVP ketorolac, 4 mg IVP Zofran, 2gm IV Ceftriaxone, 20mg IVP famotidine, and 0.5mg hydromorphone PRN x2. #4 5mg tab oxycodone to-go -Discussed case with Dr. Jeffers of General Surgery, who saw the patient- agrees with possible OBS admit and possible HIDA scan tomorrow, would need to be medicine admit. I discussed this with the patient, they would prefer to return home with pain meds and see if they improve, with strict return criteria. Patient declined observation prior to hospitalist presentation. ED Course/Assessment/Plan: 49-year-old female presents with exquisite abdominal pain sudden onset after eating this morning, initially felt she may have renal stone with obstruction-versus appendicitis versus SBO versus biliary colic, laboratory workup is completely benign with no abnormalities whatsoever and her imaging is completely negative both ultrasound of right upper quadrant and CT with and without contrast of the abdomen and pelvis she was requiring multiple doses of hydromorphone with quick return of pain so I did obtain surgical consult is reasonable due to the patient's level of pain to observe for and possibly do a HIDA scan. Patient, I did give her famotidine prior to discharge for empiric ulcerative pathology, and sent home after she declined observation with 4 tabs of 5mg oxycodone for pain control and strict return criteria Findings not consistent with appendicitis, gallstones, pancreatitis, choledocholithiasis, ovarian cyst, ureteral stone, sepsis. Disposition of Abdominal Pain of Unknown Cause. Patient verbalized understanding of the plan and return to ED criteria and engaged in shared decision making. Medical Records Medical records reviewed: Yes I reviewed the patient's medical records. Imaging Data Radiologic Study: Attestation: I personally reviewed and interpreted this imaging study as follows: Imaging: CT Scan Radiologist's impression: EXAM: CT ABDOMEN PELVIS WO/W CLINICAL HISTORY: renal colic vs appy vs biliary pathology TECHNIQUE: Imaging Protocol: Axial computed tomography images with coronal and sagittal reformatted images were created and reviewed. CONTRAST MATERIAL: Intravenous: Omnipaque 350 Contrast volume:75 mL Oral: No COMPARISON: CT CT ABDOMEN PELVIS W from 03/05/2021 FINDINGS: ABDOMEN: Lung Bases: No acute abnormality. Liver: Normal density. No measurable mass. Portal, Superior Mesenteric, and Splenic Veins: Unremarkable. Gallbladder and Biliary Tract: No radiodense calculus or dilation. Pancreas: Normal density, no abnormal calcifications or inflammatory process. Spleen: Normal. Adrenals: No masses seen. Kidneys: Normal size, contour and axis. No radiodense stones or obstructive uropathy. No masses seen. Abdominal Aorta: Abdominal portion non-dilated. Mild atherosclerotic calcification is present. Bowel: There are few diverticula seen in the colon but no evidence of acute diverticulitis. There is no evidence of bowel obstruction or bowel wall thickening. The appendix is visualized and contains air. There is some high density material seen in the tip of the appendix. No Pam appendiceal inflammation is seen. The stomach is incompletely distended limiting evaluation. Peritoneal Cavity: No ascites, collection or mesenteric inflammatory response. No free air. Lymph Nodes: Within normal limits. Bones: Within normal limits for the patient's age. Soft Tissues: Unremarkable. PELVIS: Bladder: Symmetric distention, no gross wall thickening. Reproductive Organs: There is a calcified uterine fibroid. Lymph Nodes: Within normal limits. Bones: Within normal limits for the patient's age. IMPRESSION: 1. No acute abdominal or pelvic process. 2. There is no evidence of appendicitis. 3. There is no evidence of nephrolithiasis or hydronephrosis. 4. There is no evidence of cholelithiasis or biliary ductal dilatation. 5. There are few scattered colonic diverticula, but no evidence of acute diverticulitis. 6. Calcified uterine fibroid. Radiologic Study #2: Attestation: I personally reviewed and interpreted this imaging study as follows: Imaging: Ultrasound Radiologist's impression: EXAM: US ABDOMEN LIMITED CLINICAL HISTORY: ?cholecystitis? TECHNIQUE: Ultrasound abdomen performed using standard protocol. COMPARISON: CT CT ABDOMEN PELVIS WO/W from 01/04/2025 FINDINGS: PANCREAS: Normal where visualized. LIVER: Normal. Hepatopetal flow in the Portal Vein. The liver measures in 15.3 cm length. No evidence of a hepatic mass. GALLBLADDER: No evidence of cholelithiasis. No evidence of wall thickening. No pericholecystic fluid identified. BILIARY SYSTEM: Common bile duct measures < 7 mm. No intrahepatic biliary ductal dilation. BAKER'S SIGN: Negative. RIGHT KIDNEY: Kidney is normal in size. No evidence of renal calculi. No evidence of hydronephrosis. No renal mass or cyst identified. ASCITES: None seen. IMPRESSION: Normal sonographic appearance of the upper abdomen. Lab Data Lab results reviewed: Yes I reviewed the patient's lab results. Labs: 01/04/25 09:23 Blood Blood Culture - Pending 01/04/25 08:45 Blood Blood Culture - Pending Laboratory Tests Range/Units 01/04/25 01/04/25 01/04/25 08:26 09:30 10:15 WBC (4.4-10.8) 10^3/uL 6.64 RBC (3.93-5.22) 10^6/uL 4.98 Hgb (11.2-15.7) g/dL 14.9 Hct (36.0-46.0) % 44.0 MCV (80-95) fL 88 MCH (27.0-33.0) pg 29.9 MCHC (32.0-36.0) % 33.9 RDW (11.7-14.6) % 14.4 Plt Count (130-400) 10^3/uL 244 MPV (8.0-11.0) fL 11.0 Immature Gran % % 0.2 Neutrophils % % 55.0 Lymphocytes % % 36.4 Monocytes % % 6.0 Eosinophils % % 1.8 Basophils % % 0.6 Nucleated RBC % (0.0-0.3) % 0.0 Absolute Neutrophils (1.2-6.7) 10^3/uL 3.65 Absolute Lymphocytes (1.2-3.4) 10^3/uL 2.42 Absolute Monocytes (0.1-0.8) 10^3/uL 0.40 Absolute Eosinophils (0.0-0.7) 10^3/uL 0.12 Absolute Basophils (0.0-0.2) 10^3/uL 0.04 D-Dimer (<500) ng/mlFEU 262 VBG Lactate (<or=2.0) mmol/L 1.5 Sodium (136-145) mmol/L 143 Potassium (3.5-5.1) mmol/L 4.0 Chloride (98-107) mmol/L 107 Carbon Dioxide (21.0-32.0) mmol/L 26.0 Anion Gap (3-11) mmol/L 10.0 BUN (7-18) mg/dL 8 Creatinine (0.55-1.02) mg/dL 0.8 Est GFR (CKD-EPI 2020) (mL/min/1.73m2) 90.83 Glucose (74-106) mg/dL 99 Calcium (8.5-10.1) mg/dL 9.4 Total Bilirubin (0.2-1.0) mg/dL 0.3 AST (15-37) U/L 16 ALT (14-59) U/L 18 Alkaline Phosphatase (46-116) U/L 108 Troponin I (<or=51) ng/L 5 5 C-Reactive Protein (<or=0.5) mg/dL < 0.50 Total Protein (6.4-8.2) g/dL 7.1 Albumin (3.4-5.0) g/dL 3.8 Lipase (<78) U/L 40 Urine Color (Yellow) Yellow Urine Clarity (Clear) Clear Urine pH (5-8) 7.0 Ur Specific [place] (1.005-1.025) 1.010 Urine Protein (Neg-Trace) mg/dL Negative Urine Ketones (Negative) mg/dL Negative Urine Blood (Negative) Trace-intact H Urine Nitrite (Negative) Negative Urine Bilirubin (Negative) Negative Urine Urobilinogen (Up to 0.2) mg/dL 0.2 Ur Leukocyte Esterase (Negative) Negative Urine RBC (0-2) HPF 0-2 Urine WBC (0-5) HPF Negative Ur Epithelial Cells (Negative) HPF Rare Urine Crystals (Negative) HPF Negative Urine Bacteria (Negative) HPF Negative Urine Casts (Negative) LPF Negative Urine Mucus (Negative) Negative Ur Culture Indicated? No Urine Glucose (Negative) mg/dL Negative PFSH All Active Problems (Updated 01/04/25 @ 13:59 by CINDY Chen) Abdominal pain of unknown cause (Acute) Postmenopausal bleeding (Acute) Medical History (Updated 01/04/25 @ 13:59 by CINDY Chen) Intermittent palpitations Dysphonia Laryngopharyngeal reflux (LPR) Surgical History (Updated 12/24/22 @ 15:33 by Nita Payne MD) History of dilation and curettage 12/16/22: with novasure endometrial ablation History of shoulder surgery H/O tubal ligation Family History (Updated 11/03/22 @ 14:33 by Hiral Salas RN) Mother Breast cancer Cancer uterine Paternal Aunt Breast cancer Social History Smoking/Tobacco Use Status: Current every day Tobacco Type: cigarettes Smoking risk assessment performed?: Yes Alcohol Intake: former Drug use: Occasionally Substance use type: marijuana Housing: house Do you feel safe at home: Yes Do you feel safe in your relationship?: Yes History History 2 Para 2 Hx # Term Pregnancies 2 Multiple births Hx # Pregnancies Ectopic pregnancies AB induced Hx Number of Living Children 2 AB spontaneous
--- NOTE | 2025-01-04 08:30 | DI.CT_ITS ---
Exam(s) CT ABDOMEN PELVIS WO/W EXAM: CT ABDOMEN PELVIS WO/W CLINICAL HISTORY: renal colic vs appy vs biliary pathology TECHNIQUE: Imaging Protocol: Axial computed tomography images with coronal and sagittal reformatted images were created and reviewed. CONTRAST MATERIAL: Intravenous: Omnipaque 350 Contrast volume:75 mL Oral: No COMPARISON: CT CT ABDOMEN PELVIS W from 03/05/2021 FINDINGS: ABDOMEN: Lung Bases: No acute abnormality. Liver: Normal density. No measurable mass. Portal, Superior Mesenteric, and Splenic Veins: Unremarkable. Gallbladder and Biliary Tract: No radiodense calculus or dilation. Pancreas: Normal density, no abnormal calcifications or inflammatory process. Spleen: Normal. Adrenals: No masses seen. Kidneys: Normal size, contour and axis. No radiodense stones or obstructive uropathy. No masses seen. Abdominal Aorta: Abdominal portion non-dilated. Mild atherosclerotic calcification is present. Bowel: There are few diverticula seen in the colon but no evidence of acute diverticulitis. There is no evidence of bowel obstruction or bowel wall thickening. The appendix is visualized and contains air. There is some high density material seen in the tip of the appendix. No Pam appendiceal infla mmation is seen. The stomach is incompletely distended limiting evaluation. Peritoneal Cavity: No ascites, collection or mesenteric inflammatory response. No free air. Lymph Nodes: Within normal limits. Bones: Within normal limits for the patient's age. Soft Tissues: Unremarkable. PELVIS: Bladder: Symmetric distention, no gross wall thickening. Reproductive Organs: There is a calcified uterine fibroid. Lymph Nodes: Within normal limits. Bones: Within normal limits for the patient's age. IMPRESSION: 1. No acute abdominal or pelvic process. 2. There is no evidence of appendicitis. 3. There is no evidence of nephrolithiasis or hydronephrosis. 4. There is no evidence of cholelithiasis or biliary ductal dilatation. 5. There are few scattered colonic diverticula, but no evidence of acute diverticulitis. 6. Calcified uterine fibroid. RADIATION DOSE DELIVERED: 1,174.32mGy.cm Total DLP 1,174.32mGy.cm Total DLP DATA REPOSITORY: All CT scans at this facility are submitted to the National Radiology Data Registry (NRDR) Dose Index Registry (DIR) with the [employer] (ACR). RADIATION OPTIMIZATION: All CT scans at this facility use at least one of these dose optimization techniques: automated exposure control; mA and/or kV adjustment per patient size (includes targeted exams where dose is matched to clinical indication); or iterative reconstruction.
[2025-01-04 08:44] LABS: Abs Immature Grans 0.01 10^3/uL (0.0-0.06); HCT 44.0 % (36.0-46.0); HGB 14.9 g/dL (11.2-15.7); Immature Grans % 0.2 %; MCH 29.9 pg (27.0-33.0); MCHC 33.9 % (32.0-36.0); MCV 88 fL (80-95); MPV 11.0 fL (8.0-11.0); Platelet Count 244 10^3/uL (130-400); RBC 4.98 10^6/uL (3.93-5.22); RDW 14.4 % (11.7-14.6); RDW-SD 46.5 fL; WBC 6.64 10^3/uL (4.4-10.8)
[2025-01-04] MEDS: Ketorolac 15 MG/ML VIAL IVP (08:52)
[2025-01-04] MEDS: Ondansetron 4 MG/2 ML VIAL IVP (08:52)
[2025-01-04] MEDS: ACETAMINOPHEN 1,000 MG/100 ML BAG 400 MG IVPB (08:53)
[2025-01-04] MEDS: Normal Saline - Diluent 50 ML VIAL IJ (09:00)
[2025-01-04] MEDS: Omnipaque 350 MG/ML 500 ML BTL-Imaging package 75 ML IJ (09:01)
[2025-01-04 09:03] LABS: ALT 18 U/L (14-59); AST 16 U/L (15-37); Albumin 3.8 g/dL (3.4-5.0); Alkaline Phosphatase 108 U/L (46-116); Anion Gap 10.0 mmol/L (3-11); BUN 8 mg/dL (7-18); Bilirubin, Total 0.3 mg/dL (0.2-1.0); CO2 26.0 mmol/L (21.0-32.0); Calcium 9.4 mg/dL (8.5-10.1); Chloride 107 mmol/L (98-107); Estimated GFR 90.83 (mL/min/1.73m2); Glucose 99 mg/dL (74-106); Lipase 40 U/L (<78); Potassium 4.0 mmol/L (3.5-5.1); Sodium 143 mmol/L (136-145); Total Protein 7.1 g/dL (6.4-8.2); Troponin I 5 ng/L (<or=51)
[2025-01-04 09:09] LABS: C-Reactive Protein < 0.50 mg/dL (<or=0.5)
[2025-01-04] MEDS: Normal Saline 1,000 ML 1000 ML IV (09:39)
[2025-01-04] MEDS: cefTRIAXone 2 GM/50 ML BAG IVPB (09:42)
[2025-01-04 10:24] LABS: Glucose Negative (Negative)
[2025-01-04 10:25] LABS: D-Dimer 262 ng/mlFEU (<500)
[2025-01-04] MEDS: HYDROmorphone 2 MG/ML SYR 0.5 MG IVP ×2 (10:27→12:57)
[2025-01-04 10:33] LABS: Troponin I 5 ng/L (<or=51)
[2025-01-04 10:34] LABS: C & S Indicated? No; RBC 0-2 HPF (0-2); WBC Negative HPF (0-5)
--- NOTE | 2025-01-04 11:15 | DI.US_ITS ---
Exam(s) US ABDOMEN LIMITED EXAM: US ABDOMEN LIMITED CLINICAL HISTORY: ?cholecystitis? TECHNIQUE: Ultrasound abdomen performed using standard protocol. COMPARISON: CT CT ABDOMEN PELVIS WO/W from 01/04/2025 FINDINGS: PANCREAS: Normal where visualized. LIVER: Normal. Hepatopetal flow in the Portal Vein. The liver measures in 15.3 cm length. No evidence of a hepatic mass. GALLBLADDER: No evidence of cholelithiasis. No evidence of wall thickening. No pericholecystic fluid identified. BILIARY SYSTEM: Common bile duct measures < 7 mm. No intrahepatic biliary ductal dilation. YI'S SIGN: Negative. RIGHT KIDNEY: Kidney is normal in size. No evidence of renal calculi. No evidence of hydronephrosis. No renal mass or cyst identified. ASCITES: None seen. IMPRESSION: Normal sonographic appearance of the upper abdomen. DATA REPOSITORY:
[2025-01-04] MEDS: Ondansetron O.D.T. 4 MG TABEF, 3 TABS/BTL PO (14:16)
[2025-01-04] MEDS: Famotidine 20 MG/2 ML VIAL IVP (14:17)
--- NOTE | 2025-01-05 16:37 | SCONE_ITS ---
Date of service: 01/04/25 Time of Service: 14:00 Assessment and Plan Assessment and plan (1) Abdominal pain: Status: Acute Assessment and plan: Unclear the cause of her abdominal pain. May be related to biliary dyskinesia, or perhaps a mild gastrointestinal disturbance. There is nothing from her workup, that would be concerning for acute surgical or medical deterioration. In some cases it is reasonable to observe patients overnight, especially if they suspect continued vomiting. Have offered her there is some option, she would like to return home and follow-up as an outpatient as needed History of Present Illness History of Present Illness Chief Complaint: Abdominal pain Narrative: Ms. Milian is a 49-year-old female, she was seen in the ER today for abdominal pain, she reports that this is on her right groin, is not associated with fatty or greasy foods. Began early this morning, with no clear etiology. Was associated with nausea and vomiting and some loose stool. Has not experienced similar type pain in the past. Review of Systems All systems reviewed & are unremarkable except as noted in HPI and below PFSH All Active Problems (Updated 01/05/25 @ 16:44 by Andrez Jeffers MD) Abdominal pain (Acute) Abdominal pain of unknown cause (Acute) Postmenopausal bleeding (Acute) Medical History (Updated 01/05/25 @ 16:44 by Andrez Jeffers MD) Intermittent palpitations Dysphonia Laryngopharyngeal reflux (LPR) Surgical History (Updated 12/24/22 @ 15:33 by Nita Payne MD) History of dilation and curettage 12/16/22: with novasure endometrial ablation History of shoulder surgery H/O tubal ligation Family History (Updated 11/03/22 @ 14:33 by Hiral Salas RN) Mother Breast cancer Cancer uterine Paternal Aunt Breast cancer Social History Smoking/Tobacco Use Status: Current every day Tobacco Type: cigarettes Smoking risk assessment performed?: Yes Alcohol Intake: former Drug use: Occasionally Substance use type: marijuana Housing: house Do you feel safe at home: Yes Do you feel safe in your relationship?: Yes History History 2 2 Para 2 Hx # Term Pregnancies 2 Multiple births Hx # Pregnancies Ectopic pregnancies AB induced Hx Number of Living Children 2 AB spontaneous Exam Narrative Exam Narrative: Patient is a pleasant adult female, she is awake and alert, does not appear in substantial discomfort. Her and father are present in the ER examination room at time of my visit. Patient's cardiac exam is regular rate and rhythm without murmur. Her pulmonary exam is clear to auscultation bilaterally. Her abdomen is soft, very mildly tender near McBurney's point, also tender in the right upper quadrant, just below the costal margin. There is no palpable flank tenderness today. Her abdomen is not obese. Vital signs are unremarkable. Results Last Vital Signs Temp 37.1 C 01/04/25 14:20 Pulse 74 01/04/25 14:10 Resp 18 01/04/25 14:10 BP 115/58 L 01/04/25 14:01 Pulse Ox 98 01/04/25 14:20 Labs 01/04/25 08:26 01/04/25 08:26 Labs: CBC and chemistry frees are really quite normal. Imaging Abdomen CT scan report/results: report reviewed, image reviewed and other (Patient did have an ultrasound and some CT of the abdomen pelvis performed here. Both of these are really unremarkable. Her appendix is normal, her gallbladder has no no abnormal appearance.)
== END 2025-01-04 14:20 | disposition home or self-care (01) ==
PROVIDERS: Emergency Provider Physician Assistant; PCP Physician Assistant Medical
DX: R10.11 Right upper quadrant pain (principal); R10.31 Right lower quadrant pain; R00.1 Bradycardia, unspecified; F17.210 Nicotine dependence, cigarettes, uncomplicated
CPT/HCPCS: 36415; 80053; 83690; 87040; 93005; 96365; 96367; 96375; 96376; 99285; 74178; 76705; 81003; 81015; 83605; 84484; 85025; 85379; 86140; 93010; J0131; J0696; J1171; J1885; J2405